=== PATIENT | female | born 1960 | race African-American/Black ===

== ENCOUNTER 2019-02-07 10:42 | Emergency (ER) | payer OTHER ==
[~2019-02-07] VITALS: Ht 170.2 cm; Wt 154.9 kg
[2019-02-07 10:43] VITALS: BP 127/92
--- NOTE | 2019-02-07 11:06 | NUR ---
PT AMBULATED TO ROOM 3 WITH STEADY GAIT.
--- NOTE | 2019-02-07 11:17 | NUR ---
PT A&OX4, BREATHING EVEN AND UNLABORED. SKIN WARM, PINK, AND DRY. AMBULATES WITH STEADY GAIT. C/O BILAT FOOT PAIN 9/10 X 1 MONTH, LEFT FOOT PAIN WORSE THAN RIGHT. PT HAD FALL 2 WEEKS AGO, DENIES LOC.
--- NOTE | 2019-02-07 12:24 | NUR ---
PT HAS BEEN EVALUATED BY DR. MCGINNIS.
--- NOTE | 2019-02-07 13:40 | NUR ---
PT RESTING QUIETLY. BREATHING EVEN AND UNLABORED. AWAITING DISPOSITION.
[2019-02-07 14:13] VITALS: BP 128/80
--- NOTE | 2019-02-07 14:13 | NUR ---
Patient discharged with v/s stable. Written and verbal after care instructions given and explained. Patient alert, oriented and verbalized understanding of instructions. Ambulatory with steady gait. All questions addressed prior to discharge. ID band removed. Patient advised to follow up with PMD. Opportunity to ask questions provided and answered.
== END 2019-02-07 14:13 | disposition home or self-care (01) ==
LOC: MED 10:42
DX: M79.2 Neuralgia and neuritis, unspecified (principal); E11.9 Type 2 diabetes mellitus without complications; I10 Essential (primary) hypertension; F32.9 Major depressive disorder, single episode, unspecified; Z90.710 Acquired absence of both cervix and uterus; Z88.6 Allergy status to analgesic agent; Z88.8 Allergy status to other drugs, medicaments and biological substances; Z98.890 Other specified postprocedural states
CPT/HCPCS: 73590; 73630; 93971; 99284; Q0092

== ENCOUNTER 2019-03-17 18:41 | Emergency (ER) | payer OTHER ==
[~2019-03-17] VITALS: Ht 170.2 cm; Wt 154.7 kg
[2019-03-17 18:41] VITALS: BP 102/63
--- NOTE | 2019-03-17 18:41 | NUR ---
Patient BIBA ACLS, transferred to bed 6. RN evaluating patient at bedside.
--- NOTE | 2019-03-17 18:45 | NUR ---
PT BIB BY AMBULANCE. C/O BILATERAL LEG PAIN, STATES PAIN AT HER BACK WELL. AMBULATED HERSELF TO THE BEDSIDE. BS 76 AT THIS TIME. HX OF HTN , ARTHIRITIS, DM. PT RESTING AT [facility], WILL CONTINUE TO MONITOR PT.
--- NOTE | 2019-03-17 19:00 | NUR ---
RECEIVED REPORT FROM KIAH GARZA. TRANSFER OF CARE AT THIS TIME.
--- NOTE | 2019-03-17 19:24 | NUR ---
DR. RASHID BEDSIDE EVALUATING PT
--- NOTE | 2019-03-17 19:41 | NUR ---
US AT BEDSIDE.
--- NOTE | 2019-03-17 20:01 | NUR ---
PATIENT TAKEN TO XRAY VIA GURHI WITH TECH.
[2019-03-17 20:05] LABS: BASOPHILS # (AUTO) 0.1 K/uL (0.00-0.22); BASOPHILS % (AUTO) 0.5 % (0.0-2.0); EOSINOPHILS # (AUTO) 0.3 K/uL (0-0.4); EOSINOPHILS % (AUTO) 2.8 % (0.0-4.0); HEMATOCRIT 32.3 % (36-48); HEMOGLOBIN 10.2 g/dL (12.0-16.0); LYMPHOCYTES % (AUTO) 18.7 % (20.5-51.1); MEAN CORPUSCULAR HEMOGLOBIN 27 pg (27-31); MEAN CORPUSCULAR HGB CONC 32 g/dL (33-37); MEAN CORPUSCULAR VOLUME 86.1 fL (80-94); MONOCYTES # (AUTO) 0.7 K/uL (0.8-1.0); MONOCYTES % (AUTO) 6.7 % (1.7-9.3); NEUTROPHILS # (AUTO) 7.6 K/uL (1.8-7.7); NEUTROPHILS % (AUTO) 71.3 % (42.2-75.2); PLATELET COUNT (AUTO) 204 K/uL (140-450); RED BLOOD CELL COUNT(AUTO) 3.76 MIL/uL (4.20-5.40); RED CELL DISTRIBUTION WIDTH 16.5 % (11.6-13.7); WHITE BLOOD COUNT (AUTO) 10.6 K/uL (4.8-10.8)
--- NOTE | 2019-03-17 20:14 | NUR ---
PATIENT RETURN FROM XRAY.
[2019-03-17 20:18] LABS: ANION GAP 12.8 (8-16); CARBON DIOXIDE 24.6 mmol/L (21-32); CREATININE 1.7 mg/dL (0.6-1.3); POTASSIUM 5.4 mmol/L (3.5-5.1)
[2019-03-17 20:25] LABS: ALBUMIN 3.7 g/dL (3.4-5.0); TOTAL BILIRUBIN 0.3 mg/dL (0.0-1.0)
[2019-03-17] MEDS ORDERED: HYDROcodone/APAP 5/325 MG 1 TAB TAB PO ONE (21:05)
--- NOTE | 2019-03-17 21:15 | NUR ---
RECEIVED REPORT FROM AM RN, PT LAYING IN BED, RR EVEN AND UNLABORED. VSS, REPORTS 7/10 LLE PAIN AT THIS TIME, ADMINISTERED NORCO PO ORDERED WITH EDUCATION, PT TOLERATED WELL.
--- NOTE | 2019-03-17 21:16 | NUR ---
DR RASHID AT BEDSIDE
[2019-03-17 22:06] VITALS: BP 91/54
== END 2019-03-17 22:06 | disposition home or self-care (01) ==
LOC: MED 18:41
DX: M54.10 Radiculopathy, site unspecified (principal); E11.9 Type 2 diabetes mellitus without complications; I10 Essential (primary) hypertension; Z90.710 Acquired absence of both cervix and uterus; Z88.8 Allergy status to other drugs, medicaments and biological substances
CPT/HCPCS: 36415; 72170; 80053; 82948; 83880; 85025; 93971; 99284; Q0092

== ENCOUNTER 2019-05-09 11:14 | Inpatient (IN) | payer OTHER ==
[~2019-05-09] VITALS: Ht 165.1 cm; Wt 152.0 kg
[2019-05-09] VITALS (19 sets, daily range): BP systolic 77–150; BP diastolic 50–103
--- NOTE | 2019-05-09 11:17 | NUR ---
PATIENT BIBA TO BED 08 AT THIS TIME,.
--- NOTE | 2019-05-09 11:30 | NUR ---
JONES FROM HOME FOR GEN WEAKNESS AND ALOC AFTER A WELFARE CHECK WAS DONE. PT WAS FOUND SITTING ON HER WALKER WITHOUT PANTS ON. PT STATES SHE HASNT EATEN IN 4 DAYS. PER EMS, CASTING COORDINATOR CONFIRMED THERE WAS NOT ANY FOOD IN THE HOUSE. STRENGTH EQUAL BLE/BUE, NO FACIAL ASSYMETRY NOTED, NO UNILATERAL WEAKNESS NOTED. PT IS A & O X4. FSBS 92. PT PLACED IN GOWN AND ON BEDSIDE CROWN PERFORATOR OPERATOR AT THIS TIME.
[2019-05-09] MEDS ORDERED: NACL 0.9% 1,000 ML IV ONE ×2 (12:15→15:20)
[2019-05-09 13:14] LABS: BASOPHILS % (AUTO) 0.5 % (0.0-2.0); EOSINOPHILS % (AUTO) 0.1 % (0.0-4.0); HEMATOCRIT 32.3 % (36-48); LYMPHOCYTES # (AUTO) 0.8 K/uL (2.5-16.5); LYMPHOCYTES % (AUTO) 7.4 % (20.5-51.1); MEAN CORPUSCULAR HEMOGLOBIN 27 pg (27-31); MEAN CORPUSCULAR HGB CONC 31 g/dL (33-37); MEAN CORPUSCULAR VOLUME 86.9 fL (80-94); MONOCYTES # (AUTO) 0.8 K/uL (0.8-1.0); MONOCYTES % (AUTO) 7.8 % (1.7-9.3); NEUTROPHILS # (AUTO) 8.7 K/uL (1.8-7.7); NEUTROPHILS % (AUTO) 84.2 % (42.2-75.2); PLATELET COUNT (AUTO) 263 K/uL (140-450); RED BLOOD CELL COUNT(AUTO) 3.72 MIL/uL (4.20-5.40)
--- NOTE | 2019-05-09 13:21 | NUR ---
# 14 FR Rocha catheter utilizing sterile technique. Immediate return of 200 ml CLEAR YELLOW urine noted. Urine sample collected and sent to lab. Pt tolerated procedure WELL.
--- NOTE | 2019-05-09 13:23 | NUR ---
BP 88/41, DR. MCGININS MADE AWARE
[2019-05-09 13:31] LABS: WHITE BLOOD COUNT (AUTO) 10.3 K/uL (4.8-10.8)
[2019-05-09 13:32] LABS: ALBUMIN 3.5 g/dL (3.4-5.0); ANION GAP 24.8 (8-16); CARBON DIOXIDE 18.5 mmol/L (21-32); TOTAL BILIRUBIN 0.5 mg/dL (0.0-1.0)
[2019-05-09 13:44] LABS: POTASSIUM 8.3 mmol/L (3.5-5.1)
[2019-05-09 13:45] LABS: CREATININE 13.3 mg/dL (0.6-1.3)
[2019-05-09] MEDS ORDERED: SODIUM BICARBONATE 8.4% PFS 50 MEQ/50 ML SYR IVP ONE (13:50)
[2019-05-09] MEDS ORDERED: ALBUTEROL 0.083% 2.5 MG/3 ML NEBU INH ONE (13:50)
[2019-05-09] MEDS ORDERED: PATIROMER CALCIUM SORBITEX 8.4 GM PKT PO ONE (13:50)
[2019-05-09] MEDS ORDERED: DEXTROSE 50% 50 ML SYR IVP ONE (13:50)
[2019-05-09] MEDS ORDERED: INSULIN REGULAR, HUMAN 100 UNIT/ML VIAL SUBQ ONE (13:50)
--- NOTE | 2019-05-09 14:00 | NUR ---
pt resting in bed, alert and arousable to verbal stimuli
[2019-05-09 14:08] LABS: APPEARANCE,URINE HAZY (CLEAR); BILIRUBIN,URINE NEGATIVE (NEGATIVE); BLOOD, URINE NEGATIVE (NEGATIVE); COLOR,URINE YELLOW (YELLOW); LEUKOCYTE ESTERASE ,URINE 2+ (NEGATIVE); NITRITE, URINE NEGATIVE (NEGATIVE); UGLUCOSE NEGATIVE (NEGATIVE)
[2019-05-09 14:17] LABS: RBC,URINE 0 /HPF (0-5)
[2019-05-09 14:18] LABS: WBC,URINE 16-25 (MOD) /HPF (0-5)
--- NOTE | 2019-05-09 14:30 | NUR ---
pt bp 86/56, dr. connolly aware
[2019-05-09] MEDS ORDERED: ONDANSETRON 4 MG/2 ML VIAL IM/IVP PRN (14:45)
[2019-05-09] MEDS ORDERED: ACETAMINOPHEN 325 MG TAB PO PRN (14:45)
[2019-05-09] MEDS ORDERED: ZOLPIDEM 5 MG TAB PO PRN (14:45)
[2019-05-09] MEDS ORDERED: DOCUSATE SODIUM 100 MG GELCAP PO PRN (14:45)
[2019-05-09] MEDS ORDERED: LORazepam 2 MG/ML VIAL IM/IVP PRN (14:45)
[2019-05-09] MEDS ORDERED: HYDROcodone/APAP 5/325 MG 1 TAB TAB PO PRN (14:45)
[2019-05-09] MEDS ORDERED: cefTRIAXone 1,000 MG VIAL ONE (14:54)
[2019-05-09] MEDS ORDERED: DEXT 5% /NACL 0.9% 1,000 ML IV SCH (15:20)
[2019-05-09] MEDS ORDERED: NACL 0.9% 2,000 ML IV SCH (15:35)
--- NOTE | 2019-05-09 15:40 | NUR ---
wound noted to inside of pt buttocks, photo taken.
--- NOTE | 2019-05-09 15:45 | NUR ---
RECEIVE PT. FROM ER IN [facility].SHE IS AWAKE AND CONFUSE. SKIN DRY HAS INCONTINENT DERMATITIS ON PERINEAL AREA[SEE PHOTO.] IV FLUID HAS #22 GATE OH RT ARM , INFUSING 0.9NS BOLUS, . ADM TO ICU#2 NASAL SWAB FOS MRSA TAKEN SENT TO LAB.
--- NOTE | 2019-05-09 15:53 | NUR ---
Patient will be admitted to care of [facility]. Admited to ICU. Will go to room 2. Belongings list completed. Report to KAYLA KING.
[2019-05-09] MEDS ORDERED: Z-GUARD PASTE TP PRN (15:55)
[2019-05-09] MEDS ORDERED: INSULIN LISPRO SLIDING SCALE 100 UNITS/ML VIAL SUBQ PRN (16:00)
[2019-05-09] MEDS ORDERED: DEXTROSE 50% 50 ML SYR IVP PRN (16:00)
--- NOTE | 2019-05-09 16:00 | NUR ---
DR URRUTIA AT BED SIDE , CALL THE SON PJ OBTAIN CONSENT FOR KIP CATH INSERTION .
[2019-05-09] MEDS ORDERED: SODIUM BICARBONATE 8.4% 50 MEQ in DEXTROSE 5% 1,000 ML IV SCH (16:15)
[2019-05-09] MEDS: MORPHINE SULFATE 2 MG/ML SYR IVP PRN (16:36)
[2019-05-09] MEDS ORDERED: LORazepam 2 MG/ML VIAL IM/IVP SCH (16:59)
[2019-05-09] MEDS: BLOOD GLUCOSE MONITORING 1 DEV DEV FS SCH ×2 (17:03→21:46)
[2019-05-09] MEDS ORDERED: LORazepam 2 MG/ML VIAL ONE (17:09)
--- NOTE | 2019-05-09 17:15 | NUR ---
KIP ELENA. INSERTED BY DR. URRUTIA.
[2019-05-09 17:25] LABS: PROTHROMBIN TIME 10.5 secs (10.8-13.4)
[2019-05-09 17:26] LABS: ANION GAP 26.3 (8-16); CARBON DIOXIDE 16.1 mmol/L (21-32)
[2019-05-09 17:39] LABS: AMYLASE 181 U/L (25-115); LIPASE 1171 U/L (73-393); MAGNESIUM 2.8 mg/dL (1.8-2.4); THYROID STIMULATING HORMONE 0.62 uIU/mL (0.34-3.74)
[2019-05-09 17:46] LABS: POTASSIUM 7.4 mmol/L (3.5-5.1)
[2019-05-09 17:47] LABS: PHOSPHORUS 11.6 mg/dL (2.5-4.9)
--- NOTE | 2019-05-09 17:54 | NUR ---
SEEN BY DR. BANERJEE AT BED SIDE. HEMODIALYSIS ORDERED. CALLED [facility] TO SCHEDULE FOR HD.
[2019-05-09 18:27] LABS: BARBITURATE, URINE POS. ng/ml (NEG <=200); CANNABINOID, URINE NEG. ng/mL (NEG <=50); COCAINE, URINE NEG. ng/mL (NEG <=300); OPIATE, URINE NEG. ng/mL (NEG <=2000); PHENCYCLIDINE SCREEN,URINE NEG. ng/mL (NEG <=25)
[2019-05-09] MEDS ORDERED: NOREPINEPHRINE 16 MG in DEXTROSE 5% 250 ML IV PRN (18:45)
--- NOTE | 2019-05-09 19:00 | NUR ---
HEMODIALYSIS NURSE ARRIVED.
--- NOTE | 2019-05-09 19:20 | NUR ---
REPORT GIVED TO JOHN GARZA .
[2019-05-09 19:22] LABS: BENZODIAZEPINE, URINE POS. ng/mL (NEG <=200)
--- NOTE | 2019-05-09 19:25 | NUR ---
RECEIVED REPORT FROM DAYSHIFT NURSE AT PATIENT'S BEDSIDE, DIALYSIS NURSE AT BEDSIDE STARTING DIALYSIS. PATIENT SLIGHTLY SEDATED FROM ATIVAN, EYES CLOSED AND CANNOT FOLLOW COMMANDS, ON NASAL CANNULA 3L WITH SATURATION 100%.
[2019-05-09 19:29] LABS: CARBON DIOXIDE 21.2 mmol/L (21-32)
[2019-05-09 19:32] LABS: POTASSIUM 6.2 mmol/L (3.5-5.1)
[2019-05-09 19:33] LABS: CREATININE 10.9 mg/dL (0.6-1.3)
[2019-05-09] MEDS: SODIUM BICARBONATE 8.4% 150 MEQ in DEXTROSE 5% 1,000 ML IV SCH (19:57)
--- NOTE | 2019-05-09 20:00 | NUR ---
RECEIVED PATIENT RESTING WELL IN BED, EYES CLOSED, DOES NOT WITHDRAW TO PAIN, EYES ARE PERRL, SLUGGISH 3MM. SKIN IS WARM AND DRY. TEMP 96.8, HR-100, BP-86/68, O2SAT 99% AND RR-9. PATIENT IS ON NASAL CANNULA 3L. RIGHT IJ KIP CATH WITH PIGTAIL INSERTED TODAY, RIGHT FOREARM PERIPHERAL IV 22G, FLUSHED, AND PATENT. LUNG SOUNDS ARE CLEAR, S1S2 HEARD. CAP REFILL <3 SECONDS. BOWEL SOUNDS ARE HYPOACTIVE, ABDOMEN LARGE, SOFT, AND NONTENDER. SKIN IS NOT INTACT, A RIGHT KNEE SCAB/SCRAPE IS NOTED AND PATIENT HAS INCONTINENT DERMATITIS TO THE FOLDS OF BUTTOCKS. BED IN LOWEST POSITION, SIDE RAILS UP, SAFETY CHECKS ARE ASSESSED. MD MADE AWARE OF LOW BLOOD PRESSURE. WILL FOLLOWUP ON NEW ORDERS.
[2019-05-09] MEDS: NACL 0.9% 1,000 ML IV SCH (20:29)
--- NOTE | 2019-05-09 22:37 | NUR ---
DIALYSIS COMPLETE, PATIENT TOLERATED WELL, 0 OUTPUT.
--- NOTE | 2019-05-09 22:42 | NUR ---
DISCONTINUED LEVOPHED DRIP, PATIENT'S BLOOD PRESSURE REMAINS WITHIN NORMAL LIMITS. WILL CONTINUE TO MONITOR.
[2019-05-10] VITALS (10 sets, daily range): BP systolic 93–124; BP diastolic 53–69
--- NOTE | 2019-05-10 | NUR ---
PATIENT TACHYCARDIC, HEART RATE RANGES BETWEEN 105-120'S. ALL OTHER VITAL SIGNS WITHIN NORMAL LIMITS. SBP MAINTAINS >90. PATIENT RESTING COMFORTABLY IN BED, EYES CLOSED, SIDERAILS UP AND BED LOCKED AND IN LOWEST POSITION. CONTINUE WITH CLOSE MONITORING.
[2019-05-10] MEDS: SODIUM BICARBONATE 8.4% 150 MEQ in DEXTROSE 5% 1,000 ML IV SCH (02:12)
--- NOTE | 2019-05-10 03:00 | NUR ---
SUCCESSFULLY INSERTED ROLLE CATHETER IN FIRST ATTEMPT, PATIENT TOLERATED WELL. URINE IS YELLOW AND HAZY AND HAS ABNORMAL ODOR.
[2019-05-10] MEDS: NACL 0.9% 1,000 ML IV SCH (03:04)
--- NOTE | 2019-05-10 03:10 | NUR ---
PATIENT IS AWAKE BUT CANNOT OPEN EYES OR FOLLOW COMMANDS. PATIENT IS CONFUSED AND TALKING INCOMPREHENSIBLY. WHEN REDIRECTED, PATIENT CONTINUES WITH INCOMPREHENSIBLE SPEECH AND SLURRED WORDS. PATIENT ONLY ALERT TO NAME. SINUS TACH ON MONITOR, EYES REACTIVE TO LIGHT, AND AFEBRILE.
--- NOTE | 2019-05-10 04:15 | NUR ---
PATIENT TOLERATED BED BATH FAIRLY. PROVIDED SKIN CARE AND APPLIED DRESSING TO BUTTOCK FOLD, MINOR BLEEDING NOTED.
--- NOTE | 2019-05-10 05:40 | NUR ---
PATIENT BACK FROM HEAD CT, TOLERATED WELL. PATIENT MORE ALERT, ABLE TO EXPLAIN HOW HER MINIATURE TRAIN DRIVER DID NOT PROVIDE FOOD FOR HER FOR 4 DAYS AND THAT SHE DID NOT KNOW SHE WOULD GO INTO SHOCK SO QUICKLY. PATIENT IS REQUESTING TO EAT. DENIES PAIN. WILL CONTINUE TO MONITOR
[2019-05-10 06:04] LABS: BASOPHILS % (AUTO) 0.1 % (0.0-2.0); EOSINOPHILS # (AUTO) 0.1 K/uL (0-0.4); EOSINOPHILS % (AUTO) 0.5 % (0.0-4.0); HEMATOCRIT 27.6 % (36-48); HEMOGLOBIN 8.8 g/dL (12.0-16.0); LYMPHOCYTES # (AUTO) 0.5 K/uL (2.5-16.5); LYMPHOCYTES % (AUTO) 5.5 % (20.5-51.1); MEAN CORPUSCULAR HEMOGLOBIN 27 pg (27-31); MEAN CORPUSCULAR HGB CONC 32 g/dL (33-37); MEAN CORPUSCULAR VOLUME 84.2 fL (80-94); MONOCYTES # (AUTO) 0.7 K/uL (0.8-1.0); MONOCYTES % (AUTO) 7.2 % (1.7-9.3); NEUTROPHILS # (AUTO) 8.3 K/uL (1.8-7.7); NEUTROPHILS % (AUTO) 86.7 % (42.2-75.2); PLATELET COUNT (AUTO) 205 K/uL (140-450); RED BLOOD CELL COUNT(AUTO) 3.28 MIL/uL (4.20-5.40); RED CELL DISTRIBUTION WIDTH 17.1 % (11.6-13.7); WHITE BLOOD COUNT (AUTO) 9.6 K/uL (4.8-10.8)
--- NOTE | 2019-05-10 06:21 | NUR ---
DR. URRUTIA IN TO ASSESS PATIENT, WILL GIVE UPDATES AND HOME MEDICATIONS .
[2019-05-10] MEDS ORDERED: LISI30TA6 PO (06:27)
[2019-05-10] MEDS ORDERED: BUS5 PO (06:27)
[2019-05-10] MEDS ORDERED: ATOR40TA PO (06:27)
[2019-05-10] MEDS ORDERED: CETI-32 PO (06:27)
[2019-05-10] MEDS ORDERED: ALPR0.5T2 PO (06:27)
[2019-05-10] MEDS ORDERED: QUET200T PO (06:27)
[2019-05-10] MEDS ORDERED: GABA800T6 PO (06:27)
[2019-05-10] MEDS ORDERED: METF-336 PO (06:27)
[2019-05-10] MEDS ORDERED: MAGN241.1 PO (06:27)
[2019-05-10] MEDS ORDERED: ALPRAZolam 0.5 MG TAB PO PRN (06:45)
[2019-05-10] MEDS ORDERED: SERT100T PO (06:46)
--- NOTE | 2019-05-10 07:01 | NUR ---
SAAD DONE. RESULTS IN [employer]. TRYING TO REACH MD URRUTIA WITH RESULTS. NO DISTRESS OR SOB NOTED.
[2019-05-10 07:07] LABS: CARBON DIOXIDE 29.3 mmol/L (21-32); POTASSIUM 4.3 mmol/L (3.5-5.1)
[2019-05-10 07:11] LABS: CREATININE 5.6 mg/dL (0.6-1.3)
[2019-05-10 07:13] LABS: MAGNESIUM 1.7 mg/dL (1.8-2.4); PHOSPHORUS 5.6 mg/dL (2.5-4.9)
[2019-05-10 07:21] LABS: CHOL/HDL RATIO 4.3 (1-4.5)
[2019-05-10] MEDS: BLOOD GLUCOSE MONITORING 1 DEV DEV FS SCH ×4 (07:57→20:13)
--- NOTE | 2019-05-10 08:00 | NUR ---
RECEIVED PATIENT ON ROOM AIR SO2 >94%, NO SIGNS OF DISTRESS, PATIENT BARELY OPENS EYES TO VERBAL COMMANDS, ABLE TO STATE HER NAME, DOES NOT ANSWER TO ANY OTHER QUESTIONS THE RN ASKED OF HER., WITH HD CATHETER RIGHT IJ WITH PIGTAIL CONNECTED TO BICARBONATE DRIP, WITH GAUGE 22 PERIPHERAL LINE AT TIGHT FOREARM, ROLLE CATHETER WITH CLOUDY YELLOW URINE NOTED IN THE BAG, SKIN PEEL AT SACRAL AREA, CALL MONIQUE WITHIN REACH
[2019-05-10] MEDS: SERTRALINE 50 MG TAB PO SCH (09:00)
[2019-05-10] MEDS: LACTOBACILLUS RHAMNOSUS GG 1 EACH CAP PO SCH (09:00)
[2019-05-10] MEDS: busPIRone 5 MG TAB PO SCH ×3 (09:00→16:16)
--- NOTE | 2019-05-10 09:00 | NUR ---
DR. URRUTIA IN THE UNIT AND MADE AWARE PATIENT DOES NOT HAVE SUSTAINED EYE OPENING, BARELY OPENING COMMANDS. INFORMED OF LATES HC03 RESULT FROM ABG IS HIGH AND BICARBONATE DRIP PUT ON HOLD BY RN. PER DR. URRUTIA "OK TO HOLD MEDICATIONS, I WILL INFORM DR. CHAMBERS TO DISCONTINUE THE BICARBONATE DRIP"
[2019-05-10] MEDS: Z-GUARD PASTE TP SCH (09:13)
[2019-05-10] MEDS ORDERED: PANTOPRAZOLE 40 MG INJ VIAL IVP SCH (09:29)
--- NOTE | 2019-05-10 09:54 | NUR ---
PATIENT HAS BEEN SCREENED AND CATEGORIZED HIGH NUTRITION RISK. PATIENT WILL BE SEEN WITHIN 1-2 DAYS OF ADMISSION. 05/10/19-05/11/[address]
--- NOTE | 2019-05-10 10:08 | NUR ---
WOUND CARE EVALUATION NOTE: REASON FOR EVALUATION: BUTTOCKS INCONTINENT ASSOCIATED DERMATITIS A 58 Y/O FEMALE PT. ADMITTED FROM HOME TO [facility] WITH PMH of DM, HTN, BIPOLAR,DEPRESSION AND OBESITY, PT IS ASLEEP. SKIN IS WARM AND DRY, BLE NO HAIR GROWTH, +2 EDEMA TO BILATERAL LOWER LEGS. BILATERAL DORSAL PEDAL PULSES PRESENT AND NORMAL. PLAN OF CARE DISCUSSED WITH PRIMARY RN INTEGUMENTARY: -INCONTINENT ASSOCIATE DERMATITIS TO PERIANAL WITH MULTIPLE SKIN EROSIONS B/L BUTTOCKS TO PERIANAL, WOUND BED IS RED AND MOIST, FABIANO -WOUND SKIN REDNESS -BILATERAL HEELS BLANCHABLE REDNESS RECOMMENDATIONS: -CLEANSE PERIANAL AND B/L BUTTOCKS WITH SOAP AND WATER, PAT DRY, APPLY Z GUARD BID AND PRN WITH SOILING. -APPLY OPTIFOAM TO SACRALCOCCYX QD AND PRN SOILING PREVENTION -APPLY HEEL PROTECTORSTO RIGHT HEEL AT ALL TIMES -OFFLOAD BILATERAL HEELS BY PLACING PILLOWS UNDER CALVES UNLESS OTHERWISE CONTRAINDICATED -PRESSURE REDISTUBUTION SURFACE THERAPY BY POISONING WEDGE/PILLOWS -TURN AND REPOSITION Q2H, OFFLOAD SACRALCOCCYX BY TURNING RIGHT AND LEFT -CONTINUE TO FOLLOW RD RECOMMENDATIONS ALL ABOVE RECOMMENDATIONS DISCUSSED WITH PRIMARY RN PLEASE CONTACT WOUND CARE NURSE FOR ANY QUESTION AND CHANGE OF WOUND CONDITION.
--- NOTE | 2019-05-10 11:15 | NUR ---
TELEPHONE ORDER RECEIVED FROM DR. CHAMBERS TO STOP BICARBONATE DRIP AND START D5 HALF NORMAL SALINE 60 ML/HR. AND PATIENT WILL BE HAVING ANOTHER DIALYSIS TODAY-READBACK AND VERIFIED
--- NOTE | 2019-05-10 11:20 | NUR ---
DR. HOUSE AT BEDSIDE
[2019-05-10] MEDS: DEXT 5% / NACL 0.45% 1,000 ML IV SCH (11:39)
--- NOTE | 2019-05-10 12:00 | NUR ---
INFORMED ROUTING MACHINE OPERATOR MARTIN OVER THE PHONE ABOUT THE ORDER FOR DIALYSIS. "WILL COME TONIGHT" PER MARTIN
[2019-05-10] MEDS ORDERED: PROBIOTIC SCREEN 1 EA MISC MC PRN (12:30)
--- NOTE | 2019-05-10 12:50 | NUR ---
PATIENT'S SON PJ AT BEDSIDE
--- NOTE | 2019-05-10 14:07 | NUR ---
S.T. BEDSIDE SWALLOW EVAL COMPLETED See report for details. Pt presents w/ mild-mod oral difficulty managing solids due to being edentulous. Pt reported being able to gum up solids, but did not appear to manage well during this eval. No overt s/s aspiration observed. Pt unable to feed self at this time due to RUE ataxia. Recommend: 1) Advance to mechanical soft ground diet, thin liquids ok. Straws ok 2) P.O. meds as tolerated. 3) Defer to MD/DO for dietary restrictions 4) 1:1 feeder due to RUE discoordination. 5) Advance diet conservatively when dentures are made available and pt's strength/coordination improves. No further tx indicated at this time. DC to [facility]. Endorsed to KAYLA Delaney. Time [id number]
--- NOTE | 2019-05-10 15:00 | NUR ---
ATTEMPTED TO CALL MEDICAL RECORD OF [facility]. PHONE # [phone] NO ANSWER SO LEFT A MESSAGE TO CALL BACK [facility].
--- NOTE | 2019-05-10 15:34 | NUR ---
[facility] AND SPOKE TO CHAPARRO (PHONE NO. [phone]) THAT DR. URRUTIA IS REQUESTING PATIENT'S RECORDS. FAXED(FAX NO. [phone]) TO HER AUTHORIZATION FOR USE OR DISCLOSURE OF HEALTH INFORMATION. AWAITING RESPONSE
--- NOTE | 2019-05-10 15:37 | NUR ---
05/10/19 RD INITIAL ASSESSMENT COMPLETED PLEASE REFER TO NUTRITION ASSESSMENT UNDER CARE ACTIVITY FOR ESTIMATED NUTRITIONAL NEEDS. 1. RECOMMEND CCHO 60 GM AND RENAL MECHANICAL SOFT DIET TOLERATED 2. RD PROVIDED NUTRITION EDUCATION ON CONSISTENT CARBOHYDRATE INTAKE, HEALTHY WEIGHT AND LOWERING CHOLESTEROL 3. RD TO FOLLOW-UP 3-5 DAYS, MODERATE RISK CARLYLE ZAPIEN RD
--- NOTE | 2019-05-10 15:46 | NUR ---
AUTHORIZATION FOR USE OR DISCLOSURE OF HEALTH INFORMATION RE FAXED BY UDAY KING TO SAME FAX NUMBER
--- NOTE | 2019-05-10 18:58 | NUR ---
REPORT GIVEN TO NIGHT RN
--- NOTE | 2019-05-10 19:00 | NUR ---
RECEIVED REPORT FROM DAYSHIFT NURSE AT BEDSIDE, PATIENT AWAKE SITTING UP IN BED, CALM AND COMFORTABLE. WILL FOLLOWUP CARE.
--- NOTE | 2019-05-10 19:50 | NUR ---
RECEIVED PATIENT RESTING WELL IN BED, AWAKE AND ALERT TO NAME AND PLACE. MAKES NEEDS KNOWN, FOLLOWS SIMPLE COMMANDS. PATIENT ON ROOM AIR. SKIN WARM AND DRY TEMP 98.9. LUNG SOUNDS DIMINISHED ALL THROUGHOUT. UNLABORED BREATHING. S1S2, SINUS TACH ON MONITOR. BP AND RR WNL. PATIENT HAS RIGHT IJ KIP CATH WITH PIGTAIL RUNNING D5 1/2NS @ 60ML/HR. PERIPHERAL IV RIGHT FOREARM 22G, FLUSHED AND SALINE LOCKED. BOWEL SOUNDS ARE ACTIVE, ABDOMEN LARGE, SOFT AND NONTENDER. ROLLE CATH IN PLACE WITH CLEAR YELLOW URINE IN COLLECTION BAG. SIDERAILS UP, BED LOCKED AND IN LOW POSITION, PATIENT HAS CALL LIGHT IN HAND.
--- NOTE | 2019-05-10 21:20 | NUR ---
DESATURATING TO 85%, PATIENT RESTING WELL IN BED, EYES CLOSED, SNORING,STARTED ON 2L NASAL CANNULA, 02SAT 100%. PATIENT TOLERATING WELL.
--- NOTE | 2019-05-10 21:30 | NUR ---
CALL WAS MADE TO DIALYSIS NURSE MARIO IN REGARDS TO DIALYSIS DUE TODAY, CONFIRMED SHE IS RUNNING BEHIND.
--- NOTE | 2019-05-10 21:45 | NUR ---
DIALYSIS NURSE AT PATIENTS BEDSIDE
--- NOTE | 2019-05-10 22:30 | NUR ---
PAGED TREND INVESTIGATOR NEPHRO PER DIALYSIS NURSES REQUEST. REGARDING KIP CATHETER NOT WORKING.
--- NOTE | 2019-05-10 22:45 | NUR ---
CALLED RESIDENT DOCTOR, DR. GATES TO MAKE AWARE OF KIP CATHETER NOT WORKING FOR DIALYSIS TODAY, DIALYSIS NURSE RECOMMENDS ANTITHROMBOLYTIC, CONFIRMED ORDER TO TRY THROMBOLYTIC FIRST.
[2019-05-10] MEDS ORDERED: ALTEPLASE 100 MG VIAL IV ONE (23:00)
--- NOTE | 2019-05-10 23:10 | NUR ---
DR. ECHEVARRIA MACHINE EGG WASHER NEPHRO DOCTOR CALLED BACK AND MADE AWARE OF EVENTS REGARDING DELAYED DIALYSIS, CONFIRMED OK TO TRY THE ACTIVASE AND RETRY DIALYSIS FIRST THING IN THE MORNING. DIALYSIS NURSE PUSHED ACTIVASE PER DIALYSIS PORT, WRAPPED LINES WITH DRESSING AND MADE NOTE FOR A.M DIALYSIS NURSE. OTHER LINE IN RIJ NOT OK TO USE UNTIL DIALYSIS RESTARTED, SWITCH FLUIDS TO PERIPHERAL LINE.
[2019-05-10] MEDS ORDERED: ALTEPLASE 2 MG VIAL MC ONE (23:15)
[2019-05-10] MEDS: MORPHINE SULFATE 2 MG/ML SYR IVP PRN (23:30)
--- NOTE | 2019-05-10 23:30 | NUR ---
PATIENT REQUESTING PAIN MEDICATIONS FOR SEVERE PAIN IN STOMACH AND BACK. DIALYSIS NURSE AT BEDSIDE CHANGING CENTRAL LINE DRESSING. MORPHINE IVP 2 MG GIVEN, BP WNL, HEART RATE TACHY. WILL CONTINUE TO MONITOR
[2019-05-11] VITALS: BP 104/61
[2019-05-11] MEDS ORDERED: WATER STERILE 10 ML MC ONE
--- NOTE | 2019-05-11 00:30 | NUR ---
PATIENT TURNED AND REPOSITIONED, REQUESTED TO REPOSITION HERSELF WITHOUT ASSISTANCE, PATIENT UNABLE TO MOVE UP IN BED OR TURN TO RIGHT SIDE. PATIENT CAN TURN OVER TO LEFT SSIDE Addendum: 05/11/19 at 0150 by Marielena Sue RN PILLOWS APPLIED TO OFFSET PRESSURE AREAS TO THE BACK. ASKED PATIENT IF SHE CAN PERFORM ACTIVE ROM EXERCISES TO LOWER EXTREMITIES. PATIENT ABLE TO LIFT LEGS ON HER OWN, TOLERATED WELL. HEEL PROTECTORS APPLIED.
--- NOTE | 2019-05-11 01:00 | NUR ---
PATIENT RESTING WELL IN BED, EYES CLOSED, SNORING, BREATHING IS EVEN AND UNLABORED, SATURATION IS 100% WITH 2L NASAL CANNULA. HEART RATE IS >100BPM. FLACC 0
--- NOTE | 2019-05-11 03:15 | NUR ---
LAB CONFIRMED PATIENTS BLOOD CULTURES IS POSITIVE FOR GRAM NEGATIVE RODS. WILL ENDORSE TO RESIDENT DOCTORS
[2019-05-11 04:00] VITALS: BP 115/63
[2019-05-11] MEDS: MORPHINE SULFATE 2 MG/ML SYR IVP PRN ×2 (04:57→20:37)
--- NOTE | 2019-05-11 04:57 | NUR ---
PATIENT COMPLAINING OF PAIN IN THE STOMACH AND BACK AND RATES IT A 9. MORPHINE 2MG IVP WAS GIVEN. WILL REASSESS PAIN. PATIENT SITTING UP IN BED WATCHING TV
[2019-05-11] MEDS: DEXT 5% / NACL 0.45% 1,000 ML IV SCH ×2 (05:01→20:36)
[2019-05-11 05:30] LABS: ANION GAP 10.2 (8-16); CARBON DIOXIDE 33.6 mmol/L (21-32); POTASSIUM 3.8 mmol/L (3.5-5.1)
[2019-05-11 05:35] LABS: MAGNESIUM 1.2 mg/dL (1.8-2.4); PHOSPHORUS 2.4 mg/dL (2.5-4.9)
--- NOTE | 2019-05-11 06:00 | NUR ---
SPONGE BATH FABIANO CARE AND ROLLE CARE PROVIDED, ORAL RINSE PROVIDED. PATIENT TOLERATED FAIRLY, DRESSING TO BUTTOCKS CHANGED. SKIN IN BUTTOCK FOLDS ARE PEELING OFF WITH RED AND PINK SURROUNDING SKIN. SUPERFICIAL WOUNDS
[2019-05-11 06:09] LABS: HEPATITIS A ANTIBODY IGM Negative (Negative); HEPATITIS B CORE AB TOTAL Negative (Negative); HEPATITIS B SURFACE ANTIBODY Non Reactive (.); HEPATITIS B SURFACE ANTIGEN Negative (Negative)
[2019-05-11 06:40] LABS: BASOPHILS % (AUTO) 0.2 % (0.0-2.0); EOSINOPHILS # (AUTO) 0.1 K/uL (0-0.4); HEMATOCRIT 27.7 % (36-48); HEMOGLOBIN 8.8 g/dL (12.0-16.0); LYMPHOCYTES # (AUTO) 0.9 K/uL (2.5-16.5); LYMPHOCYTES % (AUTO) 10.2 % (20.5-51.1); MEAN CORPUSCULAR HEMOGLOBIN 27 pg (27-31); MEAN CORPUSCULAR HGB CONC 32 g/dL (33-37); MONOCYTES # (AUTO) 0.9 K/uL (0.8-1.0); MONOCYTES % (AUTO) 9.6 % (1.7-9.3); NEUTROPHILS # (AUTO) 7.3 K/uL (1.8-7.7); PLATELET COUNT (AUTO) 183 K/uL (140-450); RED BLOOD CELL COUNT(AUTO) 3.25 MIL/uL (4.20-5.40); RED CELL DISTRIBUTION WIDTH 17.1 % (11.6-13.7); WHITE BLOOD COUNT (AUTO) 9.3 K/uL (4.8-10.8)
--- NOTE | 2019-05-11 07:30 | NUR ---
RECEIVED BEDSIDE REPORT FROM SAW SHARPENER RN, PT IS AAOX4, ABLE TO FOLLOW COMMANDS AND MAKE NEEDS KNOWN, VSS, STATED LOWER BACK PAIN, WILL MEDICATE WITH PAIN MEDICATION, NO S/S OF DISTRESS, CLEAR LUNG SOUNDS SCARLET, ON O2 AT 2L VIA NC, O2 SAT 97%, DENIES CHEST PAIN, SR ON GAMEROOM TECHNICIAN, CAP REFILL <3 S, LARGE SOFT ABDOMEN WITH ACTIVE BOWEL SOUNDS, ROLLE CATHETER IN PLACE, CLEAR YELLOW URINE VIA GRAVITY, SKIN IS WARM AND DRY TO TOUCH, OPEN WOUND PRESENT (SEE WOUND ASSESSMENT), KIP CATH TO RIJ, SL, IV TO RIGHT FOREARM, PATENT, RUNNING D5 1/2 NS AT 60ML/HR, ABLE TO MOVE ALL EXTREMITIES, SLIGHT WEAKNESS NOTED, HOB ELEVATED TO 30 DEGREES, SAFETY MEASURE IN PLACE, POSITION CHANGED FOR COMFORT, WILL CONTINUE TO MONITOR.
[2019-05-11 08:00] VITALS: BP 130/65
[2019-05-11] MEDS ORDERED: MAG SULF 2000 MG/WATER PREMIX 50 ML IV SCH (08:00)
[2019-05-11] MEDS: BLOOD GLUCOSE MONITORING 1 DEV DEV FS SCH ×4 (08:01→20:36)
[2019-05-11] MEDS: SERTRALINE 50 MG TAB PO SCH (08:09)
[2019-05-11] MEDS: LACTOBACILLUS RHAMNOSUS GG 1 EACH CAP PO SCH (08:09)
[2019-05-11] MEDS: PANTOPRAZOLE 40 MG INJ VIAL IVP SCH (08:09)
[2019-05-11] MEDS: busPIRone 5 MG TAB PO SCH ×3 (08:12→16:43)
[2019-05-11] MEDS: Z-GUARD PASTE TP SCH (08:14)
--- NOTE | 2019-05-11 08:30 | NUR ---
DIALYSIS NURSE AT BEDSIDE, STATED PT'S RINA CATH NOT WORKING, WHICH IS SHOWING HIGH PRESSURE, COULD NOT RUN WITH THE MACHINE, DR. URRUTIA NOTIFIED.
[2019-05-11 08:45] LABS: CKMB RELATIVE INDEX 0.7 (0.0-2.5); CREATINE KINASE MB 5.8 ng/mL (0-3.6)
--- NOTE | 2019-05-11 08:51 | NUR ---
DR. ECHEVARRIA NOTIFIED THAT DIALYSIS NURSE TRIED TO DO HEMODIALYSIS THIS MORNING BUT CATHETER IS NOT WORKING. NOTIFIED OF BMP RESULTS. WILL BE HERE TO SEE PT.
--- NOTE | 2019-05-11 09:00 | NUR ---
SCHEDULED MEDICATION GIVEN, PT TOLERATED WELL, ABLE TO SWOLLEN PILLS WHOLE.
[2019-05-11 12:00] VITALS: BP 101/61
--- NOTE | 2019-05-11 12:00 | NUR ---
PT RESTING IN BED, NO S/S OF DISTRESS, VSS, DENIES PAIN, POSITION CHANGED FOR COMFORT.
--- NOTE | 2019-05-11 13:40 | NUR ---
DR. JAY CAME IN TO SEE PT AT BEDSIDE, UPDATED PT'S CONDITION, WILL FOLLOW UP WITH NEW ORDERS.
--- NOTE | 2019-05-11 14:00 | NUR ---
PT IS WATCHING TV, NO S/S OF DISTRESS, VSS, DENIES PAIN, POSITION CHANGED FOR COMFORT.
[2019-05-11 16:00] VITALS: BP 116/65
--- NOTE | 2019-05-11 16:00 | NUR ---
PT IS TALKING ON THE PHONE, VSS, NO S/S OF DISTRESS, PM CARE AND F/C CARE PROVIDED, C/O LOWER BACK PAIN WHEN CHANGE OF POSITION.
--- NOTE | 2019-05-11 18:40 | NUR ---
TRANSFERRED PT TO TELEMETRY ROOM 105B VIA BED, REPORT GIVEN TO KAYLA OLIVER AT BEDSIDE, PT IS IN STABLE CONDITION AT THIS TIME. ALL BELONGS GOES WITH PT. NO INCIDENT OCCUR.
--- NOTE | 2019-05-11 18:41 | NUR ---
RECEIVED BEDSIDE TRANSFER REPORT FROM ICU NURSE AMELIE. PATIENT IS A/O X4 AND WAS ABLE TO TRANSFER FROM BED TO BED WITH 2 PERSON ASSIST. VITAL SIGNS ARE STABLE AND NO SIGNS OF DISTRESS NOTED AT THIS TIME. PATIENT CAME WITH ROLLE CATHETER IN PLACE AND ON NASAL CANNULA WITH PORTABLE OXYGEN TANK. PATIENT'S NASAL CANNULA IS NOW CONNECTED TO ROOM OXYGEN SOURCE AT 2L/MIN, AND D5 1/2NS IS NOW INFUSING AT 60ML/H ON RIGHT FOREARM 22 GAUGE SITE. SKIN IS WARM, DRY AND INTACT EXCEPT FOR INCONTINENT DERMATITIS. BED IN LOW POSITION AND CALL LIGHT WITHIN REACH.
--- NOTE | 2019-05-11 19:19 | NUR ---
GAVE CHANGE OF SHIFT BEDSIDE REPORT TO PM NURSE. PATIENT'S VITALS ARE STABLE AND NO SIGNS OF DISTRESS AT THIS TIME ARE NOTED.
--- NOTE | 2019-05-11 19:20 | NUR ---
RECEIVED BEDSIDE REPORT FROM DAY SHIFT NURSEANAMARIA. PATIENT IS A/O X4 AND NO S/S OF SOB WITH O2 2LPM VIA NC.PATIENT WITH ROLLE CATHETER IN PLACE. IV SITE ON RFA, 22G, PATENT, INTACT, AND ASYMPTOMATIC, RUNNING D5 1/2NS IS NOW INFUSING AT 60ML/H. SKIN IS WARM, DRY AND INTACT EXCEPT FOR INCONTINENT DERMATITIS. BED IN LOW POSITION AND CALL LIGHT WITHIN REACH.
[2019-05-11 20:00] VITALS: BP 115/67
--- NOTE | 2019-05-11 20:37 | NUR ---
PT C/O 10/ BACK PAIN, GIVEN MORPHINE MD ORDERED. GIVEN HEPARIN MD ORDERED. PT TOLERATED WELL.
[2019-05-11] MEDS ORDERED: busPIRone 5 MG TAB PO SCH (21:00)
--- NOTE | 2019-05-11 22:45 | NUR ---
PT SLEEPING IN BED COMFORTABLY. NO ACUTE DISTRESS NOTED. WILL CONTINUE TO MONITOR.
[2019-05-12] VITALS: BP 125/76
--- NOTE | 2019-05-12 01:01 | NUR ---
PT SLEEPING IN BED. NO ACUTE DISTRESS NOTED.
[2019-05-12] MEDS: MORPHINE SULFATE 2 MG/ML SYR IVP PRN ×4 (03:32→23:27)
--- NOTE | 2019-05-12 03:32 | NUR ---
PT C/O 9/10 BACK PAIN, GIVEN MORPHINE MD ORDERED. PT TOLERATED WELL. WILL CONTINUE TO MONITOR.
[2019-05-12 04:00] VITALS: BP 116/62
[2019-05-12] MEDS: BLOOD GLUCOSE MONITORING 1 DEV DEV FS SCH ×4 (05:40→22:44)
--- NOTE | 2019-05-12 05:51 | NUR ---
BS CHECKED, 91. NO INSULIN COVERAGE NEEDED. 0.5*0.2 SUPERFICIAL OPEN WOUND FOUND IN LEFT HEAL. CLEANSE WITH NS, PAT DRY. APPLIED DRESSING AND ELEVATED LEG ON PILLOW TO HAVE HEEL NOT TOUCH ON BED. PT TOLERATED WELL.
--- NOTE | 2019-05-12 06:30 | NUR ---
PT SLEEPING IN BED COMFORTABLY. NO S/S OF SOB NOTED. BED IN LOW POSITION.
--- NOTE | 2019-05-12 07:10 | NUR ---
RECEIVED ENDORSEMENT FROM CNC LATHE MACHINE OPERATOR NURSE. PATIENT IS AAOX4, GERMAN SPEAKING. RESPIRATIONS ARE EVEN AND UNLABORED ON 2L NC. PATIENT DENIES ANY PAIN AT THIS TIME. RIGHT IJ KIP CATH NOTED AND INTACT. FC DRAINING CLEAR YELLOW URINE. RIGHT FA 22G IV INTACT, PATENT, AND INFUSING IVF. PLAN OF CARE WAS REVIEWED WITH PATIENT, PATIENT VERBALIZED UNDERSTANDING. SAFETY MEASURES IN PLACE, CALL LIGHT WITHIN REACH.
[2019-05-12 07:42] LABS: BASOPHILS % (AUTO) 0.3 % (0.0-2.0); EOSINOPHILS # (AUTO) 0.1 K/uL (0-0.4); EOSINOPHILS % (AUTO) 1.8 % (0.0-4.0); HEMATOCRIT 26.5 % (36-48); HEMOGLOBIN 8.3 g/dL (12.0-16.0); LYMPHOCYTES # (AUTO) 1.1 K/uL (2.5-16.5); LYMPHOCYTES % (AUTO) 15.4 % (20.5-51.1); MEAN CORPUSCULAR HEMOGLOBIN 27 pg (27-31); MEAN CORPUSCULAR HGB CONC 31 g/dL (33-37); MEAN CORPUSCULAR VOLUME 86.3 fL (80-94); MONOCYTES # (AUTO) 0.8 K/uL (0.8-1.0); MONOCYTES % (AUTO) 11.3 % (1.7-9.3); NEUTROPHILS % (AUTO) 71.2 % (42.2-75.2); PLATELET COUNT (AUTO) 166 K/uL (140-450); RED BLOOD CELL COUNT(AUTO) 3.07 MIL/uL (4.20-5.40); RED CELL DISTRIBUTION WIDTH 17.1 % (11.6-13.7)
[2019-05-12 07:57] LABS: ANION GAP 10.3 (8-16); CARBON DIOXIDE 32.4 mmol/L (21-32); CREATININE 1.3 mg/dL (0.6-1.3); POTASSIUM 3.7 mmol/L (3.5-5.1)
[2019-05-12 08:00] VITALS: BP 128/64
[2019-05-12 08:04] LABS: MAGNESIUM 1.2 mg/dL (1.8-2.4); PHOSPHORUS 1.9 mg/dL (2.5-4.9)
[2019-05-12] MEDS: SERTRALINE 50 MG TAB PO SCH (08:54)
[2019-05-12] MEDS: LACTOBACILLUS RHAMNOSUS GG 1 EACH CAP PO SCH (08:55)
[2019-05-12] MEDS: PANTOPRAZOLE 40 MG INJ VIAL IVP SCH (08:56)
[2019-05-12] MEDS ORDERED: busPIRone 5 MG TAB PO SCH (09:00)
[2019-05-12] MEDS: Z-GUARD PASTE TP SCH (09:01)
--- NOTE | 2019-05-12 09:01 | NUR ---
ADMINISTERED SCHEDULED MEDICATIONS. PATIENT TOLERATED WELL. PATIENT DENIES ANY PAIN. NO OTHER NEEDS AT THIS TIME, WILL CONTINUE TO MONITOR.
[2019-05-12] MEDS ORDERED: MAG SULF 2000 MG/WATER PREMIX 100 ML IV SCH (09:15)
[2019-05-12] MEDS ORDERED: SODIUM PHOS / POTASSIUM PHOS 1 PKT PDR PO SCH (09:24)
--- NOTE | 2019-05-12 09:50 | NUR ---
ADMINISTERED SCHEDULED MEDICATIONS. PATIENT TOLERATED WELL. NO OTHER NEEDS AT THIS TIME. WILL CONTINUE TO MONITOR.
--- NOTE | 2019-05-12 11:15 | NUR ---
PROVIDED PATIENT WITH COMMODE. PATIENT DENIES ANY PAIN. NO OTHER NEEDS AT THIS TIME, WILL CONTINUE TO MONITOR.
[2019-05-12] MEDS ORDERED: MAG SULF 2000 MG/WATER PREMIX 50 ML IV SCH ×2 (12:00)
--- NOTE | 2019-05-12 12:21 | NUR ---
ADMINISTERED SCHEDULED MEDICATIONS. PATIENT REFUSED OTHER MED, STATED IT TASTED BAD. PATIENT DENIES ANY PAIN AT THIS TIME, NO OTHER NEEDS AT THIS TIME, WILL CONTINUE TO MONITOR.
[2019-05-12] MEDS: SODIUM PHOS / POTASSIUM PHOS 1 PKT PDR PO SCH ×3 (13:00→23:18)
--- NOTE | 2019-05-12 13:15 | NUR ---
REMOVED KIP CATH, CANNULA INTACT. REMOVED ROLLE CATHETER, BALLOON INTACT. PATIENT TOLERATED WELL. MINIMAL BLEEDING. PATIENT DENIES ANY PAIN. NO OTHER NEEDS AT THIS TIME. WILL CONTINUE TO MONITOR.
--- NOTE | 2019-05-12 14:27 | NUR ---
Clinical information faxed to [facility] at [phone]. spoke to patient and wants to go to [facility]. [facility] made aware.
--- NOTE | 2019-05-12 14:36 | NUR ---
05/12/19 RD FOLLOW UP COMPLETED PLEASE REFER TO NUTRITION ASSESSMENT UNDER CARE ACTIVITY FOR ESTIMATED NUTRITIONAL NEEDS. 1. RECOMMEND GLUCERNA BID 2. CONTINUE CCHO, RENAL MECHANICAL SOFT DIET TOLERATED 3. RD TO FOLLOW-UP 3-5 DAYS, MODERATE RISK CARLYLE ZAPIEN, RD
[2019-05-12] MEDS: NACL 0.9% 1,000 ML IV SCH (14:39)
--- NOTE | 2019-05-12 15:44 | NUR ---
spoke to her Son Will and got the update.
--- NOTE | 2019-05-12 15:45 | NUR ---
PATIENTS SON IS AT BEDSIDE. COMPLIANCE ANALYST WAS CONTACTED TO SPEAK WITH PATIENT AND SON. RESIDENT WAS ALSO CONTACTED TO SPEAK WITH PATIENT AND SON. NO OTHER NEEDS AT THIS TIME. WILL CONTINUE TO MONITOR.
[2019-05-12 16:00] VITALS: BP 114/71
--- NOTE | 2019-05-12 16:14 | NUR ---
ADMINISTERED SCHEDULED MEDICATIONS. PATIENT TOLERATED WELL. NO OTHER NEEDS AT THIS TIME, WILL CONTINUE TO MONITOR.
--- NOTE | 2019-05-12 17:00 | NUR ---
OBTAINED PHOTO OF WOUND. PATIENT STATED IT WAS PRESENT UPON ADMISSION. NO OTHER NEEDS AT THIS TIME, WILL CONTINUE TO MONITOR.
--- NOTE | 2019-05-12 17:19 | NUR ---
[facility] will not accept. Spoke to Geovanna foster care case manager [phone] and was informed and she said will work on the bed with [facility] tomorrow, Will is willing to pay for transportation to [facility]. call Geovanna at [phone] to get the bed at [facility].
--- NOTE | 2019-05-12 17:30 | NUR ---
USED PICC TO OBTAIN BLOOD SAMPLE. PATIENT TOLERATED WELL. NO OTHER NEEDS AT THIS TIME. WILL CONTINUE TO MONITOR. Addendum: 05/12/19 at 1800 by Kaylyn Rolle RN WRONG PATIENT.
--- NOTE | 2019-05-12 19:21 | NUR ---
ENDORSED TO CLINICAL CARE MANAGER NURSE FOR CONTINUITY OF CARE. PATIENT IS STABLE AT THIS TIME.
--- NOTE | 2019-05-12 19:21 | NUR ---
RECEIVED PATIENT REPORT AT BEDSIDE. PATIENT IS AWAKE, ALERT AND ORIENTED. PT ON ROOM AIR. NO SOB OR S/S OF DISTRESS . NO C/O PAIN AT THIS TIME. BED LOWERED WITH CALL LIGHT WITHIN REACH. WILL CONTINUE TO MONITOR
[2019-05-12] MEDS ORDERED: AMITRIPTYLINE 10 MG TAB PO SCH (21:00)
--- NOTE | 2019-05-12 21:00 | NUR ---
PATIENT AMBULATED TO THE BATHROOM. PT HAD A BM AND VOIDED
--- NOTE | 2019-05-13 02:53 | NUR ---
PT ASLEEP IN BED. NO S/S OF DISTRESS NOTED
[2019-05-13 06:35] VITALS: BP 122/50
[2019-05-13] MEDS: NACL 0.9% 1,000 ML IV SCH (06:56)
--- NOTE | 2019-05-13 07:05 | NUR ---
RECEIVED BEDSIDE REPORT FROM KAYLA LAWRENCE. PT STABLE, SLEEPING, BUT EASILY AROUSABLE. NO SIGNS OF DISTRESS NOTED. NO REDNESS, SWELLING, OR INFLAMMATION NOTED ON IV SITE. CALL MONIQUE WITHIN REACH. BED IN LOWEST POSITION. SAFETY MEASURES IN PLACE. PLAN OF CARE REVIEWED.
[2019-05-13] MEDS: BLOOD GLUCOSE MONITORING 1 DEV DEV FS SCH ×2 (07:38→11:35)
[2019-05-13 08:00] VITALS: BP 141/62
[2019-05-13] MEDS ORDERED: GLUC-805 FS (08:30)
[2019-05-13] MEDS ORDERED: LACT10CA PO ×2 (08:30→11:56)
[2019-05-13] MEDS ORDERED: ELA10 PO (08:30)
[2019-05-13] MEDS ORDERED: D50SYR IVP (08:30)
[2019-05-13] MEDS ORDERED: HUMSLIDE SUBQ (08:30)
[2019-05-13] MEDS ORDERED: ZGUARD TP ×2 (08:30)
[2019-05-13] MEDS ORDERED: CEFT1VIA7 IV ×2 (08:31→11:56)
[2019-05-13] MEDS ORDERED: MAG SULF 2000 MG/WATER PREMIX 50 ML IV ONE (09:00)
[2019-05-13 09:02] LABS: ANION GAP 9.3 (8-16); CARBON DIOXIDE 32.4 mmol/L (21-32); CREATININE 1.3 mg/dL (0.6-1.3); POTASSIUM 3.7 mmol/L (3.5-5.1)
[2019-05-13 09:10] LABS: HEMATOCRIT 27.9 % (36-48); HEMOGLOBIN 8.8 g/dL (12.0-16.0); MEAN CORPUSCULAR HEMOGLOBIN 27 pg (27-31); MEAN CORPUSCULAR HGB CONC 32 g/dL (33-37); MEAN CORPUSCULAR VOLUME 86.1 fL (80-94); PLATELET COUNT (AUTO) 184 K/uL (140-450); RED BLOOD CELL COUNT(AUTO) 3.24 MIL/uL (4.20-5.40); RED CELL DISTRIBUTION WIDTH 17.2 % (11.6-13.7); WHITE BLOOD COUNT (AUTO) 8.4 K/uL (4.8-10.8)
[2019-05-13 09:38] LABS: MAGNESIUM 1.5 mg/dL (1.8-2.4); PHOSPHORUS 2.4 mg/dL (2.5-4.9)
[2019-05-13 09:40] LABS: LYMPHOCYTES % (MANUAL) 29 % (20-46)
[2019-05-13 09:41] LABS: EOSINOPHILS % (MANUAL) 2 % (0-4); MONOCYTES % (MANUAL) 11 % (5-12)
[2019-05-13] MEDS: LACTOBACILLUS RHAMNOSUS GG 1 EACH CAP PO SCH (09:48)
[2019-05-13] MEDS: PANTOPRAZOLE 40 MG INJ VIAL IVP SCH (09:48)
[2019-05-13] MEDS: SERTRALINE 50 MG TAB PO SCH (09:48)
[2019-05-13] MEDS: Z-GUARD PASTE TP SCH (09:49)
[2019-05-13] MEDS: MORPHINE SULFATE 2 MG/ML SYR IVP PRN ×2 (09:51→14:39)
--- NOTE | 2019-05-13 09:58 | NUR ---
ADMINISTERED SCHEDULED MEDICATIONS AND PRN MORPHINE FOR 7/10 BACK PAIN. PT TOLERATED WELL. WILL CONTINUE TO MONITOR.
--- NOTE | 2019-05-13 11:20 | NUR ---
CALLED SLIM HINOJOSA TO CHECK ON STATUS OF BED AT [facility], SHE WILL CALL ME BACK TO INFORM IF THEY HAVE A FEMALE BED.
--- NOTE | 2019-05-13 11:20 | NUR ---
PT REPOSITIONED, LINENS AND GOWN CHANGED. PT HAD BM ON BEDSIDE COMMODE.
--- NOTE | 2019-05-13 11:58 | NUR ---
Import Customs Clearing Agent Note: I called and spoke with Mechanical Cad Drafter Geovanna from [facility] , she stated she will call me back once [facility] provides her with a room number. She told me if [facility] is not able to accept patient today, she will contact other snfs today.
--- NOTE | 2019-05-13 12:50 | NUR ---
WOUND ASSESSMENT AND WOUND CARE PROVIDED. PT TOLERATED WELL. DISCHARGE PICTURES TAKEN.
--- NOTE | 2019-05-13 13:15 | NUR ---
PT ACCIDENTALLY PULLED OUT IV ON RIGHT FA. REINSERTED ANOTHER IV ON LEFT FA 22G. PT TOLERATED WELL. LINE IS FLUSHED, PATENT, AND ASYMPTOMATIC.
--- NOTE | 2019-05-13 13:40 | NUR ---
MADE DR ALVARADO AWARE OF MAGNESIUM LEVEL 1.5. MD WILL PUT IN NEW ORDERS.
[2019-05-13] MEDS ORDERED: MAG SULF 2000 MG/WATER PREMIX 100 ML IV SCH (14:00)
[2019-05-13] MEDS: SODIUM PHOS / POTASSIUM PHOS 1 PKT PDR PO SCH ×2 (14:00→14:34)
--- NOTE | 2019-05-13 14:13 | NUR ---
RECEIVED CALL FROM [facility] PT ACCEPTED AT [facility] ROOM 205A, CALL REPORT TO [phone], CALL [facility] FOR PHILOSOPHY FACULTY MEMBER, AUTHORIZED BY MAN[facility] AT [facility].
--- NOTE | 2019-05-13 14:17 | NUR ---
Manager Registration Note: Per Desktop Engineer Geovanna from [facility] , patient has been accepted at [facility] , room 205 A, accepting MD is . She stated patient's son Will is aware patient has been accepted at [facility].
--- NOTE | 2019-05-13 14:21 | NUR ---
MECHANICAL SPREADER OPERATOR AT 4PM FOR TRANSFER TO [facility]IA [facility]) [phone].
--- NOTE | 2019-05-13 14:35 | NUR ---
ADMINISTERED SCHEDULED MAGNESIUM AND PRN MORPHINE FOR 7/10 BACK PAIN AND PRN ZOFRAN FOR C/O NAUSEA. PT TOLERATED WELL. WILL CONTINUE TO MONITOR.
--- NOTE | 2019-05-13 15:26 | NUR ---
GAVE REPORT TO KAYLA MYLES FROM [facility].
[2019-05-13 16:00] VITALS: BP 118/71
--- NOTE | 2019-05-13 16:20 | NUR ---
D/C INSTRUCTIONS AND PAPERWORK GIVEN. PT VERBALIZED UNDERSTANDING. QUESTIONS AND CONCERNS WERE ADDRESSED. IV LINE KEPT INTACT FOR FURTHER IV ANTIBIOTIC THERAPY AT [facility]. PT STABLE, AAOX3, NO SIGNS OF DISTRESS NOTED. PT COMMUNICATES EFFICIENTLY WITH STAFF. CALLED PT'S SON PJ TO INFORM REGARDING PT'S TRANSFER TO [facility] TODAY. DISCHARGE PHOTOGRAPHS TAKEN, PT REFUSED PNEUMONIA VACCINE, FLU VACCINE NOT IN SE[place]ON. PT HAS ALL OF BELONGINGS. PT PICKED UP BY [facility] TO BE TAKEN TO [facility].
== END 2019-05-13 16:20 | DRG 682 ==
LOC: MED 11:14 → MIC 14:47 → MTU 05-11 18:24
PROVIDERS: ADMIT General Practice; ATTEND General Practice
PROC: 02HV33Z Insertion of Infusion Device into Superior Vena Cava, Percutaneous Approach (ICD-10-PCS; principal; 2019-05-09)
PROC: B548ZZA Ultrasonography of Superior Vena Cava, Guidance (ICD-10-PCS; 2019-05-09)
PROC: 5A1D70Z Performance of Urinary Filtration, Intermittent, Less than 6 Hours Per Day (ICD-10-PCS; 2019-05-09)
PROC: 5A1D70Z Performance of Urinary Filtration, Intermittent, Less than 6 Hours Per Day (ICD-10-PCS; 2019-05-10)
DX: N17.0 Acute kidney failure with tubular necrosis (principal); K85.90 Acute pancreatitis without necrosis or infection, unspecified; G93.41 Metabolic encephalopathy; E43 Unspecified severe protein-calorie malnutrition; J96.00 Acute respiratory failure, unspecified whether with hypoxia or hypercapnia; Z68.43 Body mass index [BMI] 50.0-59.9, adult; E87.2 Acidosis; N39.0 Urinary tract infection, site not specified; R57.9 Shock, unspecified; I13.2 Hypertensive heart and chronic kidney disease with heart failure and with stage 5 chronic kidney disease, or end stage renal disease; M62.82 Rhabdomyolysis; N18.6 End stage renal disease; E66.01 Morbid (severe) obesity due to excess calories; D63.8 Anemia in other chronic diseases classified elsewhere; E11.9 Type 2 diabetes mellitus without complications; F17.201 Nicotine dependence, unspecified, in remission; F31.9 Bipolar disorder, unspecified; F41.9 Anxiety disorder, unspecified; I50.9 Heart failure, unspecified; J44.9 Chronic obstructive pulmonary disease, unspecified; L30.9 Dermatitis, unspecified; M19.90 Unspecified osteoarthritis, unspecified site; Z82.5 Family history of asthma and other chronic lower respiratory diseases; Z88.6 Allergy status to analgesic agent; Z90.710 Acquired absence of both cervix and uterus; Z91.19 Patient's noncompliance with other medical treatment and regimen; Z99.2 Dependence on renal dialysis; Z88.8 Allergy status to other drugs, medicaments and biological substances; F20.9 Schizophrenia, unspecified; E86.0 Dehydration; E83.41 Hypermagnesemia; E83.39 Other disorders of phosphorus metabolism; B96.1 Klebsiella pneumoniae [K. pneumoniae] as the cause of diseases classified elsewhere
CPT/HCPCS: 36415; 36600; 70450; 71045; 80048; 80053; 80305; 81001; 82140; 82150; 82550; 82553; 82803; 82948; 83036; 83605; 83615; 83690; 83735; 83880; 84100; 84134; 84436; 84443; 84484; 85025; 85610; 85730; 86704; 86706; 86708; 86709; 86803; 87040; 87081; 87086; 87186; 87340; 92610; 93005; 93925; 93970; 94640; 96365; 96372; 96375; 97110; 97116; 97161-GP; 97530; 99291; C9113; J0696; J1642; J1644; J1815; J2060; J2270; J2405; J2997; J3475; J3490; J7030; J7060; J7613; Q0092

== ENCOUNTER 2019-08-13 00:14 | Inpatient (IN) | payer OTHER ==
[~2019-08-13] VITALS: Ht 162.6 cm; Wt 136.1 kg
[2019-08-13 00:14] VITALS: BP 86/44
[~2019-08-13 00:14] MED LIST: ALPR0.5T2 PO; ATOR40TA PO; CEFT1VIA7 IV; D50SYR IVP; ELA10 PO; GLUC-805 FS; HUMSLIDE SUBQ; LACT10CA PO; MAGN241.1 PO; SERT100T PO; ZGUARD TP
--- NOTE | 2019-08-13 00:14 | NUR ---
PT TO BED #9
--- NOTE | 2019-08-13 00:35 | NUR ---
58 YO F BIBA FROM HOME; APARTMENT COMPLEX. PER EMS, PT HAD VISIT FROM HOME HEALTH NURSE WHO DISCOVERED PT WAS HYPOTENSIVE WHILE CHECKING V/S; 86/43. PT ARIVES AWAKE, A/O X 4. PT REPORTS FEELING DIZZY, LIGHT HEADED WITH GENERALIZED WEAKNESS X STARTING X 1 DAY. PT DENIES FEVER, NVD, SOB, CP. PT STATES SHE HAS HAD HYPOTENSIVE EPISODES IN PAST. -- PT AWAKE, A/O X 4. BEHAVIOR AGE APPROPRIATE. ANSWERS QUESTIONS IN FULL SENTENCES. PT CAN BE DIFFICULT TO UNDERSTAND; PT HAS NO TEETH. PT IS POOR HISTORIAN AT TIMES; RAMBLES OFF TOPIC. REQUIRES REDIRECTION. -- SKIN APPROPRIATE FOR ETHNICITY, WARM, DRY. BREATHING EVEN, UNLABORED. EQUAL HAND GUNNER'S MATE WITH MILD WEAKNESS NOTED TO UPPER EXTREMETIES. -- PT IS ABLE TO AMBULATE WITH ASSIST. PMH-- DM, HTN, ARTHRITIS, CHRONIC BACK PAIN, DEPRESSION
--- NOTE | 2019-08-13 00:51 | NUR ---
DR. CONLEY EVALUATING AT BEDSIDE.
[2019-08-13] MEDS ORDERED: NACL 0.9% 2,000 ML IV ONE (00:56)
[2019-08-13] MEDS ORDERED: PIPERACILLIN/TAZOBACTAM 3.375 GM in DEXTROSE 5% 50 ML IV ONE (01:00)
[2019-08-13] MEDS ORDERED: NACL 0.9% 2,500 ML IV ONE (01:00)
[2019-08-13] MEDS ORDERED: PIPERACILLIN/TAZOBACTAM 3.375 GM VIAL IV ONE (01:07)
--- NOTE | 2019-08-13 01:24 | NUR ---
PHLEB AT BEDSIDE FOR LABS.
--- NOTE | 2019-08-13 02:00 | NUR ---
PT REFUSED STRAIGHT CATH AT THIS TIME, UNABLE TO URINATE
--- NOTE | 2019-08-13 02:06 | NUR ---
RN AND PHLEB AT BEDSIDE TRYING TO DRAW BLOOD. PT IS DIFFICULT STICK.
[2019-08-13] MEDS ORDERED: fentaNYL 0.05 MG/ML VIAL IVP ONE (02:25)
[2019-08-13 02:44] LABS: BASOPHILS % (AUTO) 0.4 % (0.0-2.0); EOSINOPHILS # (AUTO) 0.2 K/uL (0-0.4); HEMOGLOBIN 9.6 g/dL (12.0-16.0); MEAN CORPUSCULAR HGB CONC 30 g/dL (33-37)
--- NOTE | 2019-08-13 02:55 | NUR ---
PT RETURNED FROM CT VIA WC.
[2019-08-13 02:56] LABS: EOSINOPHILS % (AUTO) 1.6 % (0.0-4.0); HEMATOCRIT 31.7 % (36-48); LYMPHOCYTES # (AUTO) 2.3 K/uL (2.5-16.5); LYMPHOCYTES % (AUTO) 19.2 % (20.5-51.1); MEAN CORPUSCULAR HEMOGLOBIN 27 pg (27-31); MEAN CORPUSCULAR VOLUME 88.5 fL (80-94); MONOCYTES # (AUTO) 0.8 K/uL (0.8-1.0); MONOCYTES % (AUTO) 6.6 % (1.7-9.3); NEUTROPHILS # (AUTO) 8.6 K/uL (1.8-7.7); NEUTROPHILS % (AUTO) 72.2 % (42.2-75.2); PLATELET COUNT (AUTO) 238 K/uL (140-450); PROTHROMBIN TIME 9.9 secs (10.8-13.4); RED BLOOD CELL COUNT(AUTO) 3.58 MIL/uL (4.20-5.40); RED CELL DISTRIBUTION WIDTH 16.5 % (11.6-13.7); WHITE BLOOD COUNT (AUTO) 11.9 K/uL (4.8-10.8)
[2019-08-13 02:59] LABS: ALBUMIN 3.6 g/dL (3.4-5.0); ANION GAP 16.8 (8-16); CARBON DIOXIDE 24.3 mmol/L (21-32); TOTAL BILIRUBIN 0.2 mg/dL (0.0-1.0)
[2019-08-13 03:07] LABS: POTASSIUM 6.1 mmol/L (3.5-5.1)
[2019-08-13 03:08] LABS: CREATININE 4.1 mg/dL (0.6-1.3)
--- NOTE | 2019-08-13 03:10 | NUR ---
PT TAKEN TO RR VIA WC. PT AMBULATES TO TOILET FROM WC WITH STEADY GAIT. PT PLACED ON TOILET FOR URINE SAMPLE.
--- NOTE | 2019-08-13 03:30 | NUR ---
PT'S PIV'S INFILTRATING MULTIPLE TIMES. DR. CONLEY MADE AWARE.
[2019-08-13 03:42] LABS: PHOSPHORUS 5.2 mg/dL (2.5-4.9)
--- NOTE | 2019-08-13 04:09 | NUR ---
DR. CONLEY AT BEDSIDE TO ATTEMPT US GUIDED IV.
--- NOTE | 2019-08-13 04:30 | NUR ---
# 16 FR catheter utilizing sterile technique. Immediate return of 50 ml cloudy, yellow urine noted. Urine sample collected and sent to lab. Pt tolerated procedure well.
[2019-08-13] MEDS ORDERED: SODIUM ZIRCONIUM CYCLOSILICATE 10 GM POWD.PACK PO ONE (04:35)
[2019-08-13 04:38] LABS: APPEARANCE,URINE CLOUDY (CLEAR); BILIRUBIN,URINE NEGATIVE (NEGATIVE); BLOOD, URINE NEGATIVE (NEGATIVE); COLOR,URINE YELLOW (YELLOW); LEUKOCYTE ESTERASE ,URINE 2+ (NEGATIVE); NITRITE, URINE NEGATIVE (NEGATIVE); UGLUCOSE NEGATIVE (NEGATIVE)
[2019-08-13 04:59] LABS: RBC,URINE 0-5 /HPF (0-5); WBC,URINE TOO MANY TO COUNT /HPF (0-5)
--- NOTE | 2019-08-13 05:00 | NUR ---
PT RESTING COMFORTABLY IN BED. BREATHING EVEN, UNLABORED. PT DENIES PAIN/DISCOMFORT AT THIS TIME. PT IS REQUESTING FOOD. SANDWICH PROVIDED.
[2019-08-13] MEDS ORDERED: ACETAMINOPHEN 325 MG TAB PO PRN (05:40)
[2019-08-13] MEDS ORDERED: ONDANSETRON 4 MG/2 ML VIAL IM/IVP PRN (05:40)
[2019-08-13] MEDS ORDERED: HYDROcodone/APAP 7.5/325 MG 1 TAB PO PRN (05:40)
[2019-08-13] MEDS ORDERED: MORPHINE SULFATE 2 MG/ML SYR IVP PRN (05:40)
[2019-08-13] MEDS ORDERED: NACL 0.9% 1,000 ML IV ONE ×2 (05:45→10:05)
--- NOTE | 2019-08-13 06:00 | NUR ---
PT C/O 05/13 LOWER BACK PAIN. PT MEDICATED WITH NORCO. WILL CONTINUE TO MONITOR.
[2019-08-13] MEDS ORDERED: SODIUM POLYSTYRENE 15 GM/60 ML UDBTL PO SCH (07:15)
[2019-08-13] MEDS ORDERED: CALCIUM CHLORIDE 10% 1,000 MG in NACL 0.9% 100 ML IV SCH (07:15)
--- NOTE | 2019-08-13 07:20 | NUR ---
Patient will be admitted to care of DR. JOHNSON. Admited to TELEMETRY. Will go to room 107B. Belongings list completed. Report to ASHLEY GARZA.
[2019-08-13] MEDS ORDERED: INSULIN REGULAR, HUMAN 100 UNIT/ML VIAL IVP SCH (07:30)
[2019-08-13] MEDS ORDERED: DEXTROSE 50% 50 ML SYR IVP SCH (07:30)
--- NOTE | 2019-08-13 07:36 | NUR ---
PATIENT ARRIVED UNIT VIA GURNEY ACCOMPANIED BY ER NURSE LYNDSEY. ASSISTED TO TRANSFER PATIENT AND POSITION PATIENT COMFORTABLY ON BED. PATIENT IS AAOX4. RESPIRATION EVEN AND UNLABORED ON RA. DENIED PAIN, SOB, AND DIZZINESS. NO SIGNS OF DISTRESS NOTED. IV ON LEJ 18G, CLEAN AND INTACT, INFUSING PER MD ORDER. 24G ON L WRIST, CLEAN AND INTACT, SL. PATIENT IS CONTINENT AND ABLE TO AMBULATE TO THE BATHROOM WITH ASSIST DUE TO WEAKNESS. ORIENTED PATIENT TO HER ROOM, DEMONSTRATED TO PATIENT HOW TO USE THE CALL LIGHT, TV, BED REMOTE, LIGHT AND BATHROOM, PATIENT VERBALIZED UNDERSTANDING. APPLIED TELE MONITOR. MRSA NARES COLLECTED, VITAL SIGNS TAKEN. APPLIED ALLERGIC WRIST BAND. SAFETY MEASURES IN PLACE. BED IN LOW POSITION AND CALL LIGHT WITHIN REACH. INSTRUCTED PATIENT TO USE THE CALL LIGHT FOR ANY ASSISTANCE AND PATIENT WAS AWARE.
[2019-08-13 07:40] LABS: BARBITURATE, URINE POS. ng/ml (NEG <=200); BENZODIAZEPINE, URINE NEG. ng/mL (NEG <=200); CANNABINOID, URINE NEG. ng/mL (NEG <=50); COCAINE, URINE NEG. ng/mL (NEG <=300); OPIATE, URINE NEG. ng/mL (NEG <=2000); PHENCYCLIDINE SCREEN,URINE NEG. ng/mL (NEG <=25)
[2019-08-13 07:51] LABS: CHOL/HDL RATIO 5.8 (1-4.5); FREE T4 (FREE THYROXINE) 0.56 ng/dL (0.76-1.46); THYROID STIMULATING HORMONE 2.2 uIU/mL (0.34-3.74)
[2019-08-13] MEDS ORDERED: ASPI-1718 PO (07:53)
[2019-08-13] MEDS ORDERED: LISI2.5T12 PO (07:54)
[2019-08-13] MEDS ORDERED: ACET-5629 PO (07:54)
[2019-08-13 08:00] VITALS: BP 93/45
[2019-08-13] MEDS: NACL 0.9% 1,000 ML IV SCH (08:14)
--- NOTE | 2019-08-13 09:04 | NUR ---
DR ADVIDSON IS TALKING TO PATIENT AT BEDSIDE. NO SIGNS OF DISTRESS NOTED. SAFETY MEASURES IN PLACE.
[2019-08-13] MEDS ORDERED: LISI30TA6 PO (10:17)
[2019-08-13] MEDS: CALCIUM ACETATE 667 MG TAB PO SCH (10:18)
[2019-08-13] MEDS: LACTOBACILLUS RHAMNOSUS GG 1 EACH CAP PO SCH (10:18)
--- NOTE | 2019-08-13 10:19 | NUR ---
ADMINISTERED MEDS PER MD ORDER, PATIENT TOLERATED WELL. MEDS EDUCATION PROVIDED TO PATIENT AND PATIENT VERBALIZED UDNERSTANDING. UNABLE TO SCAN INSULIN R, NOTIFIED PHARMACY AND PER PHARMACY, THEY WILL SEND A NEW LABEL BATSHEVA. PATIENT IS AWAKE AND RESTING ON BED AT THIS TIME. NO SIGNS OF DISTRESS NOTED. SAFETY MEASURES IN PLACE.
[2019-08-13] MEDS ORDERED: ASPIRIN 81 MG TAB.CHEW PO SCH (10:24)
[2019-08-13] MEDS ORDERED: SERTRALINE 50 MG TAB PO SCH (10:28)
--- NOTE | 2019-08-13 10:44 | NUR ---
ADMINISTERED MEDS PER MD ORDER, PATIENT TOLERATED WELL. MEDS EDUCATION PROVIDED TO PATIENT AND PATIENT VERBALIZED UNDERSTANDING. HUNG 1 BAG OF IVF 1000 ML WIDE OPEN PER MD ORDER. PATIENT IS AWAKE AND RESTING ON BED AT THIS TIME. NO SIGNS OF DISTRESS NOTED. TELE MONITOR ATTACHED. SAFETY MEASURES IN PLACE.
--- NOTE | 2019-08-13 11:37 | NUR ---
PATIENT AWAKE AND TALKING ON THE PHONE AT THIS TIME. DENIED PAIN, SOB, AND DIZZINESS. NO SIGNS OF DISTRESS NOTED. TELE MONITOR ATTACHED. FALL RISK PROTOCOL IN PLACE AND BED ALARM ACTIVATED. SAFETY MEASURES IN PLACE. BED IN LOW POSITION AND CALL LIGHT WITHIN REACH. INSTRUCTED PATIENT TO USE THE CALL LIGHT FOR ANY ASSISTANCE AND PATIENT WAS AWARE.
[2019-08-13 12:00] VITALS: BP 95/43
[2019-08-13] MEDS: oxyCODONE/APAP 5/325 MG 1 TAB TAB PO PRN (12:04)
--- NOTE | 2019-08-13 12:04 | NUR ---
ADMINISTERED MED VIA IVPB PER MD ORDER, PATIENT TOLERATED WELL. MED EDUCATION PROVIDED TO PATIENT AND PATIENT VERBALIZED OK. PATIENT COMPLAINED SHE 5/10 BACK PAIN, SHE FEELS RESTLESS AND PRESSURE. ADMINISTERED PRN PAIN MED, PATIENT TOLERATED WELL. PATIENT IS RESTING ON BED AT THIS TIME. NO SIGN OF DISTRESS NOTED.TELE MONITOR ATTACHED. FALL RISK PROTOCOL IN PLACE AND BED ALARM ACTIVATED. SAFETY MEASURES IN PLACE. BED IN LOW POSITION AND CALL LIGHT WITHIN REACH. INSTRUCTED PATIENT TO USE THE CALL LIGHT FOR ANY ASSISTANCE AND PATIENT WAS AWARE.
--- NOTE | 2019-08-13 12:30 | NUR ---
ASSISTED PATIENT TO USE THE BATHROOM AND BACK ON BED. COLLECTED URINE DIRECT VOID AND DELIVERED TO LAB. PATIENT IS HAVING LUNCH ON BED AT THIS TIME. NO SIGNS OF DISTRESS NOTED.TELE MONITOR ATTACHED. FALL RISK PROTOCOL IN PLACE AND BED ALARM ACTIVATED. SAFETY MEASURES IN PLACE. BED IN LOW POSITION AND CALL LIGHT WITHIN REACH. INSTRUCTED PATIENT TO USE THE CALL LIGHT FOR ANY ASSISTANCE AND PATIENT WAS AWARE.
[2019-08-13] MEDS ORDERED: INSULIN LISPRO SLIDING SCALE 100 UNITS/ML VIAL SUBQ PRN (12:35)
[2019-08-13] MEDS ORDERED: DEXTROSE 50% 50 ML SYR IVP PRN (12:35)
[2019-08-13 13:39] LABS: ANION GAP 15.4 (8-16); CARBON DIOXIDE 24.8 mmol/L (21-32); CREATININE 3.3 mg/dL (0.6-1.3); POTASSIUM 5.2 mmol/L (3.5-5.1)
--- NOTE | 2019-08-13 13:40 | NUR ---
ASSISTED PATIENT TO GO THE BATHROOM AND BACK ON BED. NO SIGNS OF DISTRESS NOTED. TELE MONITOR ATTACHED. FALL RISK PROTOCOL IN PLACE AND BED ALARM ACTIVATED. SAFETY MEASURES IN PLACE. BED IN LOW POSITION AND CALL LIGHT WITHIN REACH. INSTRUCTED PATIENT TO USE THE CALL LIGHT FOR ANY ASSISTANCE AND PATIENT WAS AWARE.
--- NOTE | 2019-08-13 14:29 | NUR ---
PATIENT IS TALKING TO SON ON THE PHONE. NO SIGNS OF DISTRESS NOTED. TELE MONITOR ATTACHED. FALL RISK PROTOCOL IN PLACE AND BED ALARM ACTIVATED. SAFETY MEASURES IN PLACE. BED IN LOW POSITION AND CALL LIGHT WITHIN REACH. INSTRUCTED PATIENT TO USE THE CALL LIGHT FOR ANY ASSISTANCE AND PATIENT WAS AWARE.
[2019-08-13] MEDS: MORPHINE SULFATE 4 MG/ML SYR IVP PRN ×3 (14:46→22:56)
--- NOTE | 2019-08-13 14:46 | NUR ---
PATIENT COMPLAINED SHE HAS 10/10 PAIN ON HER BACK, PATIENT SAID THE PATIENT IS SHARP, STABBING AND SHE FEELS RESTLESS. ADMINISTERED PRN PAIN MED VIA IVP, PATIENT TOLERATED WELL. MED EDUCATION PROVIDED TO PATIENT AND PATIENT SAID OK. TELE MONITOR ATTACHED. FALL RISK PROTOCOL IN PLACE AND BED ALARM ACTIVATED. SAFETY MEASURES IN PLACE. BED IN LOW POSITION AND CALL LIGHT WITHIN REACH. INSTRUCTED PATIENT TO USE THE CALL LIGHT FOR ANY ASSISTANCE AND PATIENT WAS AWARE.
[2019-08-13 16:00] VITALS: BP 109/53
[2019-08-13] MEDS: BLOOD GLUCOSE MONITORING 1 DEV DEV FS SCH ×2 (17:01→20:04)
--- NOTE | 2019-08-13 18:41 | NUR ---
PATIENT IS AWAKE AND RESTING ON BED AT THIS TIME. NO SIGNS OF DISTRESS NOTED. TELE MONITOR ATTACHED. SAFETY MEASURES IN PLACE. BED IN LOW POSITION AND CALL LIGHT WITHIN REACH. INSTRUCTED PATIENT TO USE THE CALL LIGHT FOR ANY ASSISTANCE AND PATIENT WAS AWARE.
--- NOTE | 2019-08-13 18:53 | NUR ---
PATIENT COMPLAINED SHE HAS 19/10 PAIN ON HER BACK AND HER R LEG,ADMINISTERED PRN PAIN MED VIA IVP, PATIENT TOLERATED WELL. MED EDUCATION PROVIDED TO PATIENT AND PATIENT VERBALIZED UNDERSTANDING.. TELE MONITOR ATTACHED. FALL RISK PROTOCOL IN PLACE AND BED ALARM ACTIVATED. SAFETY MEASURES IN PLACE. BED IN LOW POSITION AND CALL LIGHT WITHIN REACH. INSTRUCTED PATIENT TO USE THE CALL LIGHT FOR ANY ASSISTANCE AND PATIENT WAS AWARE.
--- NOTE | 2019-08-13 19:30 | NUR ---
ENDORSED PATIENT AT BEDSIDE TO MOUNTED POLICE NURSE FOR CONTINUITY OF CARE. PATIENT IS IN STABLE CONDITION. TELE MONITOR ATTACHED. SAFETY MEASURES IN PLACE.
--- NOTE | 2019-08-13 19:31 | NUR ---
RECEIVED ENDORSEMENT FROM AM SHIFT NURSE FOR CONTINUITY OF CARE. PATIENT ALERT AND ORIENTED X 4. NO APPARENT DISTRESS NOTED. IV ON LEFT IJ RUNNING IVF. NO INFILTRATION NOTED. SAFETY PRECAUTIONS IN PLACE. BED ALARM ON. BED IN LOW POSITION. WILL CONTINUE TO MONITOR.
[2019-08-13 20:00] VITALS: BP 105/60
--- NOTE | 2019-08-13 21:20 | NUR ---
PATIENT AWAKE IN BED, TALKING TO ROOMMATE. NO DISTRESS NOTED. WILL CONTINUE TO MONITOR.
--- NOTE | 2019-08-13 23:15 | NUR ---
PATIENT AWAKE IN BED. NO DISTRESS NOTED. VISIBLE CHEST RISE AND FALL. WILL CONTINUE TO MONITOR.
[2019-08-13 23:29] LABS: CHLORIDE,URINE RANDOM 61 mmol/L (110-250); CREATININE,URINE RANDOM 118 mg/dL (30-125)
[2019-08-14] VITALS: BP 107/48
--- NOTE | 2019-08-14 01:10 | NUR ---
PATIENT ASLEEP IN BED. NO DISTRESS NOTED. BED ON LOW POSITION. WILL CONTINUE TO MONITOR.
[2019-08-14] MEDS: MORPHINE SULFATE 4 MG/ML SYR IVP PRN ×4 (03:05→15:33)
--- NOTE | 2019-08-14 03:05 | NUR ---
ASSISTED PATIENT TO BATHROOM AND BACK TO BED. NO DISTRESS NOTED. WILL CONTINUE TO MONITOR.
[2019-08-14 04:00] VITALS: BP 96/58
--- NOTE | 2019-08-14 05:00 | NUR ---
PATIENT ASLEEP IN BED. NO DISTRESS NOTED. BED ON LOW POSITION. WILL CONTINUE TO MONITOR.
[2019-08-14] MEDS: BLOOD GLUCOSE MONITORING 1 DEV DEV FS SCH ×3 (05:39→17:17)
[2019-08-14 05:41] LABS: EOSINOPHILS # (AUTO) 0.2 K/uL (0-0.4); HEMOGLOBIN 9.3 g/dL (12.0-16.0); RED CELL DISTRIBUTION WIDTH 16.7 % (11.6-13.7)
[2019-08-14 05:52] LABS: BASOPHILS % (AUTO) 0.2 % (0.0-2.0); EOSINOPHILS % (AUTO) 2.9 % (0.0-4.0); LYMPHOCYTES % (AUTO) 30.6 % (20.5-51.1); MEAN CORPUSCULAR HEMOGLOBIN 27 pg (27-31); MEAN CORPUSCULAR HGB CONC 31 g/dL (33-37); MEAN CORPUSCULAR VOLUME 87.4 fL (80-94); MONOCYTES # (AUTO) 0.5 K/uL (0.8-1.0); NEUTROPHILS # (AUTO) 3.8 K/uL (1.8-7.7); NEUTROPHILS % (AUTO) 58.3 % (42.2-75.2); PLATELET COUNT (AUTO) 206 K/uL (140-450); RED BLOOD CELL COUNT(AUTO) 3.43 MIL/uL (4.20-5.40); WHITE BLOOD COUNT (AUTO) 6.5 K/uL (4.8-10.8)
[2019-08-14 06:10] LABS: ANION GAP 13.2 (8-16); CARBON DIOXIDE 26.3 mmol/L (21-32); CREATININE 1.9 mg/dL (0.6-1.3); POTASSIUM 5.5 mmol/L (3.5-5.1)
[2019-08-14 06:17] LABS: MAGNESIUM 1.8 mg/dL (1.8-2.4); PHOSPHORUS 4.5 mg/dL (2.5-4.9)
[2019-08-14] MEDS: NACL 0.9% 1,000 ML IV SCH (06:22)
--- NOTE | 2019-08-14 06:50 | NUR ---
PATIENT ASLEEP IN BED. VISIBLE CHEST RISE AND FALL NOTED. WILL CONTINUE TO MONITOR.
--- NOTE | 2019-08-14 07:10 | NUR ---
ENDORSED TO AM SHIFT NURSE IN STABLE CONDITION FOR CONTINUITY OF CARE.
--- NOTE | 2019-08-14 07:25 | NUR ---
RECEIVED BEDSIDE REPORT FROM LAYOUT INSPECTOR NURSE, PT IS AWAKE AND ALERT SITTING UP IN BED, NO S/S OF ACUTE DISTRESS, ON ROOM AIR, SKIN INTACT. IV SITE L WRIST 24 G, INFUSING NS 10 ML/HR. FALL PRECAUTIONS IN PLACE, CALL LIGHT IS WITHIN REACH.
[2019-08-14 08:00] VITALS: BP 124/72
[2019-08-14] MEDS: CALCIUM ACETATE 667 MG TAB PO SCH (08:00)
--- NOTE | 2019-08-14 08:27 | NUR ---
PATIENT HAS BEEN SCREENED AND CATEGORIZED MODERATE NUTRITION RISK. PATIENT WILL BE SEEN WITHIN 3-5 DAYS OF ADMISSION. 08/15/19 08/17/[address]
[2019-08-14] MEDS ORDERED: ASPIRIN 81 MG TAB.CHEW PO SCH (09:00)
[2019-08-14] MEDS ORDERED: SERTRALINE 50 MG TAB PO SCH (09:00)
[2019-08-14] MEDS: LACTOBACILLUS RHAMNOSUS GG 1 EACH CAP PO SCH (09:00)
[2019-08-14] MEDS ORDERED: LACTOBACILLUS RHAMNOSUS GG 1 EACH CAP PO SCH (09:00)
--- NOTE | 2019-08-14 09:10 | NUR ---
PT HAVING PHYSICAL THERAPY.
--- NOTE | 2019-08-14 09:49 | NUR ---
Tug Captain Assessment/Discharge Plan Name: Will Girard Home Relationship: son Pre-Admission Living Arrangements: Lives Alone Prior ADL Needs Assistance Current Name/Tel: walker, cane, no home O2 Healthcare Decision Maker: Patient Tentative Discharge Plan Summary: Patient is a 58 year old female from home with a history of sarcoidosis, chronic pain, DM, HTN, and anxiety. I met with patient at bedside. Patient alert and oriented x4. Patient lives alone at home with her cat. She stated she does not want to be transfer to a snf if recommended by MD. She has an [facility] application in process and is going to meet with Tug Captain from [facility] this month regarding application. Patient's pcp is and her psychiatrist is Kevin Harrell. She follows up with psychiatrist once a month. She reports having anxiety and taking medication for it. She does not have any difficulty filling her prescriptions. [facility] provides transportation for her to get to pcp's office. Patient's son and daughter Christiana visit patient at home provide support. Tug Captain and/or Element Winding Machine Tender will follow up as needed. Signature: YEFRI Carrillo Date: Aug 15, 2019
--- NOTE | 2019-08-14 10:02 | NUR ---
PT SEEN BY DR CHAMBERS.
--- NOTE | 2019-08-14 10:10 | NUR ---
AM MEDS ADMINISTERED, PT TOLERATED WELL. PT STATES THAT SHE TAKES 800 MG GABAPENTIN QID, AND AMITRIPTYLINE 100 MG AT HS FOR SLEEP. I CLARIFIED WITH PT REGARDING HER ALLERGY TO AMITRIPTYLINE, SHE STATED THAT SHE DOES NOT HAVE AN ALLERGY TO IT, AND HAS BEEN TAKING IT FOR A LONG TIME FOR SLEEP. WILL NOTIFY DR KELLY. Addendum: 08/14/19 at 1025 by Ann Fulton RN DR KELLY NOTIFIED
[2019-08-14] MEDS ORDERED: SODIUM POLYSTYRENE 15 GM/60 ML UDBTL PO SCH (11:00)
--- NOTE | 2019-08-14 11:26 | NUR ---
PT'S IV SITE DISLODGED. STARTED A NEW IV R HAND 22 G.
[2019-08-14 12:00] VITALS: BP 119/70
--- NOTE | 2019-08-14 14:30 | NUR ---
PT GETTING A KUB AT THIS TIME
[2019-08-14 16:00] VITALS: BP 112/65
--- NOTE | 2019-08-14 17:19 | NUR ---
PT RESTING IN BED WATCHING TV, NO S/S OF ACUTE DISTRESS, CALL LIGHT WITHIN REACH
[2019-08-14] MEDS: oxyCODONE/APAP 5/325 MG 1 TAB TAB PO PRN (17:28)
--- NOTE | 2019-08-14 18:55 | NUR ---
PT COMPLAINING THAT HER WHITE ROOM PHONE IS NOT WORKING, ALTHOUGH I'VE BEEN ABLE TO CONTACT HER SON FROM IT SEVERAL TIMES. SHE SAYS THAT THE PHONE CUTS OFF AFTER A FEW MINUTES. I REMOVED THIS PHONE AND BROUGHT HER A NEW PHONE.
--- NOTE | 2019-08-14 19:22 | NUR ---
PT ENDORSED TO TYPEWRITER RIBBON WINDER NURSE IN STABLE CONDITION.
--- NOTE | 2019-08-14 20:22 | NUR ---
AT 1999, PATIENT WANTED TO LEAVE THE HOSPITAL. NOTIFIED CHARGE NURSE, BEHAVIORAL HEALTH CARE MANAGER AND DR. ROBLES (RESIDENT). DR. ROBLES TALKED TO THE PATIENT AND EXPLAINED THE RISK AND BENEFITS OF LEAVING AGAINST MEDICAL ADVICE. PATIENT VERBALIZED UNDERSTANDING. REFUSED TO SIGN AMA FORM. ELOPED AND OUT OF BUILDING AT 2021.
[2019-08-14] MEDS ORDERED: GABAPENTIN 200 MG, GABAPENTIN 600 MG PO SCH ×2 (21:00)
[2019-08-14] MEDS ORDERED: GABAPENTIN 100 MG CAP PO SCH (21:00)
[2019-08-14] MEDS ORDERED: AMITRIPTYLINE 50 MG TAB PO SCH (21:00)
== END 2019-08-14 19:50 | disposition left against medical advice (07) | DRG 640 ==
LOC: MED 00:14 → MTU 05:41
PROVIDERS: ADMIT General Practice; ATTEND General Practice
DX: E87.5 Hyperkalemia (principal); N17.0 Acute kidney failure with tubular necrosis; E44.0 Moderate protein-calorie malnutrition; Z68.43 Body mass index [BMI] 50.0-59.9, adult; N12 Tubulo-interstitial nephritis, not specified as acute or chronic; E83.39 Other disorders of phosphorus metabolism; F41.9 Anxiety disorder, unspecified; G89.29 Other chronic pain; D86.9 Sarcoidosis, unspecified; E66.01 Morbid (severe) obesity due to excess calories; E78.5 Hyperlipidemia, unspecified; E11.22 Type 2 diabetes mellitus with diabetic chronic kidney disease; I12.9 Hypertensive chronic kidney disease with stage 1 through stage 4 chronic kidney disease, or unspecified chronic kidney disease; N18.3 Chronic kidney disease, stage 3 (moderate); D63.8 Anemia in other chronic diseases classified elsewhere; N81.89 Other female genital prolapse; R16.2 Hepatomegaly with splenomegaly, not elsewhere classified; K76.0 Fatty (change of) liver, not elsewhere classified; N20.0 Calculus of kidney; Z88.8 Allergy status to other drugs, medicaments and biological substances; Z90.710 Acquired absence of both cervix and uterus; Z82.5 Family history of asthma and other chronic lower respiratory diseases; Z82.49 Family history of ischemic heart disease and other diseases of the circulatory system; Z82.3 Family history of stroke; Z83.3 Family history of diabetes mellitus
CPT/HCPCS: 36415; 71045; 74018; 80048; 80053; 80305; 81001; 82436; 82550; 82570; 82948; 83036; 83605; 83690; 83735; 83880; 84100; 84439; 84443; 84484; 85025; 85610; 85730; 87040; 87081; 87086; 87804; 93005; 96361; 96365; 96366; 96375; 97116; 99291; J0696; J1815; J2270; J2543; J3010; J3490; J7030; J7060; Q0092

== ENCOUNTER 2019-08-22 17:20 | Emergency (ER) | payer OTHER ==
[~2019-08-22] VITALS: Ht 170.2 cm; Wt 160.1 kg
[~2019-08-22 17:20] MED LIST changes: +ACET-5629 PO; -ALPR0.5T2 PO; +ASPI-1718 PO; -ATOR40TA PO; -CEFT1VIA7 IV; -D50SYR IVP; -ELA10 PO; -HUMSLIDE SUBQ; -LACT10CA PO; +LISI30TA6 PO; -MAGN241.1 PO; -ZGUARD TP
[2019-08-22 17:34] VITALS: BP 151/78
--- NOTE | 2019-08-22 18:08 | NUR ---
PT TAKEN TO BED 3.
[2019-08-22] MEDS ORDERED: ONDANSETRON 4 MG ODT PO ONE (18:30)
[2019-08-22] MEDS ORDERED: MORPHINE SULFATE 4 MG/ML SYR IM ONE (18:30)
--- NOTE | 2019-08-22 18:52 | NUR ---
EKG AT BEDSIDE.
--- NOTE | 2019-08-22 18:56 | NUR ---
PT PRESENTS TO THE ED AFTER BEING REFERRED BY [facility] DR. JASMINA PRIEST FOR KIDNEY DISEASE. PT C/O LEFT HIP PAIN THAT RADIATED TO THE L LEG, PT STATES PAIN IS SHARP AND RATES PAIN 9/10 AT THIS TIME. PT STATES THAT SHE ALSO FEELS DISCOMFORT AT R FLANK AT THIS TIME. PT STATES THAT SHE HAS NAUSEA EVERY MORNING AND VOMITTED A FEW DAYS AGO. PT DENIES DIARRHEA, CP, AND SOB AT THIS TIME. PTS SKIN IS WARM, PINK, AND DRY. PT PRESENTS WITH A CLEAR SPEECH AND CONVERSES APPROPRIATELY. PT POSITIONED FOR COMFORT, HOB ELEVATED, BED RAIL UP X 1 FOR PT SAFETY. ER MD AWARE OF PT STATUS. 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 SARCOIDOSIS, DM TYPE 2 ( UNCONTROLLED ),HTN,HYPERLIPIDEMIA, ANXIETY.
[2019-08-22 19:59] LABS: BASOPHILS % (AUTO) 0.3 % (0.0-2.0); EOSINOPHILS # (AUTO) 0.2 K/uL (0-0.4); HEMOGLOBIN 9.9 g/dL (12.0-16.0); LYMPHOCYTES # (AUTO) 1.8 K/uL (2.5-16.5); MEAN CORPUSCULAR HEMOGLOBIN 27 pg (27-31); MEAN CORPUSCULAR HGB CONC 31 g/dL (33-37); MEAN CORPUSCULAR VOLUME 87.1 fL (80-94); MONOCYTES # (AUTO) 0.4 K/uL (0.8-1.0); MONOCYTES % (AUTO) 5.2 % (1.7-9.3); NEUTROPHILS # (AUTO) 5.5 K/uL (1.8-7.7); NEUTROPHILS % (AUTO) 69.5 % (42.2-75.2); PLATELET COUNT (AUTO) 223 K/uL (140-450); RED BLOOD CELL COUNT(AUTO) 3.68 MIL/uL (4.20-5.40); RED CELL DISTRIBUTION WIDTH 16.2 % (11.6-13.7); WHITE BLOOD COUNT (AUTO) 7.9 K/uL (4.8-10.8)
[2019-08-22 20:20] LABS: ANION GAP 13.9 (8-16); CARBON DIOXIDE 29.8 mmol/L (21-32); POTASSIUM 3.7 mmol/L (3.5-5.1)
[2019-08-22 20:26] LABS: ALBUMIN 3.6 g/dL (3.4-5.0); TOTAL BILIRUBIN 0.2 mg/dL (0.0-1.0)
--- NOTE | 2019-08-22 20:39 | NUR ---
PT PROVIDED URINE
--- NOTE | 2019-08-22 20:40 | NUR ---
PT IS RESTING IN BED SPEAKING TO FAMILY ON CELL PHONE.
--- NOTE | 2019-08-22 20:47 | NUR ---
URINE COLLECTED AND DELIVERED TO LAB.
--- NOTE | 2019-08-22 21:29 | NUR ---
Pt report given to KAYLA MERCADO. Transfer of care at this time.
--- NOTE | 2019-08-22 21:36 | NUR ---
ULTRA SOUND AT BEDSIDE
[2019-08-22 21:58] LABS: APPEARANCE,URINE CLEAR (CLEAR); BLOOD, URINE NEGATIVE (NEGATIVE); COLOR,URINE YELLOW (YELLOW); UGLUCOSE NEGATIVE (NEGATIVE)
[2019-08-22 21:59] LABS: BILIRUBIN,URINE NEGATIVE (NEGATIVE); LEUKOCYTE ESTERASE ,URINE NEGATIVE (NEGATIVE); NITRITE, URINE NEGATIVE (NEGATIVE)
[2019-08-22] MEDS ORDERED: fentaNYL 0.05 MG/ML VIAL IVP ONE (22:15)
[2019-08-22] MEDS ORDERED: fentaNYL 0.05 MG/ML VIAL IM ONE (23:00)
[2019-08-23 00:44] VITALS: BP 122/71
--- NOTE | 2019-08-23 00:44 | NUR ---
Patient discharged with v/s stable. Written and verbal after care instructions given and explained. Patient alert, oriented and verbalized understanding of instructions. Ambulatory with steady gait. All questions addressed prior to discharge. ID band removed. Patient advised to follow up with PMD. Rx of BENADRYL WAS given. Patient educated on indication of medication including possible reaction and side effects. Opportunity to ask questions provided and answered. PT STATED SHE HAD NO PAIN 0/10 PRIOR TO D/C
== END 2019-08-23 00:44 | disposition home or self-care (01) ==
LOC: MED 17:20
DX: M54.32 Sciatica, left side (principal); I12.9 Hypertensive chronic kidney disease with stage 1 through stage 4 chronic kidney disease, or unspecified chronic kidney disease; R10.9 Unspecified abdominal pain; E11.22 Type 2 diabetes mellitus with diabetic chronic kidney disease; N18.9 Chronic kidney disease, unspecified; M54.42 Lumbago with sciatica, left side; Z79.899 Other long term (current) drug therapy; Z79.82 Long term (current) use of aspirin; Z88.2 Allergy status to sulfonamides; Z88.9 Allergy status to unspecified drugs, medicaments and biological substances; Z88.6 Allergy status to analgesic agent; Z90.710 Acquired absence of both cervix and uterus
CPT/HCPCS: 36415; 76770; 80053; 81003; 85025; 93005; 96372; 99284; J2270; J3010; Q0092; Q0162

== ENCOUNTER 2019-10-20 18:41 | Emergency (ER) | payer OTHER ==
[~2019-10-20] VITALS: Ht 172.7 cm; Wt 104.3 kg
--- NOTE | 2019-10-20 18:41 | NUR ---
PT BIBA AND PLACED IN BED 6.
--- NOTE | 2019-10-20 18:42 | NUR ---
C/O ALOC X UNKNOWN. ALONZO REPORTEDLY CALLED 911 BECAUSE PT WAS HYSTERICAL AT HOME. PT DENIES DRUGS OR ALCOHOL USE. PT CAN RECALL EVENT AND HERSELF. CANT RECALL PRESIDENT OR YEAR. ADDS 10/10 GENERALIZED BODY PAINS BUT APPEARS TO BE IN NO DISTRESS. [place] [employer] ON SCENE. PT DENIES SI OR HARM TO OTHERS. PMH- DM, ANXIETY, DEPRESSION RX- DENIES
--- NOTE | 2019-10-20 18:43 | NUR ---
PT AMBULATES FROM GURNEY TO BED WITH STEADY GAIT
--- NOTE | 2019-10-20 18:43 | NUR ---
BS 116 IN FIELD
[2019-10-20] MEDS ORDERED: NACL 0.9% 1,000 ML IV ONE (18:50)
[2019-10-20 18:53] VITALS: BP 105/64
--- NOTE | 2019-10-20 19:05 | NUR ---
PT REFUSING IVF. STATES SHE WANTS THE FLUIDS BUT DOES NOT WANT TO BE "POKED" INFORMED PT THAT SHE WILL NEED TO BE POKED IN ORDER TO RECIEVE IVF
--- NOTE | 2019-10-20 19:06 | NUR ---
PT STATES SHE CAN NOT GIVE URINE AT THIS TIME
--- NOTE | 2019-10-20 19:08 | NUR ---
PT REFUSING LAB DRAW
--- NOTE | 2019-10-20 19:15 | NUR ---
PT SLEEPING IN BED, RR EVEN AND UNLABORED
--- NOTE | 2019-10-20 19:44 | NUR ---
PT CONTINUES TO REFUSE CARE. PT REFUSES TO SIGN DISCHARGE PAPERWORK
--- NOTE | 2019-10-20 19:47 | NUR ---
SHILPA GARZA SPOKE WITH PTS SON PJ. STATES HE WILL CALL AN UBER OR LYFT FOR PTS TO GET HOME. ETA IS 3 MIN
== END 2019-10-20 19:47 | disposition home or self-care (01) ==
LOC: MED 18:41
DX: G89.29 Other chronic pain (principal); E11.9 Type 2 diabetes mellitus without complications; I10 Essential (primary) hypertension; F32.9 Major depressive disorder, single episode, unspecified; Z90.710 Acquired absence of both cervix and uterus; Z98.890 Other specified postprocedural states; Z79.82 Long term (current) use of aspirin; Z79.899 Other long term (current) drug therapy; Z88.8 Allergy status to other drugs, medicaments and biological substances
CPT/HCPCS: 99283

== ENCOUNTER 2019-10-21 13:18 | Inpatient (IN) | payer OTHER ==
[~2019-10-21] VITALS: Ht 167.6 cm; Wt 103.4 kg
--- NOTE | 2019-10-21 13:21 | NUR ---
[facility] TO ER BED 09
[2019-10-21 13:59] LABS: BASOPHILS # (AUTO) 0.1 K/uL (0.00-0.22); BASOPHILS % (AUTO) 0.6 % (0.0-2.0); EOSINOPHILS # (AUTO) 0.1 K/uL (0-0.4); EOSINOPHILS % (AUTO) 0.5 % (0.0-4.0); HEMATOCRIT 37.2 % (36-48); HEMOGLOBIN 11.5 g/dL (12.0-16.0); LYMPHOCYTES # (AUTO) 1.8 K/uL (2.5-16.5); LYMPHOCYTES % (AUTO) 14.5 % (20.5-51.1); MEAN CORPUSCULAR HEMOGLOBIN 26 pg (27-31); MEAN CORPUSCULAR HGB CONC 31 g/dL (33-37); MEAN CORPUSCULAR VOLUME 84.5 fL (80-94); MONOCYTES # (AUTO) 0.7 K/uL (0.8-1.0); MONOCYTES % (AUTO) 5.3 % (1.7-9.3); NEUTROPHILS % (AUTO) 79.1 % (42.2-75.2); PLATELET COUNT (AUTO) 281 K/uL (140-450); RED CELL DISTRIBUTION WIDTH 16.8 % (11.6-13.7); WHITE BLOOD COUNT (AUTO) 12.6 K/uL (4.8-10.8)
--- NOTE | 2019-10-21 14:03 | NUR ---
EMT AT BEDSIDE PERFORMING EKG
[2019-10-21 14:18] LABS: ANION GAP 14.7 (8-16); CARBON DIOXIDE 27.4 mmol/L (21-32); CHLORIDE 101 mmol/L (98-107); CREATININE 1.1 mg/dL (0.6-1.3); GFR ARICAN-AMERICAN 66 mL/min (>90); GLUCOSE 116 mg/dL (74-106); POTASSIUM 4.1 mmol/L (3.5-5.1); SODIUM SERUM 139 mmol/L (136-145); UREA NITROGEN, BLOOD 24 mg/dL (7-18)
[2019-10-21 14:24] LABS: ACETAMINOPHEN < 0.5 ug/ml (10-30); ALBUMIN 3.9 g/dL (3.4-5.0); ASPARTATE AMINOTRANSFERASE 10 U/L (15-37); SALICYLATE < 2.8 mg/dL (2.8-20.0); TOTAL BILIRUBIN 0.4 mg/dL (0.0-1.0)
[2019-10-21] MEDS ORDERED: LORazepam 2 MG/ML VIAL IM ONE (14:40)
[2019-10-21] MEDS ORDERED: diphenhydrAMINE 50 MG/ML VIAL ONE (14:40)
[2019-10-21] MEDS ORDERED: diphenhydrAMINE 50 MG/ML VIAL IM ONE (14:40)
[2019-10-21] MEDS ORDERED: LORazepam 2 MG/ML VIAL ONE (14:40)
[2019-10-21] MEDS ORDERED: HALOPERIDOL IM 5 MG/ML VIAL ONE (15:38)
[2019-10-21] MEDS ORDERED: HALOPERIDOL IM 5 MG/ML VIAL IM ONE (15:40)
--- NOTE | 2019-10-21 15:50 | NUR ---
URINARY CATH SPECIMEN COLLECTED AT BEDSIDE BY ROLLE CATHETER.
--- NOTE | 2019-10-21 15:50 | NUR ---
PT IS ABLE TO ANSWER THE YEAR. I ASK PATIENT WHERE SHE LIVES AND REPLIES "I DON'T REMEMBER." PT ASKED WHERE SHE IS AT AND REPLIES "[facility]." I ASKED PATIENT WHY THEY BROUGHT HER HERE AND SHE REPLIES "I JUST HAD A BABY." ASKED HER WHEN THAT WAS AND SHE STATES "YESTERDAY." DENIES SI OR HI. PT STATES SHE IS HEARING VOICES. I ASKED PATIENT WHAT THEY ARE SAYING TO HER AND SHE REPLIES "I DON'T REMEMBER." I ASKED HER WHAT HER SON'S NAME IS AND SHE REPLIED "I DON'T REMEMBER." PT NODS IN AGREEMENT WHEN I ASKED HER IF SHE LIVES AT HOME ALONE.
--- NOTE | 2019-10-21 15:53 | NUR ---
MADE ATTEMPT TO CALL PT'S SON WITH NO ANSWER. VOICEMAIL LEFT.
--- NOTE | 2019-10-21 16:08 | NUR ---
PT RESTING COMFORTABLY, VSS, OFFERED BLANKET. RESPIRATIONS UNLABORED.
--- NOTE | 2019-10-21 16:20 | NUR ---
PT PLACED ON 5150 HOLD FOR GRAVELY DISABLED.
--- NOTE | 2019-10-21 16:25 | NUR ---
PT MOVED TO ED 05 FOR CLOSER OBSERVATION. ASSUMED CARE OF PT FROM KAYLA REYES.
[2019-10-21 16:31] LABS: BARBITURATE, URINE NEG. ng/ml (NEG <=200); BENZODIAZEPINE, URINE NEG. ng/mL (NEG <=200); CANNABINOID, URINE NEG. ng/mL (NEG <=50); COCAINE, URINE NEG. ng/mL (NEG <=300); OPIATE, URINE NEG. ng/mL (NEG <=2000); PHENCYCLIDINE SCREEN,URINE NEG. ng/mL (NEG <=25)
--- NOTE | 2019-10-21 17:05 | NUR ---
[facility] received pacekt via fax. Contacted the following facilities regarding placement: [facility] [place], [facility]. No beds at this time. Packet faxed for review/waitlist.
--- NOTE | 2019-10-21 17:42 | NUR ---
REMAINS IN BED, QUIET, BUT AROUSABLE TO NAME. NO DISTRESS NOTED.
--- NOTE | 2019-10-21 19:13 | NUR ---
REPORT TO KAYLA DURBIN. ALL CARE TRASNFERED AT THIS TIME.
--- NOTE | 2019-10-21 19:14 | NUR ---
REPORT RECEIVED FROM YESENIA GARZA. PATIENT RESTING WITH EYES CLOSED, BREATHING EVEN AND UNLABORED.
--- NOTE | 2019-10-21 20:05 | NUR ---
PER TELEPSYCH REQUEST INITIATED
--- NOTE | 2019-10-21 20:20 | NUR ---
PATIENT AND KAYLA DURBIN TALK TO TELEPSYCHE DOCTOR
--- NOTE | 2019-10-21 20:30 | NUR ---
PATIENT ALERT AND ORIENTED, BREATHING EVEN AND UNLABORED
[2019-10-21] MEDS ORDERED: LORazepam 2 MG/ML VIAL IM/IVP PRN (21:15)
[2019-10-21] MEDS ORDERED: ONDANSETRON 4 MG/2 ML VIAL IM/IVP PRN (21:15)
[2019-10-21] MEDS ORDERED: ACETAMINOPHEN 325 MG TAB PO PRN (21:15)
--- NOTE | 2019-10-21 21:30 | NUR ---
PATIENT ALERT AND ORIENTED, BREATHING EVEN AND UNLABORED
[2019-10-21] MEDS ORDERED: DEXTROSE 50% 50 ML SYR IVP PRN (21:45)
[2019-10-21] MEDS ORDERED: oxyCODONE/APAP 5/325 MG 1 TAB TAB PO SCH (21:45)
[2019-10-21] MEDS ORDERED: INSULIN LISPRO SLIDING SCALE 100 UNITS/ML VIAL SUBQ PRN (21:45)
[2019-10-21 21:58] LABS: APPEARANCE,URINE CLEAR (CLEAR); BILIRUBIN,URINE NEGATIVE (NEGATIVE); BLOOD, URINE NEGATIVE (NEGATIVE); COLOR,URINE YELLOW (YELLOW); LEUKOCYTE ESTERASE ,URINE 1+ (NEGATIVE); NITRITE, URINE POSITIVE (NEGATIVE); PH,URINE 5.5 (5.0-9.0); UGLUCOSE NEGATIVE (NEGATIVE)
[2019-10-21 22:00] LABS: RBC,URINE 0-5 /HPF (0-5)
[2019-10-21] MEDS ORDERED: ONDANSETRON 4 MG/2 ML VIAL IVP SCH (22:00)
--- NOTE | 2019-10-21 22:25 | NUR ---
RECEIVED BEDSIDE REPORT FROM BACK UP SCAN COORDINATOR RAMAKRISHNA. PT IS AAOX2-3. RESPIRATIONS ARE EQUAL AND UNLABORED IN ROOM AIR. LUNG SOUNDS ARE CLEAR. SKIN IS INTACT. NO IV ACCESS. PT WALKED FROM WHEELCHAIR TO BED. C/C ALOC. PT DX 5150 HOLD, GRAVELY DISABLED. ALOC. PT MORE ALERT NOW. DENIES DRUG OR ALCOHOL ABUSE. PT DENIES SI. PER PT LIVES ALONE WITH HER PET CAT IN APARTMENTS. DOESN'T RECALL WHY THEY BROUGHT HER IN. POC DISCUSSED WITH PT. MRSA SWAB OBTAINED. ADMIT VS: 101/58, 105, 97%, 16 97.8. CALL LIGHT IS WITHIN REACH. WILL CONTINUE TO MONITOR.
--- NOTE | 2019-10-21 22:25 | NUR ---
Patient will be admitted to care of DR JOHNSON. Admited to [facility]. Will go to room 122B. Belongings list completed. Report to YULI GARZA.
[2019-10-21] MEDS: oxyCODONE/APAP 5/325 MG 1 TAB TAB PO PRN (22:50)
--- NOTE | 2019-10-21 22:50 | NUR ---
PERCOCET ADMINISTERED FOR BACK PAIN 03/13. PT SITTING UP EATING TUNA SANDWICH. ALL NEEDS MET AT THIS TIME. WILL CONTINUE TO MONITOR.
[2019-10-21 23:00] VITALS: BP 101/58
[2019-10-21] MEDS: NACL 0.9% 1,000 ML IV SCH (23:35)
--- NOTE | 2019-10-22 | NUR ---
VITAL SIGNS ARE STABLE. PT RESTING COMFORTABLY IN BED WATCHING TV. NO S/S OF DISTRESS. CALL LIGHT IS WITHIN REACH.
--- NOTE | 2019-10-22 02:08 | NUR ---
PT IS SLEEPING COMFORTABLY IN BED WITH EYES CLOSED. RESPIRATIONS ARE EQUAL AND UNLABORED. NO S/S OF DISTRESS. CALL LIGHT IS WITHIN REACH.
[2019-10-22 02:13] LABS: PROTHROMBIN TIME 10.3 secs (10.8-13.4)
[2019-10-22 02:25] LABS: MAGNESIUM 1.8 mg/dL (1.8-2.4); PHOSPHORUS 3.2 mg/dL (2.5-4.9); THYROID STIMULATING HORMONE 2.35 uIU/mL (0.34-3.74)
--- NOTE | 2019-10-22 04:10 | NUR ---
PATIENT IS SLEEPING COMFORTABLY IN BED WITH EYES CLOSED. CHEST RISE AND FALL. CALL LIGHT IS WITHIN REACH.
[2019-10-22] MEDS: BLOOD GLUCOSE MONITORING 1 DEV DEV FS SCH ×4 (06:18→20:11)
--- NOTE | 2019-10-22 06:18 | NUR ---
BLOOD SUGAR 107 NO COVERAGE PER SLIDING SCALE. PT IS STABLE. NO S/S OF DISTRESS. CALL LIGHT IS WITHIN REACH.
[2019-10-22] MEDS: oxyCODONE/APAP 5/325 MG 1 TAB TAB PO PRN ×3 (06:53→23:51)
--- NOTE | 2019-10-22 07:09 | NUR ---
GAVE BEDSIDE REPORT TO DAY RN. PT ENDORSED IN STABLE CONDITION. DR ELY IS AT BEDSIDE.
--- NOTE | 2019-10-22 07:10 | NUR ---
RECEIVED REPORT FROM MARKET RESEARCH ASSOCIATE NURSE. PT IS AWAKE AND STABLE, NO SIGNS OF DISTRESS. DR. ELY IS AT BEDSIDE TALKING TO THE PT. CALL LIGHT WITHIN PT'S REACH, BED ON LOW, SIDERAILS UP. PT HAS IV AT RT FOREARM 22G WITH NS INFUSING AT 80ML/HR. WILL CONTIUE TO MONITOR.
[2019-10-22 07:29] LABS: BASOPHILS % (AUTO) 0.3 % (0.0-2.0); EOSINOPHILS # (AUTO) 0.1 K/uL (0-0.4); EOSINOPHILS % (AUTO) 0.6 % (0.0-4.0); HEMATOCRIT 32.6 % (36-48); HEMOGLOBIN 10.4 g/dL (12.0-16.0); LYMPHOCYTES # (AUTO) 2.3 K/uL (2.5-16.5); LYMPHOCYTES % (AUTO) 17.9 % (20.5-51.1); MEAN CORPUSCULAR HEMOGLOBIN 27 pg (27-31); MEAN CORPUSCULAR HGB CONC 32 g/dL (33-37); MEAN CORPUSCULAR VOLUME 83.4 fL (80-94); MONOCYTES # (AUTO) 0.7 K/uL (0.8-1.0); MONOCYTES % (AUTO) 5.4 % (1.7-9.3); NEUTROPHILS # (AUTO) 9.9 K/uL (1.8-7.7); NEUTROPHILS % (AUTO) 75.8 % (42.2-75.2); PLATELET COUNT (AUTO) 258 K/uL (140-450); RED BLOOD CELL COUNT(AUTO) 3.91 MIL/uL (4.20-5.40); RED CELL DISTRIBUTION WIDTH 16.4 % (11.6-13.7); WHITE BLOOD COUNT (AUTO) 13.1 K/uL (4.8-10.8)
[2019-10-22 07:45] LABS: ANION GAP 15.5 (8-16); CARBON DIOXIDE 26.6 mmol/L (21-32); POTASSIUM 4.1 mmol/L (3.5-5.1)
[2019-10-22 07:47] LABS: MAGNESIUM 1.9 mg/dL (1.8-2.4)
[2019-10-22 08:00] VITALS: BP 127/66
[2019-10-22] MEDS ORDERED: cefTRIAXone 1,000 MG VIAL ONE (08:17)
[2019-10-22] MEDS ORDERED: LIDOCAINE MPF 1% 0 ML ONE (08:17)
[2019-10-22] MEDS: ASPIRIN 81 MG TAB.CHEW PO SCH (08:46)
[2019-10-22] MEDS: FERROUS SULFATE 325 MG TABEC PO SCH ×2 (08:47→17:27)
[2019-10-22] MEDS: LACTOBACILLUS RHAMNOSUS GG 1 EACH CAP PO SCH (08:47)
[2019-10-22] MEDS: SERTRALINE 50 MG TAB PO SCH (08:47)
[2019-10-22] MEDS: LISINOPRIL 10 MG TAB PO SCH (08:48)
--- NOTE | 2019-10-22 08:48 | NUR ---
V/S TAKEN WITH BP OF 127/66 AND P 100. MEDICATION EDUCATION PROVIDED TO THE PT. AND PT VERBALIZED UNDERSTANDING. SCHEDULED MEDS GIVEN. PT TOLERATED WELL. PT IS AWAKE, RESTING ON BED AT THIS TIME. NO SIGNS OF DISTRESS NOTED. BED IN LOW POSITION, CALL LIGHT WITHIN PT'S REACH. BED ALARM ACTIVATED.
[2019-10-22] MEDS ORDERED: cefTRIAXone 1,000 MG in LIDOCAINE MPF 1% 2.1 ML IM SCH (09:00)
[2019-10-22] MEDS: MORPHINE SULFATE 2 MG/ML SYR IVP PRN ×3 (11:11→22:15)
--- NOTE | 2019-10-22 11:11 | NUR ---
PATIENT COMPLAINED OF PAIN IN HER LEGS AND BACK WITH PAIN SCALE OF 9/10. PT'S BP IS 127/66. PT WAS GIVEN MORPHINE .5 ML FOR PAIN VIA IVP. MEDICATION EDUCATION GIVEN AND PT VERBALIZED UNDERSTANDING. WILL CONTINUE TO MONITOR
--- NOTE | 2019-10-22 11:57 | NUR ---
FREQUENT ROUNDING DONE. PT IS SITTING IN BED. PT IS STABLE, NO SIGNS OF DISTRESS. PT DENIES PAIN. CALL LIGHT WITHIN PT'S REACH. BED ON LOW, SIDERAILS UP. HAND DECORATOR INSIDE THE ROOM TO ASSIST PT WITH WASHING AND GOING TO THE BATHROOM. WILL CONTINUE TO MONITOR
[2019-10-22] MEDS: NACL 0.9% 1,000 ML IV SCH (12:50)
--- NOTE | 2019-10-22 13:05 | NUR ---
FREQUENT ROUNDING DONE. PT IS SLEEPING. PT IS STABLE, NO SIGNS OF DISTRESS. CALL LIGHT WITHIN PT'S REACH, BED ON LOW, SIDERAILS UP. WILL CONTINUE TO MONITOR
--- NOTE | 2019-10-22 14:15 | NUR ---
ASSISTED PT TO THE BATHROOM AND BACK TO THE BED. PT IS STABLE, NO SIGNS OF DISTRESS. WILL CONTINUE TO MONITOR
--- NOTE | 2019-10-22 15:14 | NUR ---
PATIENT COMPLAINT OF PAIN IN HER LEGS AND BACK /. PERCOCET PO PRN GIVEN. PT TOLERATED WELL. WILL REASSESS FOR PAIN.
[2019-10-22 16:00] VITALS: BP 114/64
--- NOTE | 2019-10-22 17:05 | NUR ---
SCHEDULED MEDS GIVEN. PT TOLERATED WELL. CALL LIGHT WITHIN PT'S REACH. WILL CONTINUE TO MONITOR
--- NOTE | 2019-10-22 17:52 | NUR ---
Have been monitoring for bed status throughout the day. Milagro Wilkinson/ Sherrell - patient is our list for transfer center Dav Renee / Don - "Sorry we do not have any beds today Mayi / Roxi - Refaxed Fermín / Marce "No beds today." Will endorse to next shift and staff will keep facility updated with any information
--- NOTE | 2019-10-22 18:13 | NUR ---
PT COMPLAINED OF PAIN ON HER LEGS AND BACK 05/13. MORPHINE 0.5ML GIVEN IVP. CALL LIGHT WITHIN PT'S REACH. WILL CONTINUE TO MONITOR
--- NOTE | 2019-10-22 19:22 | NUR ---
REPORT GIVEN TO TABLE SETTER NURSE AT BEDSIDE FOR CONTINUITY OF CARE. PT IS RESTING IN BED. NO SIGNS OF DISTRESS. CALL LIGHT WITHIN PT'S REACH. PT IS STABLE.
--- NOTE | 2019-10-22 19:22 | NUR ---
RECEIVED BEDSIDE REPORT FROM DAY RN. PT IS AAOX3, NO SIGNS OF DISTRESS. SKIN IS INTACT. C/C ALOC. CALL LIGHT WITHIN PT'S REACH, BED ON LOW, SIDE RAILS UP. PT HAS IV AT RT FOREARM 22G WITH NS INFUSING AT 80ML/HR. PT IS AMBULATORY. WILL CONTINUE TO MONITOR.
--- NOTE | 2019-10-22 20:18 | NUR ---
PLAN OF CARE DISCUSSED WITH PT. PT VERBALIZED UNDERSTANDING. ESEQUIEL MEDS GIVEN. PT TOLERATED WELL. CALL LIGHT IS WITHIN REACH.
--- NOTE | 2019-10-22 22:15 | NUR ---
VSS. ADMINISTERED PRN MORPHINE FOR BACK PAIN 06/13 PT TOLERATED WELL. CALL LIGHT IS WITHIN REACH.
--- NOTE | 2019-10-22 23:51 | NUR ---
VSS. ADMINISTERED PRN PERCOCET FOR BACK PAIN 03/13. PT TOLERATED WELL. CALL LIGHT IS WITHIN REACH. WILL CONTINUE TO MONITOR.
[2019-10-23] VITALS: BP 96/55
[2019-10-23] MEDS: NACL 0.9% 1,000 ML IV SCH ×3 (01:46→23:27)
[2019-10-23] MEDS: MORPHINE SULFATE 2 MG/ML SYR IVP PRN ×3 (02:24→15:13)
--- NOTE | 2019-10-23 02:24 | NUR ---
D/C IV ON RFA D/T CC PAIN. IV CATH IS INTACT. NEW IV INSERTED ON L FA 22G ON FIRST ATTEMPT. PT TOLERATED WELL. PRN MORPHINE ADMINISTERED FOR BACK PAIN. CALL LIGHT IS WITHIN REACH. WILL CONTINUE TO MONITOR.
--- NOTE | 2019-10-23 04:20 | NUR ---
ASSISTED PT TO BATHROOM PT WITH STEADY GAIT. ALL NEEDS MET. CALL LIGHT IS WITHIN REACH.
[2019-10-23] MEDS: BLOOD GLUCOSE MONITORING 1 DEV DEV FS SCH ×4 (05:59→20:18)
[2019-10-23 06:01] LABS: ANION GAP 14.6 (8-16); CARBON DIOXIDE 27.6 mmol/L (21-32); CREATININE 1.1 mg/dL (0.6-1.3); POTASSIUM 4.2 mmol/L (3.5-5.1)
[2019-10-23 06:04] LABS: MAGNESIUM 1.9 mg/dL (1.8-2.4); PHOSPHORUS 3.5 mg/dL (2.5-4.9)
[2019-10-23 06:06] LABS: HEMATOCRIT 33.4 % (36-48); HEMOGLOBIN 10.5 g/dL (12.0-16.0); MEAN CORPUSCULAR HEMOGLOBIN 27 pg (27-31); MEAN CORPUSCULAR HGB CONC 32 g/dL (33-37); MEAN CORPUSCULAR VOLUME 84.6 fL (80-94); PLATELET COUNT (AUTO) 314 K/uL (140-450); RED BLOOD CELL COUNT(AUTO) 3.95 MIL/uL (4.20-5.40); RED CELL DISTRIBUTION WIDTH 16.8 % (11.6-13.7)
[2019-10-23 06:45] LABS: EOSINOPHILS % (MANUAL) 1 % (0-4); LYMPHOCYTES % (MANUAL) 25 % (20-46); MONOCYTES % (MANUAL) 4 % (5-12)
--- NOTE | 2019-10-23 07:25 | NUR ---
RECEIVE REPORT FROM NIGHT NURSE, PT IS AAOX3 IN BED, PT IS STABLE, INTRODUCE SELF, UPDATED WHITEBOARD, PT HAS A RFA 22G RUNNING NS AT 80 ML/H, SAFETY MEASURES IN PLACE, CALL LIGHT WITHIN REACH.
--- NOTE | 2019-10-23 07:26 | NUR ---
RECEIVE REPORT FROM NIGHT NURSE, PT STABLE, ASLEEP IN BED, EDDIE PICC LINE RUNNING D51/2HS AT 150ML/H, UPDATE WHITEBOARD, SAFETY MEASURES IN PLACE. CALL LIGHT WITHIN REACH. Addendum: 10/23/19 at 0759 by Blanca Melendez RN WRONG PT,
--- NOTE | 2019-10-23 07:26 | NUR ---
GAVE BEDSIDE REPORT TO DAY RN. PT ENDORSED IN STABLE CONDITION.
[2019-10-23 08:00] VITALS: BP 106/70
[2019-10-23 08:08] LABS: FOLIC ACID 16.7 ng/mL (>3.0)
[2019-10-23] MEDS: LACTOBACILLUS RHAMNOSUS GG 1 EACH CAP PO SCH (08:56)
[2019-10-23] MEDS: ASPIRIN 81 MG TAB.CHEW PO SCH (08:56)
[2019-10-23] MEDS: FERROUS SULFATE 325 MG TABEC PO SCH ×2 (08:56→17:16)
--- NOTE | 2019-10-23 08:56 | NUR ---
GAVE PT ORDERED MEDICATION, PT EDUCATION GIVEN, PT TOLERATED WELL, PT IS STABLE, WILL CONTINUE TO MONITOR
[2019-10-23] MEDS: SERTRALINE 50 MG TAB PO SCH (08:57)
[2019-10-23] MEDS: LISINOPRIL 10 MG TAB PO SCH (08:57)
--- NOTE | 2019-10-23 09:04 | NUR ---
PATIENT HAS BEEN SCREENED AND CATEGORIZED MODERATE NUTRITION RISK. PATIENT WILL BE SEEN WITHIN 3-5 DAYS OF ADMISSION. 10/24/19 10/26/[address]
[2019-10-23] MEDS: oxyCODONE/APAP 5/325 MG 1 TAB TAB PO PRN (09:32)
--- NOTE | 2019-10-23 12:06 | NUR ---
PT RESTING IN BED WATCHING TV, PT STATES SHE IS FINE, PT IS STABLE, CALL LIGHT WITHIN REACH.
--- NOTE | 2019-10-23 15:13 | NUR ---
GAVE PT MORPHINE FOR SEVERE BACK PAIN 06/13, EDUCATION GIVEN, PT TOLERATED WELL, WILL CONTINUE TO MONITOR
--- NOTE | 2019-10-23 15:18 | NUR ---
GAVE PT MORPHINE FOR SEVERE BACK PAIN 06/13. EDUCATION GIVEN, PT TOLERATED IT WELL. CALL LIGHT WITHIN REACH.
[2019-10-23 16:00] VITALS: BP 113/54
--- NOTE | 2019-10-23 17:24 | NUR ---
YEFRI assessment/discharge plan High Risk DC Screen Yes Name: Will Girard Home Relationship: son Pre-Admission Living Arrangements: Lives Alone Prior ADL Needs Assistance Current Name/Tel: walker, cane, no home O2 Healthcare Decision Maker: Patient Advance Directive No Information Taught: Community Resources Person Taught: Patient Teaching Tools: Community Resources Verbal Factors Affecting Learning: None Participation Level: Active Evaluation: Gestures Understanding Verbalizes Understanding Educator: YEFRI Carrillo Discipline: Case Mgt/Social Svcs Tentative Discharge Plan Summary: Patient is a 58 year old female admitted for 5150 hold grave disability and ALOC. I met with patient at bedside. Patient stated she lives at home with her cat and would like to return home upon discharge. Psychiatrist discontinued hold. She stated she is not receiving IHSS and does not know what happened to the application she submitted for IHSS. Patient's pcp is and her psychiatrist is Kevin Harrell. She reported her son and daughter Christiana visit her at home often and provide assistance. She is in agreement with being referred to any community resources that she might benefit from. Machinist First Class and/or Relief Driller will follow up as needed. Signature: YEFRI Carrillo Date: Oct 23, 2019
--- NOTE | 2019-10-23 17:30 | NUR ---
PT IS STABLE, RESTING IN BED WATCHING TV, NO SIGNS OF DISTRESS NOTED, CALL LIGHT WITHIN REACH.
--- NOTE | 2019-10-23 17:40 | NUR ---
TRIED TO GET THE PT TO AMBULATE DOWN THE HALLWAY, PT REFUSED. PT ABLE TO AMBULATE TO THE BATHROOM ROOM AND TO THE CHAIR IN THE ROOM,
--- NOTE | 2019-10-23 19:28 | NUR ---
GAVE REPORT TO NIGHT NURSE, PT IS STABLE
--- NOTE | 2019-10-23 19:29 | NUR ---
RECEIVED FROM AM RN IN BED PT. AWAKE AND ABLE TO CARRY A CONVERSATION WITH US IN INDONESIAN. NO COMPLAINTS DONE. CALL LIGHT WITH IN REACH. ENCOURAGED TO CALL FOR ANY HELP SHE MAY NEED. CARE PLANS FOR THE NIGHT DISCUSSED WITH HER. IVF SITE TO LEFT FOREARM INTACT AND NO INFILTRATION.
--- NOTE | 2019-10-23 20:24 | NUR ---
BLOOD SUGAR CHECK PER FINGERSTICK IS 105. NO INSULIN COVERAGE. PT. HAPPY OF HER BLOOD SUGAR RESULT. DM MIDNIGHT SNACK PROVIDED. ENCOURAGED TO CALL FOR ANY HELP SHE MAY NEED. CALL LIGHT AT BEDSIDE . ORIENTED TO USE OF IT AND BED ALARM ON. REMINDED TO WALK MORE AND REMINDED WE WILL HELP HER MOVE AND AMBULATE. "OK"
--- NOTE | 2019-10-23 23:17 | NUR ---
NO COMPLAINTS AT THIS TIME. CALL LIGHT WITH IN REACH. STILL AWAKE WATCHING TV. ENCOURAGED TO SLEEP AND REST. REMINDED TO WALK WITH NURSE TOMORROW. "I WILL TRY" PT. ABLE TO VERBALIZE NEEDS WELL IN ITALIAN.
[2019-10-24] VITALS: BP 102/68
--- NOTE | 2019-10-24 02:00 | NUR ---
RECEIVED REPORT FROM LIBAN GARZA. PATIENT IS ASLEEP. RESPIRATION EVEN UNLABORED ON ROOM AIR. NO DISTRESS NOTED. WILL CONTINUE TO MONITOR.
--- NOTE | 2019-10-24 02:10 | NUR ---
ENDORSED TO ANOTHER RN FOR CONTINUITY OF CARE. SLEEPING. WAKES UP EASILY WHEN CALLED BY NAME. NO RESTLESSNESS. IVF SITE TO RIGHT HAND #24 INTACT AND NO INFILTRATION. CALL LIGHT WITH IN REACH.
--- NOTE | 2019-10-24 04:00 | NUR ---
CHECKED PATIENT. PATIENT SLEEPING. RESPIRATION EVEN UNLABORED ON ROOM AIR. NO DISTRESS NOTED. WILL CONTINUE TO MONITOR.
[2019-10-24] MEDS: NACL 0.9% 1,000 ML IV SCH (05:53)
[2019-10-24] MEDS: BLOOD GLUCOSE MONITORING 1 DEV DEV FS SCH ×3 (06:35→16:30)
[2019-10-24 06:42] LABS: ANION GAP 13.8 (8-16); POTASSIUM 3.8 mmol/L (3.5-5.1)
[2019-10-24 06:43] LABS: CREATININE 0.9 mg/dL (0.6-1.3)
[2019-10-24 06:46] LABS: MAGNESIUM 1.9 mg/dL (1.8-2.4); PHOSPHORUS 3.4 mg/dL (2.5-4.9)
--- NOTE | 2019-10-24 07:20 | NUR ---
RECEIVED MORNING BEDSIDE SHIFT REPORT FROM AUTOMATIC HEAD SAWYER NURSE FOR CONTINUATION OF CARE. PATIENT WAS PLACED ON A 5150 HOLD FOR GRAVE DISABILITY, WAITING FOR DISCHARGE. PATIENT IS IN MEDICALLY STABLE [id number], CALL LIGHT ON AND WITHIN REACH. EDUCATED ON THE IMPORTANCE OF COMING TO STAFF FOR CONCERNS. WILL CONTINUE TO MONITOR FOR SAFETY.
--- NOTE | 2019-10-24 07:21 | NUR ---
ENDORSED PATIENT TO DAY SHIFT NURSE. PATIENT IN STABLE CONDITION.
[2019-10-24] MEDS: oxyCODONE/APAP 5/325 MG 1 TAB TAB PO PRN (07:41)
[2019-10-24 08:00] VITALS: BP 106/73
[2019-10-24 08:17] LABS: BASOPHILS % (AUTO) 0.3 % (0.0-2.0); EOSINOPHILS # (AUTO) 0.2 K/uL (0-0.4); EOSINOPHILS % (AUTO) 1.4 % (0.0-4.0); HEMATOCRIT 31.9 % (36-48); HEMOGLOBIN 10.1 g/dL (12.0-16.0); LYMPHOCYTES # (AUTO) 2.1 K/uL (2.5-16.5); LYMPHOCYTES % (AUTO) 19.1 % (20.5-51.1); MEAN CORPUSCULAR HEMOGLOBIN 27 pg (27-31); MEAN CORPUSCULAR HGB CONC 32 g/dL (33-37); MONOCYTES # (AUTO) 0.8 K/uL (0.8-1.0); MONOCYTES % (AUTO) 7.1 % (1.7-9.3); NEUTROPHILS % (AUTO) 72.1 % (42.2-75.2); PLATELET COUNT (AUTO) 225 K/uL (140-450); RED CELL DISTRIBUTION WIDTH 16.2 % (11.6-13.7); WHITE BLOOD COUNT (AUTO) 11.1 K/uL (4.8-10.8)
--- NOTE | 2019-10-24 10:00 | NUR ---
JOHN IS RESTING IN BED, PAIN MEDICATIONS ADMINISTERED FOR SEVERE PAIN. TOLERATED WELL. MEDICATION ADMINISTERED, TOLERATED WELL. DISCHARGE ORDER PLACED, AWAITING PLACEMENT PER CASE MANAGEMENT. BREAKFAST TOLERATED WELL. EDUCATED ON THE IMPORTANCE OF COMING TO STAFF FOR ANY CONCERNS. CALL LIGHT ON AND WITHIN REACH, BED IN LOW POSITION. WILL CONTINUE TO MONITOR.
[2019-10-24] MEDS: MORPHINE SULFATE 2 MG/ML SYR IVP PRN ×2 (10:06→15:20)
[2019-10-24] MEDS: LISINOPRIL 10 MG TAB PO SCH (10:24)
[2019-10-24] MEDS: SERTRALINE 50 MG TAB PO SCH (10:24)
[2019-10-24] MEDS: ASPIRIN 81 MG TAB.CHEW PO SCH (10:24)
[2019-10-24] MEDS: LACTOBACILLUS RHAMNOSUS GG 1 EACH CAP PO SCH (10:24)
[2019-10-24] MEDS: FERROUS SULFATE 325 MG TABEC PO SCH ×2 (10:25→17:00)
--- NOTE | 2019-10-24 11:05 | NUR ---
Safety And Skill Based Pay Manager Note: I called and spoke with Shaila from [facility] (this program offers services to patients at no cost, their goal is to help keep patients safely at home after a hospital stay). I faxed referral to [facility]. Shaila stated they can provide services for patient, however, need authorization from [facility]. I faxed referral to [facility]. Addendum: 11/01/19 at 1010 by Deja MANCUSO Safety And Skill Based Pay Manager Note: Per Shaila from [facility] , patient was seen by their staff at home on 10/26/19.
--- NOTE | 2019-10-24 12:30 | NUR ---
JOHN IS RESTING IN BED CONCERNED ABOUT DISCHARGE. PER CASE MANAGEMENT NOTE THERE IS PENDING DOCUMENTATION FOR [facility] REQUEST TO HELP OUT WITH MEDICAL SERVICES POST-DISCHARGE. PATIENT TOLERATED BREAKFAST. BED IS IN LOW POSITION, CALL LIGHT ON AND WITHIN REACH, IV FLUID NS RUNNING AT 80 ML/HR. WILL CONTINUE TO MONITOR.
--- NOTE | 2019-10-24 15:00 | NUR ---
DISCHARGE ORDER IN PER MD, PATIENT IS AAOX4 AND VERBALIZES READINESS FOR DISCHARGE, SHE REQUESTS THAT HER PHONE BE CHARGED SO SHE CAN ARRANGE FOR PICKUP. PAIN MEDICATIONS GIVEN FOR ABDOMINAL PAIN WHICH RADIATES TO THE LOWER LEFT LEG. SHE IS IN MEDICALLY STABLE CONDITION, NO COMPLAINTS AT THIS TIME. EDUCATED ON THE IMPORTANCE OF FOLLOW UP CARE WITH HER PCP. BED IS IN LOW POSITION, CALL LIGHT ON AND WITHIN REACH. WILL CONTINUE TO MONITOR.
[2019-10-24 16:00] VITALS: BP 112/78
[2019-10-24 17:17] VITALS: BP 112/58
--- NOTE | 2019-10-24 18:52 | NUR ---
PT ALERT AND ORIENTED. RESTING IN BED. DISCHARGE INSTRUCTIONS GIVEN. VERBALIZED UNDERSTANDING. MADE AWARE OF FOLLOW UP WITH WITH DR. ZAYDA MONTGOMERY. VERBALIZED UNDERSTANDING. IV CANNULA REMOVED. NO BLEEDING NOTED FROM THE SITE. SECURED SITE WITH DRESSING. ID BAND REMOVED. CALLED SECURITY TO BRING HER BELONGINGS AND EXTRA PANTS IF AVAILABLE FOR PATIENT. PATIENT'S PHONE IS CHARGING, [employer]ER[employer] MARKETING SPECIALIST AWARE. ENDORSED TO ASSIGNED NURSE. PER PATIENT SHE WILL CALL [facility]BER TO GET HOME. UNABLE TO SPEAK TO THE SON. LEFT VOICE MESSAGE TO CALL US BACK. PATIENT MADE AWARE.
--- NOTE | 2019-10-24 19:05 | NUR ---
RECEIVED BEDSIDE REPORT FROM DAY SHIFT NURSE. PATIENT IS AWAKE, ALERT, AND COOPERATIVE. RESPIRATION EVEN UNLABORED ON ROOM AIR. PATIENT IS DISCHARGED TODAY. AWAITING FOR HER RIDE. ALL RESOURCES MATERIAL PACKAGE GIVEN AND SIGNED.
--- NOTE | 2019-10-24 19:20 | NUR ---
PATIENT LEFT THE FACILITY WITH A PRIVATE VEHICLE IN STABLE CONDITION. PATIENT FINAL DESTINATION IS HOME.
== END 2019-10-24 19:20 | disposition home or self-care (01) | DRG 871 ==
LOC: MED 13:18 → MTU 21:12
PROVIDERS: ADMIT General Practice; ATTEND General Practice
DX: A41.9 Sepsis, unspecified organism (principal); G93.41 Metabolic encephalopathy; N39.0 Urinary tract infection, site not specified; I10 Essential (primary) hypertension; E11.65 Type 2 diabetes mellitus with hyperglycemia; G89.4 Chronic pain syndrome; F41.8 Other specified anxiety disorders; M19.90 Unspecified osteoarthritis, unspecified site; D86.9 Sarcoidosis, unspecified; D64.9 Anemia, unspecified; E66.01 Morbid (severe) obesity due to excess calories; Z88.8 Allergy status to other drugs, medicaments and biological substances; Z90.710 Acquired absence of both cervix and uterus; Z91.14 Patient's other noncompliance with medication regimen; Z82.3 Family history of stroke; Z82.49 Family history of ischemic heart disease and other diseases of the circulatory system; Z83.3 Family history of diabetes mellitus; Z80.3 Family history of malignant neoplasm of breast; Z68.36 Body mass index [BMI] 36.0-36.9, adult
CPT/HCPCS: 36415; 51702; 70450; 71045; 80048; 80053; 80305; 81001; 82140; 82272; 82607; 82728; 82746; 82948; 83036; 83540; 83605; 83690; 83735; 83880; 84100; 84443; 85025; 85045; 85610; 85730; 87040; 87081; 87086; 87186; 93005; 93925; 93970; 96372; 99285; G0480; G0482; J0696; J1200; J1630; J1644; J1815; J2001; J2060; J2270; J2405; J7030; J7060; Q0092

== ENCOUNTER 2019-12-08 12:03 | Inpatient (IN) | payer OTHER ==
[~2019-12-08] VITALS: Ht 160 cm; Wt 145.1 kg
[~2019-12-08 12:03] MED LIST changes: -ASPI-1718 PO; +ASPI-1822 PO
[2019-12-08 12:09] VITALS: BP 104/86
[2019-12-08] MEDS ORDERED: NACL 0.9% 1,000 ML IV SCH ×3 (12:13→18:20)
[2019-12-08] MEDS ORDERED: MORPHINE SULFATE 4 MG/ML SYR IVP ONE (12:15)
[2019-12-08] MEDS ORDERED: ONDANSETRON 4 MG/2 ML VIAL IVP ONE (12:15)
[2019-12-08] MEDS ORDERED: ONDANSETRON 4 MG ODT PO ONE (13:05)
[2019-12-08] MEDS ORDERED: MORPHINE SULFATE 4 MG/ML SYR IM ONE (13:05)
[2019-12-08 13:22] LABS: BASOPHILS # (AUTO) 0.1 K/uL (0.00-0.22); BASOPHILS % (AUTO) 0.9 % (0.0-2.0); EOSINOPHILS # (AUTO) 0.1 K/uL (0-0.4); EOSINOPHILS % (AUTO) 1.1 % (0.0-4.0); HEMATOCRIT 32.9 % (36-48); LYMPHOCYTES # (AUTO) 1.5 K/uL (2.5-16.5); LYMPHOCYTES % (AUTO) 14.8 % (20.5-51.1); MEAN CORPUSCULAR HEMOGLOBIN 26 pg (27-31); MEAN CORPUSCULAR HGB CONC 31 g/dL (33-37); MEAN CORPUSCULAR VOLUME 86.6 fL (80-94); MONOCYTES # (AUTO) 0.9 K/uL (0.8-1.0); MONOCYTES % (AUTO) 8.3 % (1.7-9.3); NEUTROPHILS # (AUTO) 7.7 K/uL (1.8-7.7); NEUTROPHILS % (AUTO) 74.9 % (42.2-75.2); PLATELET COUNT (AUTO) 279 K/uL (140-450); RED CELL DISTRIBUTION WIDTH 18.7 % (11.6-13.7); WHITE BLOOD COUNT (AUTO) 10.3 K/uL (4.8-10.8)
[2019-12-08 14:44] LABS: ALBUMIN 3.7 g/dL (3.4-5.0); ANION GAP 22.6 (8-16); CARBON DIOXIDE 19.3 mmol/L (21-32); TOTAL BILIRUBIN 0.2 mg/dL (0.0-1.0)
[2019-12-08 14:49] LABS: CREATININE 9.1 mg/dL (0.6-1.3); POTASSIUM 6.9 mmol/L (3.5-5.1)
[2019-12-08] MEDS ORDERED: SODIUM POLYSTYRENE 15 GM/60 ML UDBTL PO ONE (15:00)
[2019-12-08] MEDS ORDERED: NACL 0.9% 1,000 ML IV ONE (15:45)
[2019-12-08] MEDS ORDERED: ACETAMINOPHEN 325 MG TAB PO PRN (16:15)
[2019-12-08] MEDS ORDERED: ONDANSETRON 4 MG/2 ML VIAL IVP PRN (16:15)
[2019-12-08] MEDS ORDERED: CALCIUM GLUCONATE 10% 1,000 MG in NACL 0.9% 50 ML IV SCH (16:25)
[2019-12-08] MEDS ORDERED: GABA250S1 PO ×2 (16:33→19:45)
[2019-12-08 16:57] LABS: FREE T4 (FREE THYROXINE) 0.61 ng/dL (0.76-1.46); MAGNESIUM 2.6 mg/dL (1.8-2.4); THYROID STIMULATING HORMONE 0.61 uIU/mL (0.34-3.74)
[2019-12-08] MEDS: NACL 0.9% 1,000 ML IV SCH (17:52)
[2019-12-08] MEDS ORDERED: INSULIN REGULAR, HUMAN 100 UNIT/ML VIAL IVP SCH (18:00)
[2019-12-08] MEDS ORDERED: DEXTROSE 50% 50 ML SYR IVP SCH (18:00)
[2019-12-08] MEDS ORDERED: ALBUTEROL 0.083% 2.5 MG/3 ML NEBU INH SCH (18:15)
[2019-12-08 18:20] LABS: PHOSPHORUS 9.5 mg/dL (2.5-4.9)
[2019-12-08] MEDS ORDERED: ASPI-1822 PO (19:45)
[2019-12-08] MEDS ORDERED: DEXTROSE 50% 50 ML SYR IVP PRN (19:55)
[2019-12-08] MEDS ORDERED: oxyCODONE/APAP 5/325 MG 1 TAB TAB PO SCH (19:55)
[2019-12-08] MEDS ORDERED: INSULIN LISPRO SLIDING SCALE 100 UNITS/ML VIAL SUBQ PRN (19:55)
[2019-12-08 20:00] VITALS: BP 67/25
[2019-12-08 20:02] LABS: ANION GAP 18.2 (8-16); CARBON DIOXIDE 22.8 mmol/L (21-32)
[2019-12-08 20:03] LABS: PROTHROMBIN TIME 10.9 secs (10.8-13.4)
[2019-12-08 20:06] LABS: CREATININE 8.2 mg/dL (0.6-1.3)
[2019-12-08] MEDS ORDERED: INSULIN NPH HUM/REG INSULIN HM 100 UNIT/ML 10 ML VIAL SUBQ ONE (20:30)
[2019-12-08] MEDS ORDERED: BLOOD GLUCOSE MONITORING 1 DEV DEV FS SCH (21:00)
[2019-12-08] MEDS: DOCUSATE SODIUM 100 MG GELCAP PO SCH (21:27)
[2019-12-08] MEDS: BLOOD GLUCOSE MONITORING 1 DEV DEV FS SCH (21:30)
[2019-12-08] MEDS ORDERED: SODIUM BICARBONATE 8.4% 50 MEQ/50 ML VIAL ONE (22:36)
[2019-12-08] MEDS: SODIUM BICARBONATE 8.4% 50 MEQ in NACL 0.45% 1,000 ML IV SCH (22:50)
[2019-12-08 22:59] LABS: BILIRUBIN,URINE NEGATIVE (NEGATIVE); BLOOD, URINE TRACE-I (NEGATIVE); COLOR,URINE YELLOW (YELLOW); LEUKOCYTE ESTERASE ,URINE NEGATIVE (NEGATIVE); NITRITE, URINE NEGATIVE (NEGATIVE); UGLUCOSE NEGATIVE (NEGATIVE)
[2019-12-08 23:06] LABS: BARBITURATE, URINE NEG. ng/ml (NEG <=200); BENZODIAZEPINE, URINE NEG. ng/mL (NEG <=200); CANNABINOID, URINE NEG. ng/mL (NEG <=50); COCAINE, URINE NEG. ng/mL (NEG <=300); OPIATE, URINE NEG. ng/mL (NEG <=2000); PHENCYCLIDINE SCREEN,URINE NEG. ng/mL (NEG <=25)
[2019-12-08 23:17] LABS: APPEARANCE,URINE SLIGHTLY HAZY (CLEAR)
[2019-12-08 23:20] LABS: RBC,URINE 0-5 /HPF (0-5); URINE AMORPHOUS URATE 1+ /HPF (None Seen); WBC,URINE 0-5 /HPF (0-5); YEAST,URINE Rare /HPF (None Seen)
[2019-12-09] VITALS: BP 83/45
[2019-12-09] MEDS ORDERED: NACL 0.9% 500 ML IV ONE (00:10)
[2019-12-09] MEDS ORDERED: LORazepam 2 MG/ML VIAL IVP ONE (00:10)
[2019-12-09 00:11] LABS: ANION GAP 15.8 (8-16); POTASSIUM 5.8 mmol/L (3.5-5.1)
[2019-12-09 00:13] LABS: CREATININE 7.1 mg/dL (0.6-1.3)
[2019-12-09 04:00] VITALS: BP 121/63
[2019-12-09] MEDS: SODIUM BICARBONATE 8.4% 50 MEQ in NACL 0.45% 1,000 ML IV SCH ×3 (04:44→21:47)
[2019-12-09 07:39] LABS: ANION GAP 14.5 (8-16); POTASSIUM 5.5 mmol/L (3.5-5.1)
[2019-12-09 07:41] LABS: CREATININE 5.3 mg/dL (0.6-1.3)
[2019-12-09 07:44] LABS: BASOPHILS # (AUTO) 0.1 K/uL (0.00-0.22); BASOPHILS % (AUTO) 0.8 % (0.0-2.0); EOSINOPHILS # (AUTO) 0.2 K/uL (0-0.4); EOSINOPHILS % (AUTO) 2.3 % (0.0-4.0); HEMATOCRIT 29.2 % (36-48); HEMOGLOBIN 9.1 g/dL (12.0-16.0); LYMPHOCYTES # (AUTO) 1.8 K/uL (2.5-16.5); LYMPHOCYTES % (AUTO) 25.2 % (20.5-51.1); MEAN CORPUSCULAR HEMOGLOBIN 26 pg (27-31); MEAN CORPUSCULAR HGB CONC 31 g/dL (33-37); MEAN CORPUSCULAR VOLUME 84.3 fL (80-94); MONOCYTES # (AUTO) 0.6 K/uL (0.8-1.0); MONOCYTES % (AUTO) 8.4 % (1.7-9.3); NEUTROPHILS # (AUTO) 4.5 K/uL (1.8-7.7); NEUTROPHILS % (AUTO) 63.3 % (42.2-75.2); PLATELET COUNT (AUTO) 208 K/uL (140-450); RED BLOOD CELL COUNT(AUTO) 3.47 MIL/uL (4.20-5.40); RED CELL DISTRIBUTION WIDTH 18.3 % (11.6-13.7)
[2019-12-09 07:45] LABS: MAGNESIUM 2.2 mg/dL (1.8-2.4); PHOSPHORUS 6.3 mg/dL (2.5-4.9)
[2019-12-09] MEDS: BLOOD GLUCOSE MONITORING 1 DEV DEV FS SCH ×4 (07:49→21:27)
[2019-12-09 08:00] VITALS: BP 106/63
[2019-12-09] MEDS: SERTRALINE 50 MG TAB PO SCH (08:35)
[2019-12-09] MEDS: DOCUSATE SODIUM 100 MG GELCAP PO SCH ×2 (08:35→21:00)
[2019-12-09] MEDS: ASPIRIN 81 MG TAB.CHEW PO SCH (08:35)
[2019-12-09] MEDS: LISINOPRIL 10 MG TAB PO SCH (08:38)
[2019-12-09] MEDS ORDERED: GABAPENTIN 250 MG PO SCH (09:00)
[2019-12-09] MEDS: oxyCODONE/APAP 5/325 MG 1 TAB TAB PO SCH ×2 (09:12→15:06)
[2019-12-09 12:00] VITALS: BP 99/54
[2019-12-09] MEDS ORDERED: FLUCONAZOLE 100 MG TAB PO SCH (12:00)
[2019-12-09 12:31] LABS: ANION GAP 13.1 (8-16); CARBON DIOXIDE 25.4 mmol/L (21-32); POTASSIUM 5.5 mmol/L (3.5-5.1)
[2019-12-09 12:34] LABS: CREATININE 4.2 mg/dL (0.6-1.3)
[2019-12-09] MEDS ORDERED: DEXTROSE 50% 50 ML SYR IVP SCH (15:45)
[2019-12-09] MEDS ORDERED: INSULIN LISPRO 100 UNITS/ML VIAL SUBQ SCH (15:45)
[2019-12-09 16:00] VITALS: BP 90/51
[2019-12-09] MEDS ORDERED: CALCIUM GLUCONATE 10% 1,000 MG in NACL 0.9% 50 ML IV SCH (16:00)
[2019-12-09] MEDS: NACL 0.9% 1,000 ML IV SCH (16:11)
[2019-12-09 19:22] LABS: ANION GAP 10.4 (8-16); CARBON DIOXIDE 29.1 mmol/L (21-32); CREATININE 3.1 mg/dL (0.6-1.3); POTASSIUM 5.5 mmol/L (3.5-5.1)
[2019-12-09 20:00] VITALS: BP 100/61
[2019-12-09] MEDS ORDERED: ALBUTEROL SULFATE/IPRATROPIU 3 ML SOL IH SCH (20:05)
[2019-12-09] MEDS ORDERED: SODIUM POLYSTYRENE 15 GM/60 ML UDBTL PO SCH (20:05)
[2019-12-09] MEDS: busPIRone 5 MG TAB PO SCH (21:00)
[2019-12-09] MEDS: GABAPENTIN 300 MG CAP PO SCH (21:45)
[2019-12-09] MEDS: oxyCODONE/APAP 5/325 MG 1 TAB TAB PO PRN (21:46)
[2019-12-10] VITALS: BP 114/59
[2019-12-10 04:00] VITALS: BP 100/47
[2019-12-10] MEDS: oxyCODONE/APAP 5/325 MG 1 TAB TAB PO PRN ×4 (05:46→20:15)
[2019-12-10] MEDS: SODIUM BICARBONATE 8.4% 50 MEQ in NACL 0.45% 1,000 ML IV SCH ×2 (05:56→14:43)
[2019-12-10] MEDS: BLOOD GLUCOSE MONITORING 1 DEV DEV FS SCH ×4 (06:16→20:14)
[2019-12-10 07:51] LABS: BASOPHILS % (AUTO) 0.8 % (0.0-2.0); EOSINOPHILS # (AUTO) 0.1 K/uL (0-0.4); EOSINOPHILS % (AUTO) 1.9 % (0.0-4.0); HEMATOCRIT 27.7 % (36-48); HEMOGLOBIN 8.7 g/dL (12.0-16.0); LYMPHOCYTES # (AUTO) 1.7 K/uL (2.5-16.5); LYMPHOCYTES % (AUTO) 25.9 % (20.5-51.1); MEAN CORPUSCULAR HEMOGLOBIN 26 pg (27-31); MEAN CORPUSCULAR HGB CONC 31 g/dL (33-37); MEAN CORPUSCULAR VOLUME 84.1 fL (80-94); MONOCYTES # (AUTO) 0.7 K/uL (0.8-1.0); MONOCYTES % (AUTO) 10.8 % (1.7-9.3); NEUTROPHILS % (AUTO) 60.6 % (42.2-75.2); PLATELET COUNT (AUTO) 184 K/uL (140-450); RED BLOOD CELL COUNT(AUTO) 3.29 MIL/uL (4.20-5.40); RED CELL DISTRIBUTION WIDTH 17.8 % (11.6-13.7); WHITE BLOOD COUNT (AUTO) 6.5 K/uL (4.8-10.8)
[2019-12-10 08:00] VITALS: BP 91/41
[2019-12-10 08:00] LABS: CREATININE 2.1 mg/dL (0.6-1.3)
[2019-12-10 08:11] LABS: MAGNESIUM 1.5 mg/dL (1.8-2.4); PHOSPHORUS 2.6 mg/dL (2.5-4.9)
[2019-12-10] MEDS: ASPIRIN 81 MG TAB.CHEW PO SCH (08:51)
[2019-12-10] MEDS: busPIRone 5 MG TAB PO SCH ×2 (08:51→20:16)
[2019-12-10] MEDS: GABAPENTIN 300 MG CAP PO SCH ×2 (08:51→20:16)
[2019-12-10] MEDS: SERTRALINE 50 MG TAB PO SCH (08:52)
[2019-12-10] MEDS: DOCUSATE SODIUM 100 MG GELCAP PO SCH ×2 (08:53→20:16)
[2019-12-10] MEDS: LISINOPRIL 10 MG TAB PO SCH (08:53)
[2019-12-10] MEDS ORDERED: MAGNESIUM OXIDE 400 MG TAB PO SCH (10:30)
[2019-12-10] MEDS ORDERED: MAG SULF 2000 MG/WATER PREMIX 50 ML IV SCH (10:30)
[2019-12-10 12:00] VITALS: BP 95/60
[2019-12-10 16:00] VITALS: BP 96/55
[2019-12-10] MEDS: NACL 0.9% 1,000 ML IV SCH (16:11)
[2019-12-10 20:00] VITALS: BP 103/60
[2019-12-11] VITALS: BP 110/60
[2019-12-11] MEDS: SODIUM BICARBONATE 8.4% 50 MEQ in NACL 0.45% 1,000 ML IV SCH (00:21)
[2019-12-11 04:00] VITALS: BP 99/59
[2019-12-11] MEDS: oxyCODONE/APAP 5/325 MG 1 TAB TAB PO PRN ×4 (04:44→21:08)
[2019-12-11 06:18] LABS: BASOPHILS % (AUTO) 0.6 % (0.0-2.0); EOSINOPHILS # (AUTO) 0.2 K/uL (0-0.4); EOSINOPHILS % (AUTO) 4.2 % (0.0-4.0); HEMATOCRIT 27.8 % (36-48); HEMOGLOBIN 8.6 g/dL (12.0-16.0); LYMPHOCYTES # (AUTO) 2.1 K/uL (2.5-16.5); LYMPHOCYTES % (AUTO) 36.3 % (20.5-51.1); MEAN CORPUSCULAR HEMOGLOBIN 26 pg (27-31); MEAN CORPUSCULAR HGB CONC 31 g/dL (33-37); MEAN CORPUSCULAR VOLUME 83.6 fL (80-94); MONOCYTES # (AUTO) 0.5 K/uL (0.8-1.0); MONOCYTES % (AUTO) 7.8 % (1.7-9.3); NEUTROPHILS # (AUTO) 2.9 K/uL (1.8-7.7); NEUTROPHILS % (AUTO) 51.1 % (42.2-75.2); PLATELET COUNT (AUTO) 179 K/uL (140-450); RED BLOOD CELL COUNT(AUTO) 3.33 MIL/uL (4.20-5.40); RED CELL DISTRIBUTION WIDTH 17.9 % (11.6-13.7); WHITE BLOOD COUNT (AUTO) 5.8 K/uL (4.8-10.8)
[2019-12-11] MEDS: BLOOD GLUCOSE MONITORING 1 DEV DEV FS SCH (06:42)
[2019-12-11 06:50] LABS: ANION GAP 7.2 (8-16); CARBON DIOXIDE 32.4 mmol/L (21-32); CREATININE 1.5 mg/dL (0.6-1.3); POTASSIUM 4.6 mmol/L (3.5-5.1)
[2019-12-11 06:54] LABS: MAGNESIUM 1.3 mg/dL (1.8-2.4); PHOSPHORUS 2.3 mg/dL (2.5-4.9)
[2019-12-11 08:00] VITALS: BP 143/59
[2019-12-11] MEDS: ASPIRIN 81 MG TAB.CHEW PO SCH (08:34)
[2019-12-11] MEDS: busPIRone 5 MG TAB PO SCH (08:35)
[2019-12-11] MEDS: DOCUSATE SODIUM 100 MG GELCAP PO SCH ×3 (08:36→21:07)
[2019-12-11] MEDS: GABAPENTIN 300 MG CAP PO SCH ×2 (08:37→21:07)
[2019-12-11] MEDS: SERTRALINE 50 MG TAB PO SCH (08:38)
[2019-12-11] MEDS: LISINOPRIL 10 MG TAB PO SCH (08:38)
[2019-12-11] MEDS ORDERED: MAGNESIUM OXIDE 400 MG TAB PO SCH (09:00)
[2019-12-11] MEDS: hydrOXYzine PAMOATE 25 MG CAP PO PRN ×2 (10:52→21:44)
[2019-12-11 12:00] VITALS: BP 129/71
[2019-12-11] MEDS ORDERED: SODIUM PHOS / POTASSIUM PHOS 1 PKT PDR PO SCH (13:00)
[2019-12-11] MEDS: MAG SULF 2000 MG/WATER PREMIX 100 ML IV SCH ×2 (13:17→16:20)
[2019-12-11 16:00] VITALS: BP 120/74
[2019-12-11] MEDS: NACL 0.9% 1,000 ML IV SCH (16:11)
[2019-12-11 20:00] VITALS: BP 119/63
[2019-12-11] MEDS ORDERED: hydrOXYzine HCL 25 MG TAB ONE (21:20)
[2019-12-12] VITALS: BP 90/50
[2019-12-12 04:00] VITALS: BP 124/76
[2019-12-12 06:26] LABS: BASOPHILS % (AUTO) 0.5 % (0.0-2.0); EOSINOPHILS # (AUTO) 0.2 K/uL (0-0.4); EOSINOPHILS % (AUTO) 2.8 % (0.0-4.0); HEMATOCRIT 30.8 % (36-48); HEMOGLOBIN 9.6 g/dL (12.0-16.0); LYMPHOCYTES # (AUTO) 2.1 K/uL (2.5-16.5); LYMPHOCYTES % (AUTO) 29.5 % (20.5-51.1); MEAN CORPUSCULAR HEMOGLOBIN 26 pg (27-31); MEAN CORPUSCULAR HGB CONC 31 g/dL (33-37); MEAN CORPUSCULAR VOLUME 83.6 fL (80-94); MONOCYTES # (AUTO) 0.6 K/uL (0.8-1.0); MONOCYTES % (AUTO) 8.4 % (1.7-9.3); NEUTROPHILS # (AUTO) 4.2 K/uL (1.8-7.7); NEUTROPHILS % (AUTO) 58.8 % (42.2-75.2); PLATELET COUNT (AUTO) 216 K/uL (140-450); RED BLOOD CELL COUNT(AUTO) 3.68 MIL/uL (4.20-5.40); RED CELL DISTRIBUTION WIDTH 17.3 % (11.6-13.7); WHITE BLOOD COUNT (AUTO) 7.2 K/uL (4.8-10.8)
[2019-12-12 06:27] LABS: CARBON DIOXIDE 29.5 mmol/L (21-32); CREATININE 1.3 mg/dL (0.6-1.3); POTASSIUM 4.5 mmol/L (3.5-5.1)
[2019-12-12 06:49] LABS: MAGNESIUM 2.1 mg/dL (1.8-2.4); PHOSPHORUS 3.1 mg/dL (2.5-4.9)
[2019-12-12] MEDS: oxyCODONE/APAP 5/325 MG 1 TAB TAB PO PRN (07:08)
[2019-12-12 08:00] VITALS: BP 110/66
[2019-12-12] MEDS: DOCUSATE SODIUM 100 MG GELCAP PO SCH ×2 (08:51→09:00)
[2019-12-12] MEDS: LISINOPRIL 10 MG TAB PO SCH (08:51)
[2019-12-12] MEDS: GABAPENTIN 300 MG CAP PO SCH (08:51)
[2019-12-12] MEDS: ASPIRIN 81 MG TAB.CHEW PO SCH (08:51)
[2019-12-12] MEDS: SERTRALINE 50 MG TAB PO SCH (08:52)
[2019-12-12 12:00] VITALS: BP 119/72
[2019-12-12] MEDS ORDERED: BUS5 PO (12:01)
[2019-12-12] MEDS ORDERED: GABA-638 PO (12:01)
[2019-12-12] MEDS ORDERED: LISI10TA11 PO (12:01)
== END 2019-12-12 15:05 | disposition home health service (06) | DRG 640 ==
LOC: MED 12:03 → MTU 16:16
PROVIDERS: ADMIT General Practice; ATTEND General Practice
DX: E86.0 Dehydration (principal); N17.0 Acute kidney failure with tubular necrosis; Z68.43 Body mass index [BMI] 50.0-59.9, adult; E87.5 Hyperkalemia; D86.9 Sarcoidosis, unspecified; E66.01 Morbid (severe) obesity due to excess calories; E87.0 Hyperosmolality and hypernatremia; E83.39 Other disorders of phosphorus metabolism; E83.41 Hypermagnesemia; E87.8 Other disorders of electrolyte and fluid balance, not elsewhere classified; G89.4 Chronic pain syndrome; I12.9 Hypertensive chronic kidney disease with stage 1 through stage 4 chronic kidney disease, or unspecified chronic kidney disease; N18.3 Chronic kidney disease, stage 3 (moderate); K76.0 Fatty (change of) liver, not elsewhere classified; E11.22 Type 2 diabetes mellitus with diabetic chronic kidney disease; D63.8 Anemia in other chronic diseases classified elsewhere; E83.42 Hypomagnesemia; Z90.710 Acquired absence of both cervix and uterus; F41.8 Other specified anxiety disorders; Z88.8 Allergy status to other drugs, medicaments and biological substances; Z91.018 Allergy to other foods; Z79.82 Long term (current) use of aspirin; Z79.899 Other long term (current) drug therapy; Z80.3 Family history of malignant neoplasm of breast; Z82.3 Family history of stroke; Z82.49 Family history of ischemic heart disease and other diseases of the circulatory system
CPT/HCPCS: 36415; 71045; 76705; 80048; 80053; 80305; 81001; 82140; 82150; 82948; 83036; 83690; 83735; 83880; 84100; 84439; 84443; 84484; 85025; 85610; 85730; 87081; 87086; 93005; 93970; 96360; 96372; 97161-GP; 99285; J0610; J1644; J1815; J2270; J2405; J3475; J3490; J7030; Q0092; Q0162; Q0177

== ENCOUNTER 2020-05-10 14:49 | Inpatient (IN) | payer OTHER ==
[~2020-05-10] VITALS: Ht 172.7 cm; Wt 132.4 kg
--- NOTE | 2020-05-10 | NUR ---
HGT RE CHECK 91% MORE AWAKEABLE NOW COMPARE SHE WAS - WILL CONT. TO MONITOR - ON TELE MONITOR - SR . O2 SAT WNL .
[2020-05-10] MEDS: BLOOD GLUCOSE MONITORING 1 DEV DEV FS SCH (06:11)
[~2020-05-10 14:49] MED LIST changes: +BUS5 PO; +GABA-638 PO; +LISI10TA11 PO; -LISI30TA6 PO
--- NOTE | 2020-05-10 14:49 | NUR ---
Patient BIBA BLS, transferred to bed 6. RN evaluating patient at bedside.
[2020-05-10 14:57] VITALS: BP 119/84
--- NOTE | 2020-05-10 15:01 | NUR ---
59 YO FEMALE BIBA AND STATES THAT SHE HAS BEEN FEELING WEAKER THAN NORMAL FOR THE PAST FEW DAYS. PT ALSO HAS HX OF CHRONIC LOWER BACK PAIN. NKA PMH- DM, ANXIETY AND DEPRESSION
[2020-05-10] MEDS ORDERED: NACL 0.9% 1,000 ML IV ONE (15:42)
[2020-05-10 17:09] LABS: BASOPHILS # (AUTO) 0.1 K/uL (0.00-0.22); BASOPHILS % (AUTO) 0.8 % (0.0-2.0); EOSINOPHILS # (AUTO) 0.1 K/uL (0-0.4); EOSINOPHILS % (AUTO) 0.7 % (0.0-4.0); HEMATOCRIT 30.6 % (36-48); HEMOGLOBIN 9.4 g/dL (12.0-16.0); LYMPHOCYTES # (AUTO) 2.2 K/uL (2.5-16.5); LYMPHOCYTES % (AUTO) 19.9 % (20.5-51.1); MEAN CORPUSCULAR HEMOGLOBIN 27 pg (27-31); MEAN CORPUSCULAR HGB CONC 31 g/dL (33-37); MEAN CORPUSCULAR VOLUME 85.9 fL (80-94); MONOCYTES % (AUTO) 8.6 % (1.7-9.3); NEUTROPHILS # (AUTO) 7.7 K/uL (1.8-7.7); PLATELET COUNT (AUTO) 239 K/uL (140-450); RED BLOOD CELL COUNT(AUTO) 3.57 MIL/uL (4.20-5.40); RED CELL DISTRIBUTION WIDTH 18.4 % (11.6-13.7); WHITE BLOOD COUNT (AUTO) 11.1 K/uL (4.8-10.8)
[2020-05-10 17:11] LABS: ALBUMIN 3.8 g/dL (3.4-5.0); ANION GAP 27.7 (8-16); CARBON DIOXIDE 15.4 mmol/L (21-32); TOTAL BILIRUBIN 0.5 mg/dL (0.0-1.0)
--- NOTE | 2020-05-10 17:15 | NUR ---
PT LAYING IN BED ASLEEP. EASILY AROUSEABLE TO VOICE. PT IS CONFUSED AT THIS TIME.
[2020-05-10 17:16] LABS: CREATININE 11.6 mg/dL (0.6-1.3); POTASSIUM 6.1 mmol/L (3.5-5.1)
[2020-05-10 17:31] LABS: PROTHROMBIN TIME 10.4 secs (10.8-13.4)
[2020-05-10] MEDS ORDERED: SODIUM ZIRCONIUM CYCLOSILICATE 10 GM POWD.PACK PO ONE (17:35)
[2020-05-10] MEDS ORDERED: ZOLPIDEM 5 MG TAB PO PRN (18:05)
[2020-05-10] MEDS ORDERED: DOCUSATE SODIUM 100 MG GELCAP PO PRN (18:05)
[2020-05-10] MEDS ORDERED: DEXTROSE 50% 50 ML SYR IVP ONE ×2 (18:20→18:40)
[2020-05-10] MEDS ORDERED: INSULIN REGULAR, HUMAN 100 UNIT/ML VIAL IVP ONE (18:20)
[2020-05-10] MEDS ORDERED: SODIUM BICARBONATE 8.4% 50 MEQ in NACL 0.45% 1,000 ML IV ONE (18:20)
[2020-05-10] MEDS ORDERED: CALCIUM GLUCONATE 10% 1000 MG/10 ML VIAL IVP ONE (18:20)
--- NOTE | 2020-05-10 18:20 | NUR ---
ROLLE CATH INSERTED. 16FR.
[2020-05-10 18:31] LABS: FREE T4 (FREE THYROXINE) 0.56 ng/dL (0.76-1.46); MAGNESIUM 2.9 mg/dL (1.8-2.4)
[2020-05-10 18:39] LABS: BILIRUBIN,URINE NEGATIVE (NEGATIVE); BLOOD, URINE NEGATIVE (NEGATIVE); COLOR,URINE DARK YELLOW (YELLOW); LEUKOCYTE ESTERASE ,URINE NEGATIVE (NEGATIVE); NITRITE, URINE NEGATIVE (NEGATIVE); UGLUCOSE NEGATIVE (NEGATIVE)
[2020-05-10 18:45] LABS: APPEARANCE,URINE CLEAR (CLEAR)
--- NOTE | 2020-05-10 18:48 | NUR ---
700ML OF URINE IN ROLLE BAG AT THIS TIME
--- NOTE | 2020-05-10 18:51 | NUR ---
PT GLUCOSE WAS 54. ERMD MADE AWARE AND WAS TOLD TO GIVE ONE DEXTROSE AND RECHECK GLUCOSE BEFORE GIVING THE REST OF THE MEDS.
[2020-05-10 18:56] LABS: CHOL/HDL RATIO 6.4 (1-4.5)
[2020-05-10 18:59] LABS: BARBITURATE, URINE NEGATIVE ng/ml (NEG <=200); BENZODIAZEPINE, URINE NEGATIVE ng/mL (NEG <=200); CANNABINOID, URINE NEGATIVE ng/mL (NEG <=50); COCAINE, URINE NEGATIVE ng/mL (NEG <=300); OPIATE, URINE NEGATIVE ng/mL (NEG <=2000); PHENCYCLIDINE SCREEN,URINE NEGATIVE ng/mL (NEG <=25)
[2020-05-10] MEDS ORDERED: CALCIUM GLUCONATE 10% 1000 MG/10 ML VIAL ONE (19:25)
[2020-05-10] MEDS ORDERED: SODIUM BICARBONATE 8.4% PFS 50 MEQ/50 ML SYR IVP ONE (19:30)
--- NOTE | 2020-05-10 19:37 | NUR ---
Pt report RECEIVED FROM KAYLA OVALLES. Transfer of care at this time.
--- NOTE | 2020-05-10 20:23 | NUR ---
ACCU CHECK 96
--- NOTE | 2020-05-10 20:45 | NUR ---
LEFT MESSAGE FOR REGARDING BP BEING 80/44 .
--- NOTE | 2020-05-10 20:46 | NUR ---
PHONED BACK AND GAVE VERBAL T/O ORDER FOR 500CC BOLUS, NOTED AND CARRIED OUT.
--- NOTE | 2020-05-10 21:00 | NUR ---
BP NOW 90/36, BOLUS STILL RUNNNG, PT IN [place] POSITION, WILL CONTINUE TO MONITOR
[2020-05-10] MEDS ORDERED: INSULIN LISPRO SLIDING SCALE 100 UNITS/ML VIAL SUBQ PRN (21:15)
[2020-05-10] MEDS ORDERED: DEXTROSE 50% 50 ML SYR IVP PRN (21:15)
[2020-05-10] MEDS ORDERED: NACL 0.9% 500 ML IV SCH ×4 (21:20→22:45)
--- NOTE | 2020-05-10 21:20 | NUR ---
BP SLOWING INCREASING, NOW 88/44
--- NOTE | 2020-05-10 21:35 | NUR ---
Patient will be admitted to care of . Admited to [facility]. Will go to room 111B. Belongings list completed. Report to KAYLA WHITE.
[2020-05-10 21:51] VITALS: BP 70/40
--- NOTE | 2020-05-10 21:51 | NUR ---
RECEIVED PT FROM ER / RNEY - TRANSFER TO BED BY 3 PERSON MANUALLY LIFT . PT IS TOO SLEEPY , BUT AWAKEABLE - WHEN AWAKE SHE CAN FOLLOW SIMPLE COMMANDS . NID - RA - O2 SAT 97% . IV SITES INTACT AND PATENT ,W/ ON GOING IVF W/ NA BICARB . W/ FC CONNECTING TO URINE BAG DRAINING CLEAR U.O . ADMISSION ASSESSMENT - DONE . PLAN OF CARE DISCUSSED - VERBALIZE UNDERSTANDING BUT NEEDS RE INFORCEMENT - PT IS TOO SLEEPY . WILL CONT. TO MONITOR .
--- NOTE | 2020-05-10 22:10 | NUR ---
BP 7O/50 - ANOTHER BOLUS OF NSS 500ML STAT T.O BY DR PONCE - PT ALREADY GOT ONE BOLUS AT THE ER BEFORE SENDING PT TO THE FLOOR - PER ER NURSE THE PT HGT IS 90 - D 50/50 GIVEN AT ER . RE CHECK HGT - 54 .WILL REFER TO DOCTOR.
--- NOTE | 2020-05-10 22:30 | NUR ---
BP RE CHECK 80/45 - IV BOLUS STILL ONGOING - AWAKEABLE - ON TELE - SR - FOR CLOSELY WATCH .
--- NOTE | 2020-05-10 22:37 | NUR ---
HGT 54 - D 5050 / IV GIVEN T.O BY DR. PONCE - WILL CONT. TO MONITOR.
--- NOTE | 2020-05-10 23:00 | NUR ---
BP RE CHECKED - WILL CONT. TO MONITOR - WILL REFER TO DR. CHAMBERS ORDERED BY DR. PONCE. Addendum: 05/11/20 at 0404 by Kelly Agarwal RN DR CHAMBERS CALL BACK - CHANGE THE PRESENT IVF TO D5 HALF NSS RUN FOR 125CC/HR - WILL CARRY OUT . Addendum: 05/11/20 at 0406 by Kelly Agarwal RN DR Emily CHAMBERS ORDERED REG . DIET ONCE PT IS FULLY AWAKE . Addendum: 05/11/20 at 0738 by Kelly Agarwal RN T RE CHECK - 91 - WILL CONT. TO MONITOR.
--- NOTE | 2020-05-10 23:12 | NUR ---
INFORM DR PONCE ABOUT THE IVF ORDER OF PAID SEARCH SPECIALIST - SHE AGREE TO CARRY OUT - AND SHE SAID HOOK THE IVF ORDERED BY DR. CHAMBERS ONCE THE PRESENT IVF W/ NA BICARB CONSUMED - WILL CARRY OUT .
[2020-05-10] MEDS ORDERED: DEXT 5% / NACL 0.45% 1,000 ML IV SCH ×2 (23:15→23:55)
[2020-05-10] MEDS ORDERED: DEXT 5% /NACL 0.9% 1,000 ML IV SCH (23:35)
--- NOTE | 2020-05-11 01:00 | NUR ---
BP RE CHECK 90/54 - ON TELE - SR - AAOX4 - O2 SAT WNL - FOR CLOSELY WATCH . - GOOD U.O . 600 CC
[2020-05-11 01:41] LABS: ANION GAP 26.9 (8-16); CARBON DIOXIDE 15.3 mmol/L (21-32)
[2020-05-11 01:46] LABS: CREATININE 11.5 mg/dL (0.6-1.3); POTASSIUM 6.2 mmol/L (3.5-5.1)
--- NOTE | 2020-05-11 02:24 | NUR ---
RELAY DR. MENDEZ - LATEST BUN , CRE AND K+ RESULT AND LATEST BP - NO FURTHER ORDERS MADE .
--- NOTE | 2020-05-11 03:00 | NUR ---
BP RE CHECK - 90/60 - AWAKEABLE - AAOX4 , ON TELE -SR - O2 SAT WNL - ADD ANOTHER BLANKET - MAKE PT . WARM . FOR CLOSELY WATCH .
[2020-05-11] MEDS: DEXT 5% / NACL 0.45% 1,000 ML IV SCH ×4 (03:30→23:58)
[2020-05-11 04:00] VITALS: BP 88/59
--- NOTE | 2020-05-11 05:00 | NUR ---
MADE ROUNDS , BP RE CHECK - 91/58 - ON TELE - SR - NO COMPLAIN MADE , SLEEPY - AWAKEABLE - AA0X4 , O2 SAT WNL . FOR CLOSELY WATCH .
--- NOTE | 2020-05-11 06:00 | NUR ---
MADE ROUNDS , AWAKEABLE , AAOX4 WHEN AWAKE , FOLLOW SIMPLE COMMAND . ADDRESS NEEDS , SR ON TELE MONITOR . NO COMPLAIN MADE , O2 SAT WNL . BP 92/51 - MAP ABOVE 60 . HGT 76 - CHARGE UPDATES ABOUT THE PT'S LATEST STATUS . WILL CONT. TO MONITOR .
--- NOTE | 2020-05-11 06:38 | NUR ---
PATIENT HAS BEEN SCREENED AND CATEGORIZED HIGH NUTRITION RISK. PATIENT WILL BE SEEN WITHIN 1-2 DAYS OF ADMISSION. 05/12/20-05/13/20 ALEJANDRO KAY MS, RDN
[2020-05-11 06:56] LABS: BASOPHILS % (AUTO) 0.4 % (0.0-2.0); EOSINOPHILS # (AUTO) 0.1 K/uL (0-0.4); HEMATOCRIT 29.6 % (36-48); HEMOGLOBIN 9.3 g/dL (12.0-16.0); LYMPHOCYTES # (AUTO) 2.2 K/uL (2.5-16.5); LYMPHOCYTES % (AUTO) 23.6 % (20.5-51.1); MEAN CORPUSCULAR HEMOGLOBIN 27 pg (27-31); MEAN CORPUSCULAR HGB CONC 31 g/dL (33-37); MEAN CORPUSCULAR VOLUME 86.2 fL (80-94); MONOCYTES # (AUTO) 0.7 K/uL (0.8-1.0); MONOCYTES % (AUTO) 7.5 % (1.7-9.3); NEUTROPHILS # (AUTO) 6.4 K/uL (1.8-7.7); NEUTROPHILS % (AUTO) 67.5 % (42.2-75.2); PLATELET COUNT (AUTO) 223 K/uL (140-450); RED BLOOD CELL COUNT(AUTO) 3.43 MIL/uL (4.20-5.40); RED CELL DISTRIBUTION WIDTH 18.3 % (11.6-13.7); WHITE BLOOD COUNT (AUTO) 9.4 K/uL (4.8-10.8)
--- NOTE | 2020-05-11 07:15 | NUR ---
RECEIVED PATIENT FROM BLAST FURNACE AUXILIARIES SUPERVISOR NURSE FOR CONTINUITY OF CARE. PATIENT IS ASLEEP AND IN BED, EASILY AWAKEN - WHEN AWAKE SHE CAN FOLLOW SIMPLE COMMANDS . RESPIRATIONS EVEN AND UNLABORED, ON ROOM AIR WITH SAO2 AT 95%. IV SITES INTACT AND PATENT ,W/ ON GOING IVF INFUSING PER ORDERS. ROLLE CATHETER IN PLACE DRAINING CLEAR U.O. PLAN OF CARE DISCUSSED, VERBALIZE UNDERSTANDING. SAFETY PRECAUTIONS IN PLACE. NO SIGNS OF DISTRESS NOTED. CALL LIGHT WITHIN REACH. WILL CONTINUE TO MONITOR.
--- NOTE | 2020-05-11 07:23 | NUR ---
ENDORSED TO AM SHIFT - PT AWAKEABLE , FOLLOW SIMPLE COMMAND . ON TELE - SR , NO COMPLAIN MADE , O2 SAT WNL . LATEST BP 92/58 - MAP ABOVE 60 - ON REGULAR DIET WHEN FULLY AWAKE .
[2020-05-11 07:27] LABS: ANION GAP 22.1 (8-16); CARBON DIOXIDE 17.6 mmol/L (21-32); POTASSIUM 5.7 mmol/L (3.5-5.1)
[2020-05-11 08:00] VITALS: BP 87/37
[2020-05-11 08:22] LABS: CREATININE 10.6 mg/dL (0.6-1.3)
[2020-05-11 08:42] LABS: POTASSIUM 5.6 mmol/L (3.5-5.1)
[2020-05-11] MEDS: GABAPENTIN 300 MG CAP PO SCH ×2 (09:00→21:00)
[2020-05-11] MEDS: lisinopriL 10 MG TAB PO SCH (09:00)
[2020-05-11] MEDS: SERTRALINE 50 MG TAB PO SCH (09:14)
[2020-05-11] MEDS: busPIRone 5 MG TAB PO SCH ×2 (09:14→21:00)
--- NOTE | 2020-05-11 09:14 | NUR ---
MORNING MEDICATIONS GIVEN. NO SIGNS OF DISTRESS NOTED. LISINOPRIL AND GABAPENTIN HELD D/T LOW BP OF 87/37. WILL CONTINUE TO MONITOR.
[2020-05-11 09:15] LABS: PHOSPHORUS 11.3 mg/dL (2.5-4.9)
[2020-05-11] MEDS ORDERED: NACL 0.9% 1,000 ML IV SCH (09:39)
--- NOTE | 2020-05-11 10:00 | NUR ---
NEW ORDERS TO GIVE 1L NS BOLUS FOR LOW BP. WILL FOLLOW THROUGH. WILL CONTINUE TO MONITOR.
--- NOTE | 2020-05-11 10:30 | NUR ---
IV SITE INFILTRATED. ATTEMPTED TO REINSERT IV BUT UNSUCCESSFUL. WILL REPORT TO MD. WILL CONTINUE TO MONITOR.
--- NOTE | 2020-05-11 11:00 | NUR ---
NEW ORDERS FOR PICC LINE PLACEMENT FROM DR. ALVARADO. WILL FOLLOW THROUGH. WILL CONTINUE TO MONITOR.
[2020-05-11] MEDS: BLOOD GLUCOSE MONITORING 1 DEV DEV FS SCH ×3 (11:23→21:00)
[2020-05-11 12:00] VITALS: BP 79/48
--- NOTE | 2020-05-11 13:10 | NUR ---
CONTACTED ER FOR POSSIBLE IV INSERTION. UNABLE TO START IV NOW, WILL FOLLOW UP. WILL CONTINUE TO MONITOR.
--- NOTE | 2020-05-11 13:20 | NUR ---
SPOKE TO DR. ALVARADO ABOUT CONSISTENTLY LOW BP 74/48. NEW ORDERS FOR MIDODRINE. WILL FOLLOW THROUGH.
[2020-05-11] MEDS ORDERED: MIDODRINE 5 MG TAB PO SCH (13:58)
--- NOTE | 2020-05-11 13:58 | NUR ---
MIDODRINE GIVEN FOR LOW BP. NO SIGNS OF DISTRESS NOTED. WILL CONTINUE TO MONITOR.
--- NOTE | 2020-05-11 14:46 | NUR ---
CALLED ICU FOR POSSIBLE IV INSERTION, UNABLE TO INSERT IV OF THE MOMENT. WILL FOLLOW UP IN AN HOUR. WILL CONTINUE TO MONITOR.
--- NOTE | 2020-05-11 14:55 | NUR ---
PATIENT IS CRYING AND INCONSOLABLE, REQUESTS TO SPEAK TO HER PSYCHIATRIST. WILL REPORT TO MD. WILL CONTINUE TO MONITOR.
--- NOTE | 2020-05-11 15:58 | NUR ---
FOLLOWED UP ON PICC LINE INSERTION, LEFT MESSAGE WITH PICC LINE ABOUT ETA. WILL FOLLOW UP. WILL CONTINUE TO MONITOR.
[2020-05-11 16:00] VITALS: BP 87/43
--- NOTE | 2020-05-11 16:20 | NUR ---
NO INSULIN COVERAGE NEEDED FOR BLOOD GLUCOSE OF 79. V/S TAKEN BP 87/43, HR 89. PATIENT IS ASLEEP AND IN BED. MD IS AWARE OF LOW BP, PICC LINE NURSE STILL AWAITING. WILL CONTINUE TO MONITOR.
--- NOTE | 2020-05-11 17:30 | NUR ---
IV INSERTED BY AM NURSELILY, LEFT FA 20G. NO SIGNS OF DISTRESS NOTED, IVF RESUMED. WILL CONTINUE TO MONITOR.
--- NOTE | 2020-05-11 19:20 | NUR ---
ENDORSED TO CHICKEN CLEANER NURSE FOR CONTINUITY OF CARE.
--- NOTE | 2020-05-11 19:30 | NUR ---
RECEIVED ENDORSEMENT FOR[facility] KAYLA WALKER AT BEDSIDE FOR CONTINUITY OF CARE, PT IN STABLE CONDITION.
[2020-05-11 20:00] VITALS: BP 122/77
--- NOTE | 2020-05-11 20:34 | NUR ---
UPDATED NEXT OF KIN AND EMERGENCY CONTACT SON PJ TIAN. PICC LINE NURSE NATHALIE HER TO PROVIDE PICC LINE TO PATIENT.
--- NOTE | 2020-05-11 21:31 | NUR ---
CXR CONFIRMATION FOR RIGHT UPPER PICC LINE. PT DECLINED TO TAKE ORDERED MEDICATION OF BUSPAR AND NEURONTIN.
[2020-05-11] MEDS: HYDROcodone/APAP 5/325 MG 1 TAB TAB PO PRN (23:11)
[2020-05-11 23:27] LABS: ANION GAP 19.7 (8-16); CARBON DIOXIDE 17.5 mmol/L (21-32); POTASSIUM 5.2 mmol/L (3.5-5.1)
[2020-05-11 23:36] LABS: CREATININE 7.5 mg/dL (0.6-1.3)
[2020-05-12] VITALS: BP 91/40
--- NOTE | 2020-05-12 | NUR ---
PT C/O PAIN AND WAS GIVEN 1 TAB NORCO 5/325 MG PO FOR MODERATE GENERALIZED PAIN. ALSO [facility] POWDER TRUCK DRIVER REPORTED CRITICAL LABS OF POTASSIUM 5.2; BUN 128 AND CREATININE 7.5. THESE VALUES ARE TRENDING DOWN NO NEED TO REPORT TO MD. V/S IN NORMAL LIMITS. ALL FALLS PROTOCOL IN PLACE.
[2020-05-12 04:00] VITALS: BP 91/42
--- NOTE | 2020-05-12 04:00 | NUR ---
PT IN BED AWAKE, DECCLINES ANY PAIN NO C/O VOICED , V/S FOLLOWS: T 97.8 P 90 R 18 B/P 91/42 02 95% WITH ROOM AIR. PICC LINE INTACT AND RUNNING FLUIDS ORDERED. ALL PRECAUTIONS IN PLACE ORDERED.
--- NOTE | 2020-05-12 06:00 | NUR ---
FINGERSTICK IS 116, NO NEED FOR HUMALOG COVERAGE, PT HAS NO C/O VOICED FLUIDS RUNNING ORDERED, ALL PROCOL IN PLACE.
[2020-05-12] MEDS: DEXT 5% / NACL 0.45% 1,000 ML IV SCH ×3 (06:24→16:45)
[2020-05-12] MEDS: BLOOD GLUCOSE MONITORING 1 DEV DEV FS SCH ×4 (06:25→20:33)
--- NOTE | 2020-05-12 07:20 | NUR ---
RECEIVED PATIENT FROM CLIENT LIAISON NURSE FOR CONTINUITY OF CARE. PATIENT IS ASLEEP AND IN BED, EASILY AWAKEN - WHEN AWAKE SHE CAN FOLLOW SIMPLE COMMANDS. RESPIRATIONS EVEN AND UNLABORED, ON ROOM AIR WITH SAO2 AT 95%. PICC LINE IN PLACE ON EDDIE ,W/ ON GOING IVF INFUSING PER ORDERS. ROLLE CATHETER IN PLACE DRAINING CLEAR U.O. PLAN OF CARE DISCUSSED, VERBALIZE UNDERSTANDING. SAFETY PRECAUTIONS IN PLACE. NO SIGNS OF DISTRESS NOTED. CALL LIGHT WITHIN REACH. WILL CONTINUE TO MONITOR.
[2020-05-12 07:49] LABS: BASOPHILS # (AUTO) 0.1 K/uL (0.00-0.22); BASOPHILS % (AUTO) 0.7 % (0.0-2.0); EOSINOPHILS # (AUTO) 0.1 K/uL (0-0.4); EOSINOPHILS % (AUTO) 1.6 % (0.0-4.0); HEMATOCRIT 27.3 % (36-48); HEMOGLOBIN 8.7 g/dL (12.0-16.0); LYMPHOCYTES # (AUTO) 1.9 K/uL (2.5-16.5); LYMPHOCYTES % (AUTO) 24.2 % (20.5-51.1); MEAN CORPUSCULAR HEMOGLOBIN 27 pg (27-31); MEAN CORPUSCULAR HGB CONC 32 g/dL (33-37); MEAN CORPUSCULAR VOLUME 85.4 fL (80-94); MONOCYTES # (AUTO) 0.6 K/uL (0.8-1.0); MONOCYTES % (AUTO) 7.9 % (1.7-9.3); NEUTROPHILS # (AUTO) 5.2 K/uL (1.8-7.7); NEUTROPHILS % (AUTO) 65.6 % (42.2-75.2); PLATELET COUNT (AUTO) 201 K/uL (140-450); RED BLOOD CELL COUNT(AUTO) 3.19 MIL/uL (4.20-5.40); RED CELL DISTRIBUTION WIDTH 18.3 % (11.6-13.7)
[2020-05-12 08:00] VITALS: BP 83/57
[2020-05-12 08:04] LABS: ANION GAP 18.3 (8-16); CARBON DIOXIDE 18.7 mmol/L (21-32)
[2020-05-12 08:11] LABS: CREATININE 6.1 mg/dL (0.6-1.3)
[2020-05-12 08:25] LABS: MAGNESIUM 2.5 mg/dL (1.8-2.4); PHOSPHORUS 7.7 mg/dL (2.5-4.9)
[2020-05-12] MEDS: busPIRone 5 MG TAB PO SCH (08:55)
[2020-05-12] MEDS: SERTRALINE 50 MG TAB PO SCH (08:56)
[2020-05-12] MEDS: GABAPENTIN 300 MG CAP PO SCH ×2 (08:56→20:34)
[2020-05-12] MEDS: lisinopriL 10 MG TAB PO SCH (08:56)
--- NOTE | 2020-05-12 08:56 | NUR ---
ATTEMPTED TO GIVE MORNING MEDICATIONS. PATIENT REFUSES ALL MEDICATIONS STATING THAT SHE HAS NOT TAKEN THESE MEDICATIONS IN MONTHS. WILL REPORT TO MD. WILL CONTINUE TO MONITOR.
--- NOTE | 2020-05-12 10:40 | NUR ---
REPORTED TO DR. ELY ABOUT PATIENT'S REFUSAL TO TAKE MEDICATIONS. DR. ELY IS BY THE BEDSIDE AND EXPLAINED BENEFITS OF MEDICATIONS. NEW MEDICATION ORDERS PLACED BY DR. ELY. WILL FOLLOW THROUGH. WILL CONTINUE TO MONITOR.
[2020-05-12 12:00] VITALS: BP 106/49
--- NOTE | 2020-05-12 12:02 | NUR ---
NO INSULIN COVERAGE GIVEN FOR BLOOD GLUCOSE OF 124. V/S TAKEN AND IS WNL. WILL CONTINUE TO MONITOR.
--- NOTE | 2020-05-12 14:49 | NUR ---
PATIENT'S LUNCH TRAY IS UNTOUCHED. PATIENT REFUSES TO EAT LUNCH, BUT DRINKS 2 JUICE BOXES. EDUCATED PATIENT ON IMPORTANCE OF NUTRITION, PATIENT VERBALIZES UNDERSTANDING BUT STILL REFUSES TO EAT. WILL CONTINUE TO MONITOR.
[2020-05-12 16:00] VITALS: BP 104/52
--- NOTE | 2020-05-12 16:46 | NUR ---
NO INSULIN COVERAGE NEEDED FOR BLOOD GLUCOSE OF 120. NO SIGNS OF DISTRESS NOTED. V/S TAKEN AND IS WNL. WILL CONTINUE TO MONITOR.
--- NOTE | 2020-05-12 19:10 | NUR ---
ENDORSED TO RAVELER RN FOR CONTINUITY OF CARE.
--- NOTE | 2020-05-12 19:30 | NUR ---
RECEIVED REPORT FORM DENISE RN DAYSHIFT NURSE AT BEDSIDE FOR CONTINUITY OF CARE, PT IN STABLE CONDITION.
[2020-05-12 20:00] VITALS: BP 106/54
--- NOTE | 2020-05-12 20:00 | NUR ---
PT SITTING UP IN BED PICKING AT HER DINNER LESS THAN 25% WAS EATEN. IV SITE RIGHT UPPER PICC LINE DOUBLE LUMEN INTACT AND ASYMPTOMATIC RUNNING D5 1/2 N/S AT 150MLS/HR. PT DENIES ANY PAIN AT THIS TIME. PT HAS ROLLE CATHETER INTACT AND DRAINED CLOSE TO 1000MLS. V/S FOLLOWS: T 98.6 P 101 R 19 B/P 106/54 02 96% ON ROOM AIR. ALL FALLS PRECAUTIONS IN PLACE.
--- NOTE | 2020-05-12 21:15 | NUR ---
PT FINGERSTICK IS 134, NO HUMALOG COVERAGE NEEDED. PT DID AGREE TO TAKE THE ORDERED NEURONTIN FOR DIABETIC FOOT PAIN. EDUCATION REGARDING MEDICATION PROVIDED AT BEDSIDE, PT NEED REINFORCEMENT DUE TO CONFUSION. IV SITE INTACT AND RUNNING FLUIDS ORDERED VIA PICC LINE. ROLLE CATHETER INTACT AND ASYMPTOMATIC. PT ASSISTED WITH REPOSITIONING IN BED. ALL REQUESTS ATTENDED BY STAFF. ALL FALLS PRECAUTIONS IN PLACE.
[2020-05-12] MEDS: HYDROcodone/APAP 5/325 MG 1 TAB TAB PO PRN (22:37)
[2020-05-12] MEDS: ALPRAZolam 0.5 MG TAB PO PRN (22:37)
--- NOTE | 2020-05-12 22:40 | NUR ---
PT C/O OF MODERATE GENERALIZED PAIN, GIVEN REQUESTED NORCO WELL REQUESTED XANAX FOR ANXIETY.
[2020-05-13] VITALS: BP 114/54
--- NOTE | 2020-05-13 | NUR ---
PT ASSISTED WITH TURNED AND REPOSITION IN BED. NO S/S OF PAIN OR DISTRESS NOTED D5 1/2 NS BAG REPLACED. V/S FOLLOWS: T 97.8 P 90 R 16 B/P 114/54 02 94% ON ROOM AIR. ALL ORDERED PRECAUTIONS IN PLACE.
[2020-05-13] MEDS: DEXT 5% / NACL 0.45% 1,000 ML IV SCH ×4 (02:38→22:38)
[2020-05-13 04:00] VITALS: BP 142/64
--- NOTE | 2020-05-13 04:00 | NUR ---
PT IN BED AOX2-3 IV SITE INTACT AND ASYMPTOMATIC RUNNING FLUIDS ORDERED. V/S FOLLOWS: T 97.3 P 88 R 18 B/P 142/64 02 99%.
[2020-05-13] MEDS: HYDROcodone/APAP 5/325 MG 1 TAB TAB PO PRN ×4 (04:56→22:45)
[2020-05-13] MEDS: ALPRAZolam 0.5 MG TAB PO PRN ×2 (04:56→17:03)
--- NOTE | 2020-05-13 05:00 | NUR ---
PT IN BED C/O PAIN AND ANXIETY WAS GIVEN PO/PRN XANAX AND NORCO . ALL REQUESTED ATTENDED BY STAFF AND CALL MONIQUE IN REACH.
--- NOTE | 2020-05-13 06:30 | NUR ---
FINGERSTICK IS 107 NO HUMALOG COVERAGE NEEDED.
--- NOTE | 2020-05-13 06:30 | NUR ---
FINGERSTICK IS 107 NO HUMALOG COVERAGE NEEDED.
[2020-05-13 06:41] LABS: BASOPHILS % (AUTO) 0.6 % (0.0-2.0); EOSINOPHILS # (AUTO) 0.1 K/uL (0-0.4); HEMATOCRIT 29.4 % (36-48); HEMOGLOBIN 9.3 g/dL (12.0-16.0); LYMPHOCYTES # (AUTO) 0.9 K/uL (2.5-16.5); LYMPHOCYTES % (AUTO) 15.7 % (20.5-51.1); MEAN CORPUSCULAR HEMOGLOBIN 27 pg (27-31); MEAN CORPUSCULAR HGB CONC 32 g/dL (33-37); MEAN CORPUSCULAR VOLUME 84.1 fL (80-94); MONOCYTES # (AUTO) 0.3 K/uL (0.8-1.0); MONOCYTES % (AUTO) 5.4 % (1.7-9.3); NEUTROPHILS # (AUTO) 4.4 K/uL (1.8-7.7); NEUTROPHILS % (AUTO) 77.3 % (42.2-75.2); PLATELET COUNT (AUTO) 211 K/uL (140-450); RED BLOOD CELL COUNT(AUTO) 3.49 MIL/uL (4.20-5.40); RED CELL DISTRIBUTION WIDTH 17.9 % (11.6-13.7); WHITE BLOOD COUNT (AUTO) 5.7 K/uL (4.8-10.8)
[2020-05-13] MEDS: BLOOD GLUCOSE MONITORING 1 DEV DEV FS SCH ×4 (06:47→20:31)
--- NOTE | 2020-05-13 07:14 | NUR ---
RECEIVED FROM ELECTRICAL MANUFACTURING ENGINEER NURSE, AWAKE ,ALERT,ORIENTEDX2, BREATHING SPONTANEOUSLY AT ROOM AIR, NOT IN DISTRESS NOTED. WITH ONGOING IV FLUID D5 1/2 NS AT 150ML/H INFUSING WELL AT PICC LINE DOUBLE LUMEN NOTED.SAFETY MEASURES PROVIDED.
[2020-05-13 07:18] LABS: ANION GAP 15.3 (8-16); CARBON DIOXIDE 20.8 mmol/L (21-32); CREATININE 1.8 mg/dL (0.6-1.3); POTASSIUM 5.1 mmol/L (3.5-5.1)
[2020-05-13 08:00] VITALS: BP 137/70
[2020-05-13 08:41] LABS: PHOSPHORUS 3.5 mg/dL (2.5-4.9)
[2020-05-13] MEDS: GABAPENTIN 300 MG CAP PO SCH ×2 (08:41→20:32)
[2020-05-13] MEDS: lisinopriL 10 MG TAB PO SCH (08:42)
[2020-05-13] MEDS: SERTRALINE 50 MG TAB PO SCH (08:42)
--- NOTE | 2020-05-13 08:49 | NUR ---
FULLY AWAKE, DUE MEDICATIONS GIVEN. TOLERATED ORALLY
[2020-05-13] MEDS: ONDANSETRON 4 MG/2 ML VIAL IVP PRN (10:02)
--- NOTE | 2020-05-13 10:11 | NUR ---
VOMITED ONCE APPROXIMATELY 20ML YELLOWISH IN COLOR NOTED AND COMPLAINED OF STOMACHACHE. NORCO AND ZOFRAN NEEDED GIVEN. CONTINUE MONITOR
[2020-05-13 12:00] VITALS: BP 133/68
--- NOTE | 2020-05-13 12:10 | NUR ---
PASSED LARGE AMOUNT OF LOOSE STOOL, CLEANSE BY DIRECTOR OF SECURITIES AND REAL ESTATE AND ASSISTED WELL.
--- NOTE | 2020-05-13 12:58 | NUR ---
BLOOD SUGAR-118, NO INSULIN COVERAGE. LUNCH SERVED.
--- NOTE | 2020-05-13 13:53 | NUR ---
FORK LIFT TECHNICIAN NOTE: LANG ATTEMPTED TO CONTACTED PATIENT'S DAUGHTER PJ TIAN [phone] AND LEFT VM TO COMPLETE ASSESSMENT. LANG WILL FOLLOW UP. Addendum: 05/14/20 at 1039 by Mateus Llamas LANG CONTACTED PATIENT'S EMERGENCY CONTACT, PJ TIAN. LANG LEFT VM TO COMPLETE ASSESSMENT. LANG WILL FOLLOW UP.
--- NOTE | 2020-05-13 14:05 | NUR ---
AWAKE AND APPARENTLY TALKING TO THE PHONE, NOT IN DISTRESS NOTED.
--- NOTE | 2020-05-13 15:35 | NUR ---
DC [age] YRS OLD FEMALE PATIENT WAS ADMITTED FROM HOME WITH A DX OF HYPERKALEMIA RENAL FAILURE AND HYPOXIA, PT HAS A HX OF DM, HTN, ANXIETY, SARCOIDOSIS, CHRONIC PAIN SYNDROME. CXR HYPOEXPANDED LUNGS WITH BRONCHOVASCULAR CROWDING AND BIBASILAR ATELECTASIS. ADMINISTER IVF , CONSULTED WITH FLUID POWER MECHANIC AND PSYCHOLOGIST BLOOD AND URINE CULTURES ARE PENDING. DC PLAN TO GO HOME WHEN STABLE CM TO FOLLOW.
[2020-05-13 16:00] VITALS: BP 134/75
--- NOTE | 2020-05-13 16:20 | NUR ---
05/13/20 RD INITIAL ASSESSMENT COMPLETED PLEASE REFER TO NUTRITION ASSESSMENT UNDER CARE ACTIVITY FOR ESTIMATED NUTRITIONAL NEEDS. 1. CONTINUE REGULAR DIET TOLERATED 2. RECOMMEND ENSURE CLEAR TID 3. ENCOURAGE PO INTAKE 4. RD TO FOLLOW-UP 2-3 DAYS, HIGH RISK CARLYLE ZAPIEN, RD
--- NOTE | 2020-05-13 16:45 | NUR ---
COMPLAINED OF STOMACH ACHE, NORCO ORDERED PRN GIVEN. KEPT COMFORTABLE TO BED. CONTINUE MONITOR.
--- NOTE | 2020-05-13 17:09 | NUR ---
APPARENTLY ANXIOUS AND CRYING NOTED AFTER TALKING TO THE PHONE. XANAX ORDERED PRN GIVEN. SAFETY MEASURES IN PLACE
--- NOTE | 2020-05-13 18:32 | NUR ---
FULLY AWAKE AND HAVING HER DINNER, NOT IN DISTRESS. VERBALIZED NO PAIN AND FEEL BETTER. SAFETY MEASURES IN PLACE.
--- NOTE | 2020-05-13 19:10 | NUR ---
RECEIVED PT IN TABLE CONDITION FROM AM NURSE . TELE PT. ASLEEP BUT AROUSE EASILY WHEN NAME CALLED. CONFUSED AT TIMES. NO C/O ANY DISCOMFORT NOR PAIN NOTED. IVF INFUSING WELL ON THE EDDIE PICC LINE X2 LUMEN. WITH ROLLE CATHETER DRAINING WELL TO YELLOW COLORED URINE. BED ON LOW POSITION. FREQ ROUNDS NEEDED. SIDE RAILS UP X2, CALL LIGHT PLACED WITHIN REACH AND BED ALARM ON. WILL CONTINUE TO MONITOR.
--- NOTE | 2020-05-13 19:11 | NUR ---
ENDORSED TO JOINT SETTER NURSE IN STABLE CONDITION
[2020-05-13] MEDS: ACETAMINOPHEN 325 MG TAB PO PRN (19:59)
[2020-05-13 20:00] VITALS: BP 149/77
--- NOTE | 2020-05-13 20:31 | NUR ---
BLOOD SUGAR WAS CHECKED RESULT 122. NO INSULIN COVERAGE NEEDED. IVF INFUSING WELL.
--- NOTE | 2020-05-13 22:45 | NUR ---
C/O GEN PAIN 07/13. MEDICATED WITH NORCO. WILL CONTINUE TO MONITOR.
--- NOTE | 2020-05-13 23:45 | NUR ---
CHECKED ON PT . NO MORE S/ PAIN. SLEEPING WELL.
[2020-05-14] VITALS: BP 148/79
[2020-05-14] MEDS: DEXT 5% / NACL 0.45% 1,000 ML IV SCH ×3 (00:47→11:58)
--- NOTE | 2020-05-14 02:00 | NUR ---
PT JUST HAD A LARGE SOFT STOOL. CLEANED AND KEPT DRY. REPOSITIONED FOR COMFORT AFTER .
[2020-05-14] MEDS: ACETAMINOPHEN 325 MG TAB PO PRN ×2 (02:18→11:19)
[2020-05-14 03:45] VITALS: BP 129/65
--- NOTE | 2020-05-14 04:55 | NUR ---
URINE SPECIMEN COLLECTED FOR RANDOM NA ,CHLORIDE AND CREATININE CLEARANCE. SEND TO LAB.
[2020-05-14] MEDS: BLOOD GLUCOSE MONITORING 1 DEV DEV FS SCH ×2 (06:02→11:30)
--- NOTE | 2020-05-14 06:02 | NUR ---
BLOOD SUGAR WAS CHECKED THIS AM RESULT 129. NO INSULIN NEEDED.
[2020-05-14 06:34] LABS: BASOPHILS % (AUTO) 0.6 % (0.0-2.0); EOSINOPHILS # (AUTO) 0.1 K/uL (0-0.4); EOSINOPHILS % (AUTO) 1.8 % (0.0-4.0); HEMATOCRIT 30.4 % (36-48); HEMOGLOBIN 9.8 g/dL (12.0-16.0); LYMPHOCYTES # (AUTO) 1.6 K/uL (2.5-16.5); LYMPHOCYTES % (AUTO) 20.6 % (20.5-51.1); MEAN CORPUSCULAR HEMOGLOBIN 27 pg (27-31); MEAN CORPUSCULAR HGB CONC 32 g/dL (33-37); MONOCYTES # (AUTO) 0.5 K/uL (0.8-1.0); MONOCYTES % (AUTO) 6.5 % (1.7-9.3); NEUTROPHILS # (AUTO) 5.6 K/uL (1.8-7.7); NEUTROPHILS % (AUTO) 70.5 % (42.2-75.2); PLATELET COUNT (AUTO) 207 K/uL (140-450); RED BLOOD CELL COUNT(AUTO) 3.58 MIL/uL (4.20-5.40); RED CELL DISTRIBUTION WIDTH 17.3 % (11.6-13.7); WHITE BLOOD COUNT (AUTO) 7.9 K/uL (4.8-10.8)
[2020-05-14 07:12] LABS: ANION GAP 12.9 (8-16); CARBON DIOXIDE 24.7 mmol/L (21-32); CREATININE 1.1 mg/dL (0.6-1.3); POTASSIUM 4.6 mmol/L (3.5-5.1)
--- NOTE | 2020-05-14 07:15 | NUR ---
ENDORSED PT IN STABLE CONDITION TO AM NURSE.
--- NOTE | 2020-05-14 07:16 | NUR ---
RECEIVED REPORT FROM BICYCLE MESSENGER NURSE GHAZALA FOR CONTINUITY OF CARE. PATIENT IN STABLE CONDITION. RESPIRATIONS EVEN AND UNLABORED, ROOM AIR. IV ACCESS INTACT AND PATENT. BED IN LOW POSITION. BED ALARM ON. CALL LIGHT WITHIN REACH. WILL CONTINUE TO MONITOR.
[2020-05-14 07:47] LABS: MAGNESIUM 1.7 mg/dL (1.8-2.4); PHOSPHORUS 2.2 mg/dL (2.5-4.9)
[2020-05-14 08:00] VITALS: BP 150/73
[2020-05-14] MEDS: SERTRALINE 50 MG TAB PO SCH (08:14)
[2020-05-14] MEDS: lisinopriL 10 MG TAB PO SCH (08:15)
[2020-05-14] MEDS: ONDANSETRON 4 MG/2 ML VIAL IVP PRN (08:15)
[2020-05-14] MEDS: GABAPENTIN 300 MG CAP PO SCH (08:15)
[2020-05-14] MEDS: HYDROcodone/APAP 5/325 MG 1 TAB TAB PO PRN (08:15)
--- NOTE | 2020-05-14 08:15 | NUR ---
GAVE ORDERED DUE MEDICATIONS AT THIS TIME. PATIENT TOLERATED WELL. BED IN LOW POSITION. BED ALARM ON. CALL LIGHT WITHIN REACH. WILL CONTINUE TO MONITOR.
--- NOTE | 2020-05-14 10:14 | NUR ---
CLEANED AND CHANGED LINEN AT THIS TIME. PATIENT TOLERATED WELL. BED IN LOW POSITION. BED ALARM ON. CALL LIGHT WITHIN REACH. WILL CONTINUE TO MONITOR.
[2020-05-14] MEDS: ALPRAZolam 0.5 MG TAB PO PRN (11:19)
--- NOTE | 2020-05-14 11:19 | NUR ---
GAVE PRN PAIN MEDICATION FOR HEADACHE AT PATIENT'S REQUEST. PATIENT TOLERATED WELL. BED IN LOW POSITION. CALL LIGHT AT BEDSIDE. WILL CONTINUE TO MONITOR.
[2020-05-14 11:34] LABS: CREATININE,URINE RANDOM 90 mg/dL (30-125)
[2020-05-14 12:00] VITALS: BP 144/79
--- NOTE | 2020-05-14 13:01 | NUR ---
GAVE PATIENT TUNA SANDWICH AT THIS TIME. PER PATIENT REQUEST. PATIENT DID NOT WANT MAIN LUNCH ENTREE.
--- NOTE | 2020-05-14 16:25 | NUR ---
GAVE DISCHARGE INSTRUCTIONS AND ANSWERED ALL QUESTIONS AT THIS TIME. PATIENT VERBALIZED UNDERSTANDING. PATIENT GETTING DRESSED AND CALLED FOR [employer]BER TO PUBLIC RELATIONS STUDIES DIRECTOR AND TAKE PATIENT HOME.
--- NOTE | 2020-05-14 17:45 | NUR ---
PATIENT ID BAND REMOVED, IV ACCESS REMOVED, LUMEN INTACT. PATIENT WHEELED TO LOBBY IN WHEELCHAIR WITH ALL BELONGINGS IN STABLE CONDITION. UBER EQUIPMENT SCHEDULER WAITING TO TAKE PATIENT HOME.
== END 2020-05-14 17:45 | disposition home or self-care (01) | DRG 640 ==
LOC: MED 14:49 → MTU 18:05
PROVIDERS: ADMIT Family Medicine; ATTEND Family Medicine
PROC: 02HV33Z Insertion of Infusion Device into Superior Vena Cava, Percutaneous Approach (ICD-10-PCS; principal; 2020-05-11)
PROC: B548ZZA Ultrasonography of Superior Vena Cava, Guidance (ICD-10-PCS; 2020-05-11)
DX: E86.0 Dehydration (principal); N17.0 Acute kidney failure with tubular necrosis; Z68.41 Body mass index [BMI] 40.0-44.9, adult; E87.5 Hyperkalemia; E83.41 Hypermagnesemia; E83.39 Other disorders of phosphorus metabolism; E66.01 Morbid (severe) obesity due to excess calories; F41.9 Anxiety disorder, unspecified; F32.9 Major depressive disorder, single episode, unspecified; M54.9 Dorsalgia, unspecified; N18.3 Chronic kidney disease, stage 3 (moderate); I12.9 Hypertensive chronic kidney disease with stage 1 through stage 4 chronic kidney disease, or unspecified chronic kidney disease; E11.22 Type 2 diabetes mellitus with diabetic chronic kidney disease; D86.9 Sarcoidosis, unspecified; G89.4 Chronic pain syndrome; Z88.8 Allergy status to other drugs, medicaments and biological substances; Z90.710 Acquired absence of both cervix and uterus; Z79.82 Long term (current) use of aspirin; Z71.3 Dietary counseling and surveillance; Z79.899 Other long term (current) drug therapy; Z91.018 Allergy to other foods; Z82.3 Family history of stroke; Z82.49 Family history of ischemic heart disease and other diseases of the circulatory system; Z80.3 Family history of malignant neoplasm of breast
CPT/HCPCS: 36415; 71045; 76770; 80048; 80053; 80305; 81003; 82150; 82436; 82570; 82948; 83036; 83605; 83690; 83735; 83880; 84100; 84132; 84300; 84439; 84484; 85025; 85610; 87040; 87081; 87086; 93005; 96361; 96374; 96375; 96376; 99291; C1751; J0610; J1815; J2405; J3490; J7030; Q0092

== ENCOUNTER 2022-01-01 10:28 | Emergency (ER) | payer OTHER ==
[~2022-01-01] VITALS: Ht 175.3 cm; Wt 135.6 kg
[~2022-01-01 10:28] MED LIST changes: -LISI10TA11 PO; +LISI10TA30 PO
[2022-01-01 10:30] VITALS: BP 127/67
--- NOTE | 2022-01-01 10:40 | NUR ---
Patient came in BIBA and taken to bed 9.
--- NOTE | 2022-01-01 10:53 | NUR ---
61 y/o female BIBA from home. Patient states she had "a white head on her lower abdomen. Patient picked at the site to self-treat it." Patient has a 7/10 pain level to her lower abdomen and lower back. Patient's skin is warm to touch and red on the surrounding site. The area where the white head was at is excoriated from patient picking at it. No edema, no discharge or foul odor noted. Patient has Nausea and Vomiting. Medical History: DM, DEPRESSION ALLERGIES: SEE LIST
--- NOTE | 2022-01-01 12:36 | NUR ---
XRAY AT BEDSIDE
--- NOTE | 2022-01-01 12:51 | NUR ---
Sagar NEGRETE at beside drawing labs.
--- NOTE | 2022-01-01 13:28 | NUR ---
PT PLACED ON BEDPAN BEDSIDE TO COLLECT UA
--- NOTE | 2022-01-01 14:03 | NUR ---
PT URINATED BEDSIDE, BUT UNABLE TO OBTAIN UA DUE TO PATIENT MISSING BEDPAN
--- NOTE | 2022-01-01 14:04 | NUR ---
Patient appears to be resting comfortably in bed. Vital Signs within normal limits. Respirations even and unlabored.
[2022-01-01 14:09] LABS: BASOPHILS % (AUTO) 0.7 % (0.0-2.0); EOSINOPHILS # (AUTO) 0.1 K/uL (0-0.4); EOSINOPHILS % (AUTO) 0.8 % (0.0-4.0); HEMATOCRIT 38.5 % (36-48); HEMOGLOBIN 11.7 g/dL (12.0-16.0); LYMPHOCYTES # (AUTO) 0.7 K/uL (2.5-16.5); LYMPHOCYTES % (AUTO) 10.5 % (20.5-51.1); MEAN CORPUSCULAR HEMOGLOBIN 26 pg (27-31); MEAN CORPUSCULAR HGB CONC 31 g/dL (33-37); MONOCYTES # (AUTO) 0.4 K/uL (0.8-1.0); MONOCYTES % (AUTO) 6.3 % (1.7-9.3); NEUTROPHILS # (AUTO) 5.7 K/uL (1.8-7.7); NEUTROPHILS % (AUTO) 81.7 % (42.2-75.2); PLATELET COUNT (AUTO) 241 K/uL (140-450); RED BLOOD CELL COUNT(AUTO) 4.53 MIL/uL (4.20-5.40); RED CELL DISTRIBUTION WIDTH 19.8 % (11.6-13.7); WHITE BLOOD COUNT (AUTO) 6.9 K/uL (4.8-10.8)
--- NOTE | 2022-01-01 14:09 | NUR ---
PT REQUESTING FOOD AT THIS TIME. ER MD MADE AWARE AND INFORMED PATIENT IS TO NOT EAT AT THIS TIME DUE TO WAITING FOR LABS
[2022-01-01 14:15] LABS: PROTHROMBIN TIME 10.2 secs (10.8-13.4)
[2022-01-01 14:31] LABS: ALBUMIN 3.7 g/dL (3.4-5.0); ANION GAP 14.4 (8-16); CARBON DIOXIDE 26.5 mmol/L (21-32); CREATININE 0.7 mg/dL (0.6-1.3); POTASSIUM 3.9 mmol/L (3.5-5.1); TOTAL BILIRUBIN 0.4 mg/dL (0.0-1.0)
[2022-01-01] MEDS: NACL 0.9% 1,000 ML IV ONE (14:32)
[2022-01-01] MEDS ORDERED: cefTRIAXone 1,000 MG VIAL ONE (14:37)
--- NOTE | 2022-01-01 14:43 | NUR ---
Dr. Solares at bedside evaluating patient.
[2022-01-01] MEDS ORDERED: CLIN300C2 PO (14:52)
--- NOTE | 2022-01-01 16:27 | NUR ---
PT W/C ASSISTED TO RESTROOM
--- NOTE | 2022-01-01 16:37 | NUR ---
Patient discharged with v/s stable. Written and verbal after care instructions given. Patient alert, oriented and verbalized understanding of instructions. Wheel Chair Assisted with to LOBBY. All questions addressed prior to discharge. ID band removed. Patient advised to follow up with PMD. Rx of CLINDAMYCIN given. Opportunity to ask questions provided and answered.
[2022-01-01 16:39] VITALS: BP 127/59
--- NOTE | 2022-01-01 16:40 | NUR ---
Chart checked and completed. The patient's care was reviewed and supervised by Lana Mariee, RN, RN.
== END 2022-01-01 16:37 | disposition home or self-care (01) ==
LOC: MED 10:28
DX: L03.311 Cellulitis of abdominal wall (principal); E11.9 Type 2 diabetes mellitus without complications; F41.9 Anxiety disorder, unspecified; F32.9 Major depressive disorder, single episode, unspecified; Z79.899 Other long term (current) drug therapy; Z79.82 Long term (current) use of aspirin; Z88.2 Allergy status to sulfonamides; Z88.1 Allergy status to other antibiotic agents; Z88.8 Allergy status to other drugs, medicaments and biological substances; Z88.6 Allergy status to analgesic agent
CPT/HCPCS: 36415; 71045; 80053; 82550; 82553; 83605; 83874; 83880; 85025; 85610; 85730; 87040; 96365; 99285; J0696; Q0092